=== PATIENT | female | born 1935 | race Caucasian/White ===

== ENCOUNTER → 2023-04-27 | Emergency (ER) | payer OTHER, BC ==
--- OUTSIDE RECORDS SUMMARY | 2023-04-27 17:27 | XMS REPORT | Continuity of Care Document ---
Author Name Unknown Address [address] [place] [address] thconnect Address [address] [facility] 1 495 [place] [address] Care Team Providers Care Projects Manager Name Role Phone PCP, PATIENT DOES NOT HAVE A Primary Care Physic jordan Unavailable KIM SULTANA Attending Clinician Unavailable MOSHE LEWIS Attending Clinician Unavailable EMBER ATKINSON Attending Clinician UnavailKIM Hardin Admitting Clinician Unavailable Payers Payer Name Policy Type Policy Number Effective Date Expirati on Date Source MEDICARE PART A \T\ B [id number] 2002 00:00:00 Dotted BlockGABRIELLE EDWARDS [id number] 2005 00:00:00 Problems Condition Name Condition Details Condition Category Status Onset Date Resolution Date Last Treatment Date Treating Clinician Comments Source Problem Condition [facility] Allergies, Adverse Reactions, Alerts Allergy Name Allergy Type Status Severity Reaction(s) Onset Date Inactive Date Treating Clinician Comments Source SULFA (SULFONA MIDE ANTIBIOT ICS) Drug Class Active Other-Cmnt 2018-03 00:00: 00 [facility] PENICILL IN DRUG INGREDI Active Anaphylaxis 2018-03 00:00: 00 [facility] Penicill in Allergy to substanc e Active Unknown 12-18 00:00: 00 [facility] Sulfonam hetal Allergy to substanc e Active Unknown 12-18 00:00: 00 [facility] Social History Social Habit Start Date Stop Date Quantity Comments Source Sex Ass[birth year] At 1935 00:00:00 1935 00:00:00 Female [facility] Smoking Status Start Date Stop Date Source Never smoked tobacco (finding) [facility] Medications Ordered Medication Name Filled Medication Name Start Date Stop Date Current Medication? Ordering Clinician Indication Dosage Frequency Signature (SIG) Comments Components Source Aspirin (Halfprin) 81 Mg TABEC No 81mg Daily [facility] Carvedilol (Coreg) 6.25 Mg TAB No 6.25mg Twic e A Day [facility] [place] Calcium1 Tab No 1 Twice A Day [facility] Lovastatin (Mevacor Immediate Release) 40 Mg TAB No 80mg Bedtime [facility] Multivitami ns/Minerals (Centrum Silver) 1 Tab TABLET No 1 Daily [facility] Solifenacin (Vesicare) 10 Mg TAB No 10mg Daily [facility] Tramadol Hcl (Ultram) 50 Mg TAB No 50mg Prn Pain [facility] Valsartan (Diovan) 160 Mg TAB No 160mg Bedtime [facility] Aspirin (Halfprin) 81 Mg TABEC No 81mg Daily [facility] Calcium/Vit negron D (Citracal + D) 1 Tab TAB No 1 Twice A Day [facility] Carvedilol (Coreg) 6.25 Mg TAB No 6.25mg Twic e A Day [facility] Lovastatin (Mevacor Immediate Release) 40 Mg TAB No 80mg Bedtime [facility] Multivitami ns/Minerals (Centrum Silver) 1 Tab TABLET No 1 Daily [facility] Solifenacin (Vesicare) 10 Mg TAB No 10mg Daily [facility] Tramadol Hcl (Ultram) 50 Mg TAB No 50mg Prn Pain [facility] Valsartan (Diovan) 160 Mg TAB No 160mg Bedtime [facility] Aspirin (Halfprin) 81 Mg TABEC No 81mg Daily [facility] Calcium/Vit negron D (Citracal + D) 1 Tab TAB No 1 Twice A Day [facility] Carvedilol (Coreg) 6.25 Mg TAB No 6.25mg Twic e A Day [facility] Lovastatin (Mevacor Immediate Release) 40 Mg TAB No 80mg Bedtime [facility] Multivitami ns/Minerals (Centrum Silver) 1 Tab TABLET No 1 Daily [facility] Solifenacin (Vesicare) 10 Mg TAB No 10mg Daily [facility] Tramadol Hcl (Ultram) 50 Mg TAB No 50mg Prn Pain [facility] Valsartan (Diovan) 160 Mg TAB No 160mg [facility] Start Date/Time End Date/Time Encounter Type Admission Type Attending Clinicians Care Facility Care Department Encounter ID Source 2020-08-08 12:25:00 2020-08-08 14:35:00 Emergency X KIM SULTANA RUST ERT [id number] [facility] 2019-07-30 00:00:00 2019-08-29 00:01:00 Outpatient MOSHE CHOPRA [id number] [facility] 2019-06-30 10:38:00 2019-06-30 10:38:00 Discharged Recurring MOSHE CHOPRA [id number] [facility] 2019-06-01 08:41:00 2019-06-01 08:41:00 Discharged Recurring MOSHE CHOPRA [id number] [facility] 2019-03-27 00:56:30 2019-03-27 02:41:00 Emergency X EMBER ATKINSON RUST ERT [id number] [facility] Results Test Description Test Time Test Comments Results Result Co mments Source [facility] 2022-04-06 1506 >100,000 CFU/ML [facility] 2022-04-06 1507 OXIDASE NEGATIVE GRAM NEGATIVE BACILLI ISOLATED PRELIMINARY REPORT [facility] 2022-04-06 1508 ID AND/OR SENSITIVITY TO FOLLOW PRELIMINARY REPORT MG Mammo Digital Screening [id number] 08:57:13Patient: QASIM HARDIN Date/Time05/18/2018 14:17 CSTReason for ExamMAMMO SCREENI NGReportCAD MAMMOGRAM: With tomocenthesisCOMPARISON: [facility] 2012CLINICAL INFORMATION: ScreeningRoutine mediolateral and craniocaudal films of the breasts are made. Fibronodular changes in both breast which are unchanged from the prior mammogram in 2012. No malignantappearing calcifications are seen. There is no evidence of skin thickening, nipple retraction or abnormal microcalcification.Both breasts show predominantly heterogeneously dense parenchymal pattern.IMPRESSION: Stable mammogram compared to 2012.BI-RADS: Category 2 - Benign - Routine mammography screening.Patient has been entered into an automated recall system regarding future mammogram followup. Final Dictated by: MD Anderson Craig ADictated DT/TM: 05/19/2018 8:56 amSigned by: MD Anderson Craig ASigned (Electronic Signature): 05/19/2018 8:57 amLEXISCAN KAYLEEN. REST/[id number] 14:31:[address] [address]ALTVEAOXEB IMAGING REPORTPatient Name: Agusto HARDIN of Service: [id number]: [id number] Sex: F Order #: [id number] Room: OPEDOB: 1935 X-Ray Number: [id number] Record Number: [id number] Hospital Number: [id number] Physician: MARIA TERESA CHICAS - Ordering Physician: MARIA TERESA CHICAS -NUCLEAR CARDIAC EVALUATION WITH REST AND STRESS:CLINICAL HISTORY: Chronic dyspnea, sleep apnea and hypertensionTECHNIQUE: This patientwas administered 10.2 millicuries of [id number] labeled Myoview intravenously for the resting portion of thisexamination. The stress portion of examination was monitored by . Stress was achieved utilizing intravenous Lexiscan. An mhjcvgaoei19.2 mCi of the tracer was injected intravenously for the stress portionof examination.FINDINGS: There is a normal distribution of tracer demonstrated on theresting sequence.The stress images are also normal with no evidence of a stress-induceddefect.Calculated left ventricular ejection fraction is 67%.Dynamic wall motion images are normal.Impre ssion: Normal examinationElectronically Signed By: Nelson Burgess M.D., 10/03/2016 2:29 PMLegalltherese authenticated by MARCELL Flower 2016-10-03 14:29:38
--- NOTE | 2023-04-27 18:21 | RAD REPORT ---
EXAM DESCRIPTION: RAD - Knee Left 3 View - 04/27/2023 6:15 pm CLINICAL HISTORY: fall COMPARISON: No comparisons FINDINGS/IMPRESSION: No acute fracture. No malalignment. No significant focal degenerative changes. Peripheral vascular calcifications.
--- NOTE | 2023-04-27 18:22 | RAD REPORT ---
EXAM DESCRIPTION: RAD - Hip Left 2 View - 04/27/2023 6:15 pm CLINICAL HISTORY: fall COMPARISON: No comparisons FINDINGS/IMPRESSION: No acute fracture. Intact left hip arthroplasty. No dislocation.
[2023-04-27 18:29] LABS: Absolute Lymphocytes (CBC) 1.1 K/uL (0.7-4.9); Hematocrit 39.7 % (36.0-45.0); Lymphocytes % 17.2 % (15.3-44.8); Platelets 147 thou/uL (152-406); RBC Red Blood Cell Count 4.22 M/uL (3.86-4.86)
[2023-04-27 18:48] LABS: Specific Gravity 1.007 (1.005-1.030); Urine Bacteria None Seen /HPF (<20); Urine Bilirubin NEGATIVE (Negative); Urine Blood Negative (Negative); Urine Clarity Clear (Clear); Urine Color Colorless (Yellow); Urine Glucose NEGATIVE (Negative); Urine Protein NEGATIVE (Negative); Urine RBC <5 /HPF (None Seen); Urine Urobilinogen Normal (Normal)
[2023-04-27 18:52] LABS: Albumin 3.2 g/dL (3.4-5.0); Bilirubin Direct 0.2 mg/dL (0-0.2); Bilirubin Indirect, Calculated 0.5 mg/dL (0.2-0.8); Bilirubin Total 0.7 mg/dL (0.2-1.0); Potassium 3.5 mEq/L (3.5-5.1); Protein, Total 6.9 g/dL (6.4-8.2); Troponin High Sensitivity 27.6 pg/mL (<58.9)
--- NOTE | 2023-04-27 19:11 | ER ---
Nurse's Notes [facility] Name: Nerissa Batista Age: 88 yrs Sex: Female : 1935 Arrival Date: 04/27/2023 Time: 17:25 Bed 5 Private MD: Diagnosis: Mechanical fall Presentation: 04/27 17:47 Chief complaint: EMS states: Pt from [facility], this morning she was attempting to ph get out of bed to silence her cell phone and slid out of bed onto the floor, was unable to get up, was not found until this afternoon. Pt was able to stand w/ assistance, mild pain to L knee, family reports that she has been non-compliant w/ daily medications and they are concerned about a possible UTI. Pt A\T\O, BGL WNL. Coronavirus screen: Vaccine status: Patient reports receiving the 2nd dose of the covid vaccine. Ebola Screen: No symptoms or risks identified at this time. Initial Sepsis Screen: Does the patient meet any 2 criteria? No. Patient's initial sepsis screen is negative. Does the patient have a suspected source of infection? No. Patient's initial sepsis screen is negative. Risk Assessment: Do you want to hurt yourself or someone else? Patient reports no desire to harm self or others. Onset of symptoms was April 27, 2023. 17:47 Method Of Arrival: EMS: [facility] ph 17:47 Acuity: LIN 2 ph Historical: - Allergies: 18:35 PENICILLINS; aa5 18:35 Sulfa (Sulfonamide Antibiotics); aa5 - Home Meds: 19:10 losartan 25 mg oral tablet 1 tab daily [Active]; levothyroxine 75 mcg tablet 1 tab ph daily [Active]; - PMHx: 18:49 Hypertensive disorder; Hypothyroidism; ph - Immunization history:: Adult Immunizations unknown. - Social history:: Smoking status: Patient denies any tobacco usage or history of. - Family history:: not pertinent. Screenin:[address] [facility] ED Fall Risk Assessment (Adult) History of falling in the last 3 months, ph including since admission Yes- single mechanical fall (1 pt) Confusion or Disorientation No (0 pts) Intoxicated or Sedated No (0 pts) Impaired Gait No (0 pts) Mobility Assist Device Used Yes (1 pt) Altered Elimination Yes (1 pt) Score/Fall Risk Level 3 or more points = High Risk Oriented to surroundings, Maintained a safe environment, Hourly rounding (assess needs \T\ fall precautionary measures) done, Used ambulatory aids as needed (educated on \T\ assisted with). Abuse screen: Denies threats or abuse. Denies injuries from another. Nutritional screening: No deficits noted. Tuberculosis screening: No symptoms or risk factors identified. Assessment: 18:45 General: Appears in no apparent distress. comfortable, slender, well groomed, Behavior ph is calm, cooperative, appropriate for age, Denies fever, feeling ill. Pain: Complains of pain in posterior aspect of left knee. Neuro: Level of Consciousness is awake, alert, obeys commands, Oriented to person, place, time, situation. Cardiovascular: Capillary refill < 3 seconds in bilateral fingers Patient's skin is warm and dry. Respiratory: Airway is patent Respiratory effort is even, unlabored. GI: No signs and/or symptoms were reported involving the gastrointestinal system. : No signs and/or symptoms were reported regarding the genitourinary system. Derm: Skin is pink, warm \T\ dry. Musculoskeletal: Circulation, motion, and sensation intact. Range of motion: intact in all extremities. 19:07 Reassessment: Patient appears in no apparent distress at this time. Patient and/or ph family updated on plan of care and expected duration. Pain level reassessed. Daughter went to [facility] and picked up home medication, Losartan 25 mg and Levothyroxine 0.075 mg, dose of losartan given. Vital Signs: 17:47 BP 170 / 118; Pulse 89; Resp 18; Temp 98; Pulse Ox 100% on R/A; Weight 61.23 kg; Height ph 5 ft. 3 in. ; 18:49 BP 194 / 88; Pulse 84; Resp 18; Pulse Ox 99% on R/A; ph 19:00 BP 190 / 91; Pulse 89; Resp 16; Pulse Ox 100% ; vc1 17:47 Body Mass Index 23.91 (61.23 kg, 160.02 cm) ED Course: 17:26 Patient arrived in ED. ph 17:27 Topher Rodriguez MD is Attending Physician. rt 17:46 Gladys Muhammad RN is Primary Nurse. ph 17:52 Triage completed. ph 17:53 Arm band placed on Patient placed in an exam room. ph 17:54 Patient has correct armband on for positive identification. Placed in gown. Bed in low ph position. Call light in reach. Side rails up X2. Client placed on continuous cardiac and pulse oximetry monitoring. NIBP monitoring applied. 18:17 Knee Left 3 View XRAY In Process Unspecified. EDMS 18:17 Hip Left 2 View XRAY In Process Unspecified. EDMS 18:18 Missed attempt(s): 22 gauge in right antecubital area. Bleeding controlled, band aid ds4 applied, catheter tip intact. 18:30 Urine collected: sent to lab. aa5 19:43 No provider procedures requiring assistance completed. Patient did not have IV access vc1 during this emergency room visit. Administered Medications: No medications were administered Medication: 17:54 VIS not applicable for this client. ph Outcome: 19:10 Discharge ordered by . rt 19:43 Discharged to home via wheelchair, with family, vc1 19:43 Condition: good 19:43 Discharge instructions given to patient, family, Instructed on discharge instructions, follow up and referral plans. Demonstrated understanding of instructions, follow-up care, 19:43 Patient left the ED. vc1 Signatures: Dispatcher [employer] EDMelody Wilson RN RN aa5 Ravi Chatterjee ds4 Gladys Muhammad, FINA RN ph Kellee Zaldivar RN RN vc1 Topher Rodriguez MD MD rt
--- NOTE | 2023-04-27 19:11 | EDPHYS ---
Physician Documentation [facility] Name: Nerissa Batista Age: 88 yrs Sex: Female : 1935 Arrival Date: 04/27/2023 Time: 17:25 Bed 5 Private MD: ED Physician Topher Rodriguez HPI: 04/27 18:24 This 88 yrs old Female presents to ER via EMS with complaints of fall. rt 18:24 Patient presents to the ED with mechanical fall. Patient slid out of bed, landing onto rt her left side. She states that she hit her left thigh, denies significant pain to that area. The patient adamantly denies hitting her head, denies any head, neck pain. Denies any pain to the right leg. Patient states that she was unable to get up following the fall and has been lying on the floor for many hours. Denies other acute complaints at this time, symptoms are moderate in severity, no other aggravating elevating factors.. Historical: - Allergies: 18:35 PENICILLINS; aa5 18:35 Sulfa (Sulfonamide Antibiotics); aa5 - Home Meds: 19:10 losartan 25 mg oral tablet 1 tab daily [Active]; levothyroxine 75 mcg tablet 1 tab ph daily [Active]; - PMHx: 18:49 Hypertensive disorder; Hypothyroidism; ph - Immunization history:: Adult Immunizations unknown. - Social history:: Smoking status: Patient denies any tobacco usage or history of. - Family history:: not pertinent. ROS: 18:24 Constitutional: Negative for fever, chills, and weight loss, Cardiovascular: Negative rt for chest pain, palpitations, and edema, Respiratory: Negative for shortness of breath, cough, wheezing, and pleuritic chest pain, Abdomen/GI: Negative for abdominal pain, nausea, vomiting, diarrhea, and constipation, Skin: Negative for injury, rash, and discoloration, Neuro: Negative for headache, weakness, numbness, tingling, and seizure, Psych: Negative for depression, anxiety, suicide ideation, homicidal ideation, and hallucinations, 18:24 MS/extremity: Positive for pain, Negative for deformity, Exam: 18:24 Constitutional: This is a well developed, well nourished patient who is awake, alert, rt and in no acute distress. Head/Face: Normocephalic, atraumatic. Neck: Trachea midline, no thyromegaly or masses palpated, and no cervical lymphadenopathy. Supple, full range of motion without nuchal rigidity, or vertebral point tenderness. No Meningismus. Chest/axilla: Normal chest wall appearance and motion. Nontender with no deformity. No lesions are appreciated. Cardiovascular: Regular rate and rhythm with a normal S1 and S2. No gallops, murmurs, or rubs. Normal PMI, no JVD. No pulse deficits. Respiratory: Lungs have equal breath sounds bilaterally, clear to auscultation and percussion. No rales, rhonchi or wheezes noted. No increased work of breathing, no retractions or nasal flaring. Abdomen/GI: Soft, non-tender, with normal bowel sounds. No distension or tympany. No guarding or rebound. No evidence of tenderness throughout. Back: No spinal tenderness. No costovertebral tenderness. Full range of motion. Skin: Warm, dry with normal turgor. Normal color with no rashes, no lesions, and no evidence of cellulitis. MS/ Extremity: Pulses equal, no cyanosis. Neurovascular intact. Full, normal range of motion. Neuro: Awake and alert, GCS 15, oriented to person, place, time, and situation. Cranial nerves II-XII grossly intact. Motor strength 5/5 in all extremities. Sensory grossly intact. Cerebellar exam normal. Normal gait. Psych: Awake, alert, with orientation to person, place and time. Behavior, mood, and affect are within normal limits. 19:03 ECG was reviewed by the Attending Physician. rt Vital Signs: 17:47 BP 170 / 118; Pulse 89; Resp 18; Temp 98; Pulse Ox 100% on R/A; Weight 61.23 kg; Height ph 5 ft. 3 in. ; 18:49 BP 194 / 88; Pulse 84; Resp 18; Pulse Ox 99% on R/A; ph 19:00 BP 190 / 91; Pulse 89; Resp 16; Pulse Ox 100% ; vc1 17:47 Body Mass Index 23.91 (61.23 kg, 160.02 cm) ph MDM: 17:27 Patient medically screened. rt 19:11 Differential Diagnosis Fall, fracture, electrolyte disturbance, rhabdomyolysis, UTI. rt Data reviewed: vital signs, nurses notes, lab test result(s), EKG, radiologic studies. Consideration of Admission/Observation Escalation of care including admission/observation considered. No syncopal event, labs benign, no benefit from admission at this time.. Independent interpretation of the following test(s) in the Emergency Department X-Ray: My interpretation is No fracture seen on interpretation of x-ray images. Test considered but Not performed: CT: Patient remembers the entire event, no loss of consciousness, adamantly denies head trauma, CT scan of the head not indicated. Care significantly affected by the following chronic conditions: Hypertension. Counseling: I had a detailed discussion with the patient and/or guardian regarding the historical points, exam findings, and any diagnostic results supporting the discharge/admit diagnosis, the presence of at least one elevated blood pressure reading (>120/80) during this emergency department visit, lab results, radiology results, the need for outpatient follow up, to return to the emergency department if symptoms worsen or persist or if there are any questions or concerns that arise at home. 04/27 17:28 Order name: Basic Metabolic Panel; Complete Time: 18:59 rt 04/27 17:28 Order name: CBC with Diff; Complete Time: 18:59 rt 04/27 17:28 Order name: LFT's; Complete Time: 18:59 rt 04/27 17:28 Order name: Magnesium; Complete Time: 18:59 rt 04/27 17:28 Order name: Troponin HS; Complete Time: 18:59 rt 04/27 17:28 Order name: CPK; Complete Time: 18:59 rt 04/27 17:52 Order name: UAM; Complete Time: 18:59 04/27 17:28 Order name: Knee Left 3 View XRAY; Complete Time: 18:23 rt 04/27 17:28 Order name: Hip Left 2 View XRAY; Complete Time: 18:23 rt 04/27 17:28 Order name: EKG; Complete Time: 17:28 rt 04/27 17:28 Order name: Cardiac monitoring; Complete Time: 18:13 04/27 17:28 Order name: EKG - Nurse/Tech; Complete Time: 18:13 04/27 17:28 Order name: IV Saline Lock; Complete Time: 18:13 04/27 17:28 Order name: Labs collected and sent; Complete Time: 18:13 04/27 17:28 Order name: O2 Per Protocol; Complete Time: 18:13 rt 04/27 17:28 Order name: O2 Sat Monitoring; Complete Time: 18:13 rt EC:03 Rate is 81 beats/min. Rhythm is regular, Normal Sinus Rhythm with No ectopy. QRS Maybell rt is Normal. MI interval is normal. QRS interval is normal. QT interval is normal. No Q waves. T waves are Normal. No ST changes noted. Interpreted by me. Administered Medications: No medications were administered Disposition Summary: 04/27/23 19:10 Discharge Ordered Notes: Location: Home rt Problem: new rt Symptoms: have improved rt Condition: Stable rt Diagnosis - Mechanical fall rt Followup: rt - With: Private Physician - When: 2 - 3 days - Reason: Discharge Instructions: - Discharge Summary Sheet rt - Fall Prevention in the Home, Adult rt Forms: - Medication Reconciliation Form rt - Thank You Letter rt - Antibiotic Education rt - Prescription Opioid Use rt - Patient Portal Instructions rt - Leadership Thank You Letter rt Signatures: Dispatcher [employer] Melody Sanabria RN RN aa5 Gladys Muhammad RN RN ph Michael, MD DINORAH Obando rt
[2023-04-27 21:46] VITALS: BP 190/91; TEMP 98; O2SAT 100
== END ==
LOC: ER 17:25
DX: M25.552 Pain in left hip (principal); M25.562 Pain in left knee; W06.XXXA Fall from bed, initial encounter; E03.9 Hypothyroidism, unspecified; I10 Essential (primary) hypertension; Z88.0 Allergy status to penicillin; Z88.2 Allergy status to sulfonamides
CPT/HCPCS: 36415; 80048; 80076; 81001; 82550; 83735; 84484; 85025; 93005

== ENCOUNTER → 2023-06-10 | Emergency (ER) | payer OTHER, BC ==
[~2023-06-10] MED LIST: HYDROCODONE/APAP 5/325 MG TAB ONE; ONDANSETRON 4 MG (ODT) TAB ONE
--- OUTSIDE RECORDS SUMMARY | 2023-06-10 19:54 | XMS REPORT | Continuity of Care Document ---
Author Name Unknown Address [address] [place] [address] [address] [place] [address] [facility] thconnect Address [address] [facility]. [address] [place] [address] Care Team Providers Care Slurry Worker Name Role Phone PCP, PATIENT DOES NOT HAVE A Primary Care Physic jordan Unavailable KIM SULTANA Attending Clinician Unavailable MOSHE LEWIS Attending Clinician Unavailable EMBER ATKINSON Attending Clinician UnavailKIM Hardin Admitting Clinician Unavailable Payers Payer Name Policy Type Policy Number Effective Date Expirati on Date Source MEDICARE PART A \T\ B [id number] 2002 00:00:00 KAYLIN EDWARDS [id number] 2005 00:00:00 Problems Condition Name Condition Details Condition Category Status Onset Date Resolution Date Last Treatment Date Treating Clinician Comments Source Problem Condition [facility] Allergies, Adverse Reactions, Alerts Allergy Name Allergy Type Status Severity Reaction(s) Onset Date Inactive Date Treating Clinician Comments Source SULFA (SULFONA MIDE ANTIBIOT ICS) Drug Class Active Other-Cmnt 2018-03 00:00: 00 [facility] acute hospital PENICILL IN DRUG INGREDI Active Anaphylaxis 2018-03 00:00: 00 General acute hospital Penicill in Allergy to substanc e Active Unknown 12-18 00:00: 00 [facility] Sulfonam hetal Allergy to substanc e Active Unknown 12-18 00:00: 00 [facility] Social History Social Habit Start Date Stop Date Quantity Comments Source Sex Assigned At 1935 00:00:00 1935 00:00:00 Female [facility] [employer] Smoking Status Start Date Stop Date Source Never smoked tobacco (finding) [facility] Medications Ordered Medication Name Filled Medication Name Start Date Stop Date Current Medication? Ordering Clinician Indication Dosage Frequency Signature (SIG) Comments Components Source Aspirin (Halfprin) 81 Mg TABEC No 81mg Daily [facility] Carvedilol (Coreg) 6.25 Mg TAB No 6.25mg Twic e A Day [facility] [place] Calcium1 Tab No 1 Twice A Day [facility] Lovastatin (Mevacor Immediate Release) 40 Mg TAB No 80mg Bedtime [facility] Multivitami ns/Minerals (Centrum Silver) 1 Tab TABLET No 1 Daily [facility] Solifenacin (Vesicare) 10 Mg TAB No 10mg Daily [facility] Tramadol Hcl (Ultram) 50 Mg TAB No 50mg Prn Pain [facility] Valsartan (Diovan) 160 Mg TAB No 160mg Bedtime C [facility] Aspirin (Halfprin) 81 Mg TABEC No 81mg Daily [facility] Calcium/Vit negron D (Citracal + D) 1 Tab TAB No 1 Twice A Day [facility] Carvedilol (Coreg) 6.25 Mg TAB No 6.25mg Twic e A Day [facility] Lovastatin (Mevacor Immediate Release) 40 Mg TAB No 80mg Bedtime [facility] Multivitami ns/Minerals (Centrum Silver) 1 Tab TABLET No 1 Daily [facility] Solifenacin (Vesicare) 10 Mg TAB No 10mg Daily [facility] Tramadol Hcl (Ultram) 50 Mg TAB No 50mg Prn Pain [facility] Valsartan (Diovan) 160 Mg TAB No 160mg Bedtime C [facility] Aspirin (Halfprin) 81 Mg TABEC No 81mg Daily [facility] Calcium/Vit negron D (Citracal + D) 1 Tab TAB No 1 Twice A Day [facility] Carvedilol (Coreg) 6.25 Mg TAB No 6.25mg Twic e A Day [facility] Lovastatin (Mevacor Immediate Release) 40 Mg TAB No 80mg Bedtime [facility] Multivitami ns/Minerals (Centrum Silver) 1 Tab TABLET No 1 Daily [facility] Solifenacin (Vesicare) 10 Mg TAB No 10mg Daily [facility] Tramadol Hcl (Ultram) 50 Mg TAB No 50mg Prn Pain [facility] Valsartan (Diovan) 160 Mg TAB No 160mg [facility] Start Date/Time End Date/Time Encounter Type Admission Type Attending [facility] Care Department Encounter ID Source 2020-08-08 12:25:00 2020-08-08 14:35:00 Emergency X SULTANAKIM DUBOSE [facility] ERT [id number] General acute hospital 2019-07-30 00:00:00 2019-08-29 00:01:00 Outpatient MOSHE CHOPRA [id number] [facility] 2019-06-30 10:38:00 2019-06-30 10:38:00 Discharged Recurring MOSHE CHOPRA [id number] [facility] 2019-06-01 08:41:00 2019-06-01 08:41:00 Discharged Recurring MOSHE CHOPRA [id number] [facility] 2019-03-27 00:56:30 2019-03-27 02:41:00 Emergency X EMBER ATKINSON [facility] ERT [id number] General acute hospital Results Test Description Test Time Test Comments Results Result Co mments Source [facility] 2022-04-06 1506 >100,000 CFU/ML [facility] 2022-04-06 1507 OXIDASE NEGATIVE GRAM NEGATIVE BACILLI ISOLATED PRELIMINARY REPORT [facility] 2022-04-06 1508 ID AND/OR SENSITIVITY TO FOLLOW PRELIMINARY REPORT MG Mammo Digital Screening [id number] 08:57:13Patient: QASIM HARDIN Date/Time05/18/2018 14:17 CSTReason for ExamMAMMO SCREEN INGReportCAD MAMMOGRAM: With tomocenthesisCOMPARISON: [facility] 2012CLINICAL INFORMATION: ScreeningRoutine mediolateral and craniocaudal films of the breasts are made. Fibronodular changes in both breast which are unchanged from the prior mammogram in 2012. No malignant appearing calcifications are seen. There is no evidence [...] ASigned (Electronic Signature): 05/19/2018 8:57 amLEXISCAN KAYLEEN. REST/[id number] 14:31:[address] [address]BLBFILUFWX IMAGING REPORTPatient Name: Agusto HARDIN of Service: [id number]: 81 Sex: F Order #: [id number] Room: OPEDOB: 1935 X-Ray Number: [id number] Record Number: [id number] Hospital Number: [id number] Physician: MARIA TERESA CHICAS - Ordering Physician: MARIA TERESA CHICAS -NUCLEAR CARDIAC EVALUATION WITH REST AND STRESS:CLINICAL HISTORY: Chronic dyspnea, sleep apnea and hypertensionTECHNIQUE: This patientwas administered 10.2 millicuries of oknhqsnopk81j labeled Myoview intravenously for the resting portion of thisexamination. The stress portion of examination was monitored by . Stress was achieved utilizing intravenous Lexiscan. An duczmdqeui65.2 mCi of the tracer was injected intravenously for the stress portionof examination.FINDINGS: There is a normal distribution of tracer demonstrated on theresting sequence.The stress images are also normal with no evidence of a stress-induceddefect.Calculated left ventricular ejection fraction is 67%.Dynamic wall motion images are normal.Impre ssion: Normal examinationElectronically Signed By: Neslon Burgess M.D., 10/03/2016 2:29 PMLegally authenticated by MARCELL Flower 2016-10-03 14:29:38
--- NOTE | 2023-06-10 21:05 | RAD REPORT ---
EXAM DESCRIPTION: CT - Chest Abd Pelvis Wo Con - 06/10/2023 8:51 pm CLINICAL HISTORY: Chest and abdomen pain. acute fall, spinal and flank pain COMPARISON: No comparisons TECHNIQUE: A limited noncontrast study was performed. All CT scans are performed using dose optimization technique as appropriate and may include automated exposure control or mA/KV adjustment according to patient size. FINDINGS: There is a mildly displaced fracture posterior left tenth and eleventh rib. Posterior nint h rib may also be fractured.The lungs are emphysematous.Small left pleural effusion.No intrathoracic adenopathy. The liver, spleen, pancreas, adrenal glands and kidneys are within normal limits. No bowel obstruction, free air, free fluid or abscess. No pathologic lymphadenopathy in the abdomen or pelvis. Moderate lumbar degenerative changes. IMPRESSION: Mildly displaced left posterior tenth and eleventh ribs with small left pleural effusion .
--- NOTE | 2023-06-10 21:44 | EDPHYS ---
Physician Documentation [facility] Name: Nerissa Batista Age: 88 yrs Sex: Female : 1935 Arrival Date: 06/10/2023 Time: 19:52 Bed DX3 Private MD: ED Physician Tima Tena HPI: 06/09 20:04 This 88 yrs old Female presents to ER via Unassigned with complaints of Fall sp4 Injury. Historical: - Allergies: 20:13 PENICILLINS; nj1 20:13 Sulfa (Sulfonamide Antibiotics); nj1 - PMHx: 20:13 Hypertensive disorder; Hypothyroidism; nj1 - Immunization history:: Client reports receiving the 2nd dose of the Covid vaccine, Adult Immunizations. - Social history:: Smoking status: Patient denies any tobacco usage or history of. Vital Signs: 20:01 BP 184 / 80; Pulse 86; Resp 18; Temp 98(O); Pulse Ox 99% on R/A; Weight 54.43 kg; nj1 Height 5 ft. 3 in. ; 21:59 BP 171 / 81; Pulse 84; Resp 17 S; Temp 97.6(TE); Pulse Ox 99% on R/A; lg3 20:01 Body Mass Index 21.26 (54.43 kg, 160.02 cm) nj1 MDM: 20:31 Patient medically screened. sp4 21:26 ED course: EXAM DESCRIPTION: CT - Chest Abd Pelvis Wo Con - 06/10/2023 8:51 pm CLINICAL sp4 HISTORY: Chest and abdomen pain. acute fall, spinal and flank pain COMPARISON: No comparisons TECHNIQUE: A limited noncontrast study was performed. All CT scans are performed using dose optimization technique as appropriate and may include automated exposure control or mA/KV adjustment according to patient size. FINDINGS: There is a mildly displaced fracture posterior left tenth and eleventh rib. Posterior ninth rib may also be fractured.The lungs are emphysematous.Small left pleural effusion.No intrathoracic adenopathy. The liver, spleen, pancreas, adrenal glands and kidneys are within normal limits. No bowel obstruction, free air, free fluid or abscess. No pathologic lymphadenopathy in the abdomen or pelvis. Moderate lumbar degenerative changes. IMPRESSION: Mildly displaced left posterior tenth and eleventh ribs with small left pleural effusion. Signed By: Pastor Humphries MD. 21:42 Differential diagnosis: closed head injury, contusion, fracture, laceration, multiple sp4 trauma, sprain, strain. Data reviewed: vital signs, nurses notes, radiologic studies, CT scan. ED course: CT has revealed left posterior 10th and 11th rib fracture with a small pleural effusion. No sign of hemothorax or pneumothorax. Patient is stable for discharge home at this time with p.o. as needed [place], p.o. as needed Robaxin and also advised to use incentive spirometer every 2 hours. . 06/09 20:14 Order name: CT Chest Abdomen Pelvis W/O Contrast sp4 Administered Medications: 20:19 Drug: HYDROcodone-acetaminophen PO 5 mg-325 mg 1 tabs PO once Route: PO; nj1 22:03 Follow up: Response: No adverse reaction lg3 20:19 Drug: Ondansetron PO 4 mg PO once Route: PO; nj1 22:03 Follow up: Response: No adverse reaction lg3 Disposition Summary: 06/10/23 21:44 Discharge Ordered Problem: new sp4 Symptoms: have improved sp4 Condition: Stable sp4 Diagnosis - Multiple fractures of ribs, right side sp4 - Acute fall at home, left 10th rib fracture, left posterior 11th rib fracture, left sp4 small pleural effusion Followup: sp4 - With: Private Physician - When: 10 - 14 days - Reason: Recheck today's complaints Discharge Instructions: - Discharge Summary Sheet sp4 - How to Use an Incentive Spirometer sp4 - Rib Fracture, [id number] sp4 Forms: - Patient Portal Instructions sp4 Prescriptions: - methocarbamol 750 mg Oral tablet - take 1 tablet ORAL route every 8 hours PRN muscle soreness; 30 tablet; Refills: sp4 0, Product Selection Permitted Signatures: Dispatcher [employer] Tima Hess MD MD sp4 Lee Ann Haynes RN RN nj1 Grace Mosley RN lg3
--- NOTE | 2023-06-10 21:44 | ER ---
Nurse's Notes [facility] Name: Nerissa Batista Age: 88 yrs Sex: Female : 1935 Arrival Date: 06/10/2023 Time: 19:52 Bed DX3 Private MD: Diagnosis: Multiple fractures of ribs, right side;Acute fall at home, left 10th rib fracture, left posterior 11th rib fracture, left small pleural effusion Presentation: 06/09 20:01 Chief complaint: Patient states: was attempting to get up the commode, lost her balance nj1 and fell hitting edge of shower rim. Patient's son or daughter states: Fell in the bathroom today. co left sided back/ribs pain since. Coronavirus screen: Vaccine status: Patient reports receiving the 2nd dose of the covid vaccine. Ebola Screen: Patient denies travel to an Ebola-affected area in the 21 days before illness onset. Initial Sepsis Screen: Does the patient meet any 2 criteria? No. Patient's initial sepsis screen is negative. Does the patient have a suspected source of infection? No. Patient's initial sepsis screen is negative. Risk Assessment: Do you want to hurt yourself or someone else? Patient reports no desire to harm self or others. Onset of symptoms was June 10, 2023. 20:01 Method Of Arrival: Wheelchair nj1 20:01 Acuity: LIN 3 nj1 Historical: - Allergies: 20:13 PENICILLINS; nj1 20:13 Sulfa (Sulfonamide Antibiotics); nj1 - PMHx: 20:13 Hypertensive disorder; Hypothyroidism; nj1 - Immunization history:: Client reports receiving the 2nd dose of the Covid vaccine, Adult Immunizations. - Social history:: Smoking status: Patient denies any tobacco usage or history of. Screenin:59 [facility] ED Fall Risk Assessment (Adult) History of falling in the last 3 months, lg3 including since admission Yes- single mechanical fall (1 pt) Confusion or Disorientation No (0 pts) Intoxicated or Sedated No (0 pts) Impaired Gait Yes (1 pt) Mobility Assist Device Used Yes (1 pt) Altered Elimination No (0 pt) Score/Fall Risk Level 3 or more points = High Risk Oriented to surroundings, Maintained a safe environment, Educated pt \T\ family on fall prevention, incl call for assistance when getting out of bed, Assessed \T\ reinforced patient's understanding of fall precautions, Provided non-skid footwear. Abuse screen: Denies threats or abuse. Denies injuries from another. Nutritional screening: No deficits noted. Tuberculosis screening: No symptoms or risk factors identified. Assessment: 21:59 General: Appears in no apparent distress. comfortable, Behavior is calm, cooperative, lg3 appropriate for age. Pain: Complains of pain in left rib, back Pain does not radiate. Pain currently is 6 out of 10 on a pain scale. Neuro: No deficits noted. Gunter Agitation-Sedation Scale (RASS): 0 - Alert and Calm Level of Consciousness is awake, alert, obeys commands, Oriented to person, place, time, situation, Appropriate for age. Cardiovascular: No deficits noted. Denies chest pain, shortness of breath, Capillary refill < 3 seconds Clubbing of nail beds is absent JVD is absent Patient's skin is warm and dry. Respiratory: No deficits noted. Airway is patent Respiratory effort is even, unlabored, Respiratory pattern is regular, symmetrical, Breath sounds are clear bilaterally. GI: No deficits noted. No signs and/or symptoms were reported involving the gastrointestinal system. Abdomen is flat, non-distended. : No deficits noted. No signs and/or symptoms were reported regarding the genitourinary system. EENT: No deficits noted. No signs and/or symptoms were reported regarding the EENT system. Derm: No deficits noted. No signs and/or symptoms reported regarding the dermatologic system. Skin is intact, is healthy with good turgor, Skin is dry, Skin is normal, Skin temperature is warm. Musculoskeletal: Circulation, motion, and sensation intact. Range of motion: intact in all extremities, Reports pain in left rib, back. Vital Signs: 20:01 BP 184 / 80; Pulse 86; Resp 18; Temp 98(O); Pulse Ox 99% on R/A; Weight 54.43 kg; nj1 Height 5 ft. 3 in. ; 21:59 BP 171 / 81; Pulse 84; Resp 17 S; Temp 97.6(TE); Pulse Ox 99% on R/A; lg3 20:01 Body Mass Index 21.26 (54.43 kg, 160.02 cm) ny1 ED Course: 19:53 Patient arrived in ED. mr 20:04 Tima Tena MD is Attending Physician. sp4 20:13 Triage completed. nj1 20:14 Arm band placed on left wrist. nj1 20:52 CT Chest Abdomen Pelvis W/O Contrast In Process Unspecified. EDMS 21:59 Patient has correct armband on for positive identification. lg3 21:59 No provider procedures requiring assistance completed. Patient did not have IV access lg3 during this emergency room visit. 22:02 Provided Education on: incentive spirometer. lg3 Administered Medications: 20:19 Drug: HYDROcodone-acetaminophen PO 5 mg-325 mg 1 tabs PO once Route: PO; nj1 22:03 Follow up: Response: No adverse reaction lg3 20:19 Drug: Ondansetron PO 4 mg PO once Route: PO; nj1 22:03 Follow up: Response: No adverse reaction lg3 Medication: 21:59 VIS not applicable for this client. lg3 Outcome: 21:44 Discharge ordered by MD. 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 medication usage, Demonstrated understanding of instructions, follow-up care, medications, Prescriptions given X 2, 22:02 Patient left the ED. lg3 Signatures: Dispatcher [employer] [facility] Maria Dolores Gaming, Tashi Reg Grace Barrett, RN RN lg3 Tima Tena MD MD sp4 Lee Ann Haynes RN RN nj1
[2023-06-10 22:52] VITALS: O2SAT 99
[2023-06-10 23:21] VITALS: BP 171/81; TEMP 97.6
== END ==
LOC: ER 19:52
DX: S22.42XA Multiple fractures of ribs, left side, initial encounter for closed fracture (principal); S22.41XA Multiple fractures of ribs, right side, initial encounter for closed fracture; J90 Pleural effusion, not elsewhere classified; W18.30XA Fall on same level, unspecified, initial encounter; Y92.002 Bathroom of unspecified non-institutional (private) residence as the place of occurrence of the external cause; I10 Essential (primary) hypertension; Z88.0 Allergy status to penicillin; Z88.2 Allergy status to sulfonamides
CPT/HCPCS: 71250; 74176; 99283; Q0162

== ENCOUNTER 2024-11-10 21:22 | Inpatient (IN) | payer OTHER ==
--- OUTSIDE RECORDS SUMMARY | 2024-11-10 21:27 | XMS REPORT | Continuity of Care Document ---
Author Name Unknown Address [address] [facility] [place] [address] [facility] Address [address] [facility] 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 Name Role Phone PCP, PATIENT DOES NOT HAVE A Primary Care Physic REBECA Landeros Attending Clinician Sandra Janie Mcpherson MA Attending Clinician Mariana Hassan MA Attending Clinician Evangelina Mary MD Attending Clinician [phone] EVANGELINA PATTERSON Attending Clinician Unavail able Doctor Unassigned, [place] Attending Clinician Destiney Wade MA Attending Clinician Randi Jarrett MD, Rebeca Dewitt Attending Clinician Roz HARDEN, Adri Mclean Attending Clinician Unavail ALEXYS Wynn Attending Clinician ALEXYS Griffith Attending Clinician Unavailab Jono COPELAND, Mustapha Attending Clinician [phone] Alexys Thapa MD Attending Clinician [phone] BLANCA NOLASCO Attending Clinician Randi Call RN, Keshia Attending Clinician Unavailabl e Pob, Ad[facility] Lab Main Attending Clinician Maria Teresa Ramirez MD Attending Clinician MARIA TERESA BHATIA Attending Clinician Randi leyva Doctor Unassigned, [place] Attending Clinician U tiable KIM SULTANA Attending Clinician Unavailable MOSHE LEWIS Attending Clinician Unavailable EMBER ATKINSON Attending Clinician UnavailALEXYS Astudillo Admitting Clinician UnavailAlexys Astudillo MD Admitting Clinician KIM SULTANA Admitting Clinician Unavailable Payers Payer Name Policy Type Policy Number Effective Date Expirati on Date Source [facility] MEDICARE ADVANTAGE Medicare [id number] 2023 00:00:00 Problems Condition Name Condition Details Condition Category Status Onset Date Resolution Date Last Treatment Date Treating Clinician Comments Source Chronic constipati on Chronic constipati on Disease Active 05-04 00:00: 00 Nancioria vinay Smith Epic Dementia in other diseases classified elsewhere, unspecifie d severity, without behavioral disturbanc e, psychotic disturbanc e, mood disturbanc e, and anxiety Dementia in other diseases classified elsewhere, unspecifie d severity, without behavioral disturbanc e, psychotic disturbanc e, mood disturbanc e, and anxiety Disease Active 2- 00:00: 00 Memmaría Jones Seasonal allergies Seasonal allergies Disease Active 05-04 00:00: 00 Sherie Jones Status post fall Status post fall Disease Active 2- 00:00: 00 Sherie Jones Urge urinary incontinen ce Urge urinary incontinen ce Disease Active 2- 00:00: 00 Sherie Jones Walker as ambulation aid Walker as ambulation aid Disease Active 2- 00:00: 00 Sherie Jones Chronic pain of both knees Chronic pain of both knees Disease Active 2- 00:00: 00 Sherie Jones Chest pain Chest pain Disease Active 8-06 00:00: 00 Sherie Jones Acid reflux Acid reflux Disease Active - 00:00: 00 Memmaría Jones Alzheimer' s disease, unspecifie d Alzheimer' s disease, unspecifie d Disease Active 20208-08 00:00: 00 Sherie Jones Essential (primary) hypertensi on Essential (primary) hypertensi on Disease Active 08-08 00:00: 00 Sherie Jones Acquired hypothyroi dism Acquired hypothyroi dism Disease Active 08-08 00:00: 00 Sherie Jones CVA (cerebrova scular accident) CVA (cerebrova scular accident) Disease Active 08-08 00:00: 00 Sherie Jones Dementia Dementia Disease Active 08-08 00:00: 00 Sherie Jones Dysarthria Dysarthria Disease Active 08-08 00:00: 00 Sherie Jones Hypertensi on Hypertensi on Disease Active 08-08 00:00: 00 Sherie Jones Hypothyroi d Hypothyroi d Disease Active 08-08 00:00: 00 Sherie Jones Memory loss Memory loss Disease Active 08-08 00:00: 00 Sherie Jones Falls frequently Falls frequently Disease Active 08-08 00:00: 00 Sherie Jones Problem Condition [facility] Rib fractures Rib fractures Disease Resolve d 08-08 00:00: 00 2024-01-08 00:00:00 2024-01-08 11:33:49 Sherie Jones Allergies, Adverse Reactions, Alerts Allergy Name Allergy Type Status Severity Reaction(s) Onset Date Inactive Date Treating Clinician Comments Source PENICILL IN G DRUG INGREDI Active 08-08 00:00: 00 MHEOUT SULFA ANTIBIOT ICS Drug Class Active 08-08 00:00: 00 MHEOUT Penicill in G Propensi ty to adverse reaction s Active 08-08 00:00: 00 Sherie Jones Sulfa Antibiot ics Propensi ty to adverse reaction s Active 08-08 00:00: 00 Sherie Jones PENICILL IN G DRUG INGREDI Active High Anaphylaxis 2018-03 00:00: 00 MHEOUT Penicill in G Allergy to substanc e Active Anaphylaxis, Unknown 2018-03 00:00: 00 Sherie Jones Sulfa Antibiot ics Drug Intolera nce Active Other, Unknown 2018-03 00:00: 00 "turns my skin purple" Sherie Smith Epic SULFA ANTIBIOT ICS Drug Class Active Other 2018-03 00:00: 00 MHEOUT SULFA (SULFONA MIDE ANTIBIOT ICS) Drug Class Active Other-Cmnt 2018-03 00:00: 00 [facility] Penicill in Propensi ty to adverse reaction s Active Anaphylaxis 2018-03 00:00: 00 [facility] Sulfa (Sulfona mide Antibiot ics) Propensi ty to adverse reaction s Active Other - See comments 2018-03 00:00: 00 "turns my skin purple" [facility] PENICILL IN DRUG INGREDI Active Anaphylaxis 2018-03 00:00: 00 [facility] Penicill in Allergy to substanc e Active Unknown 12-18 00:00: [address] [facility] Sulfonam hetal Allergy to substanc e Active Unknown 12-18 00:00: 00 [facility] Social History Social Habit Start Date Stop Date Quantity Comments Source Gender identity 2023-06-22 08:33:40 Identifies as female gender (finding) Olga Jones ASSERTION Possible Olga Jones Sexual [facility] Alcoholic beverage intake 2024-06-17 00:00:00 2024-06-17 00:00:00 Lifetime non-drinker (finding) Olga Jones History of Social function 2023-11-04 00:00:00 2023-11-04 00:00:00 [facility] Tobacco use and exposure 2023-08-09 00:00:00 2023-08-09 00:00:00 Smokeless tobacco non-user Olga Jones Sex 2023-06-22 08:33:40 2023-06-22 08:33:40 Female (finding) Olga Jones Sex assigned at 1935 00:00:00 1935 00:00:00 [facility] Smoking Status Start Date Stop Date Source Tobacco smoking consumption unknown [facility] Never smoked tobacco Sherie Jones Medications Ordered Medication Name Filled Medication Name Start Date Stop Date Current Medication? Ordering Clinician Indication Dosage Frequency Signature (SIG) Comments Components Source memantine (Namenda) 5 MG tablet memantine (Namenda) 5 MG tablet -15 00:00: 00 Yes TAKE 1 TABLET BY MOUTH IN THE MORNING * TAKE 1 TABLET IN THE EVENING. Sherie Jones memantine (Namenda) 5 MG tablet memantine (Namenda) 5 MG tablet 2-04 00:00: 00 07-13 00:00 :00 No 5mg Q.5D Take 1 tablet by mouth in the morning and 1 tablet in the evening. Sehrie Jones clopidogrel (Plavix) 75 MG tablet clopidogrel (Plavix) 75 MG tablet 2023-03 00:00: 00 Yes 75mg QD TAKE 1 TABLET BY MOUTH 1 TIME EACH DAY. Sherie Jones losartan (Cozaar) 50 MG tablet losartan (Cozaar) 50 MG tablet 12-16 00:00: 00 12-16 23:59 :00 No 50mg QD Take 1 tablet by mouth 1 time each day. Sherie Smith [facility] clopidogrel (Plavix) 75 MG tablet clopidogrel (Plavix) 75 MG tablet -16 00:00: 00 02-08 00:00 :00 No 75mg QD Take 1 tablet by mouth 1 time each day. Sherie Jones loratadine 10 mg tablet 9-13 00:00: 00 Yes 10mg Take 1 tablet by mouth in the morning. [facility] acetaminoph en (acetaminop hen extra srength) 500 MG tablet acetaminoph en (acetaminop hen extra srength) 500 MG tablet 9-03 00:00: 00 Yes TAKE 1 TABLET BY MOUTH DAILY NEEDED FOR MILD PAIN (1-3). Sherie Jones donepezil (Aricept) 10 MG tablet donepezil (Aricept) 10 MG tablet 8- 00:00: 00 11-26 23:59 :00 No 10mg Take 1 tablet by mouth at bedtime. Sherie Smith [facility] acetaminoph en (Tylenol Extra Strength) 500 MG tablet acetaminoph en (Tylenol Extra Strength) 500 MG tablet 11-26 00:00: 00 12-01 00:00 :00 No 500mg Q24H Take 1 tablet by mouth daily as needed for mild pain (1-3). hSerie Jones gabapentin (Neurontin) 100 MG capsule gabapentin (Neurontin) 100 MG capsule 11-23 00:00: 00 11-26 00:00 :00 No 100mg Take 1 capsule by mouth at bedtime. Sherie Jones pneumoc 20-taiwo conj-dip cr(PF) (PREVNAR 20 (PF)) injection 0.5 mL 11-04 15:44: 10 Yes .5mL 0.5 mL, Intramuscu lar, ONCE-PRIOR TO DISCHARGE, 1 dose, Starting on Fri11/05/23 at 1044, Until Discontinu ed, Routine, Give vaccine prior to discharge [facility] aspirin chewable tablet 81 mg 11-04 14:00: 00 Yes 81mg 81 mg, Oral, DAILY, First dose on Fri11/05/23 at 0900, Until Discontinu ed, Routine [facility] enoxaparin (LOVENOX) injection 40 mg 11-04 14:00: 00 Yes 40mg 40 mg, Subcutaneo us, DAILY, First dose on Fri11/05/23 at 0900, Until Discontinu ed, Routine [facility] acetaminoph en (TYLENOL) tablet 650 mg 11-03 22:34: 24 Yes 650mg 650 mg, Oral, Q6HPRN, Starting on Fri11/04/23 at 1734, Until Discontinu ed, Routine, Pain (scale 1-3) [facility] losartan (Cozaar) 50 MG tablet losartan (Cozaar) 50 MG tablet 10-14 00:00: 00 12-15 00:00 :00 No 50mg QD Take 1 tablet by mouth 1 time each day. Sherie Jones triamcinolo ne acetonide 0.1 % cream 10-13 00:00: 00 Yes [facility] donepezil (Aricept) 5 MG tablet donepezil (Aricept) 5 MG tablet 09-23 00:00: 00 11-26 00:00 :00 No 5mg Take 1 tablet by mouth at bedtime. Sherie Jones gabapentin 100 mg capsule 09-18 00:00: 00 03-18 05:59 :00 No 100mg Take 1 capsule by mouth at bedtime. [facility] PLAVIX 75 mg tablet 09-07 00:00: 00 Yes 1 tablet Orally Once a day [facility] clopidogrel (Plavix) 75 MG tablet clopidogrel (Plavix) 75 MG tablet 09-07 00:00: 00 12-14 00:00 :00 No 75mg QD TAKE 1 TABLET BY MOUTH DAILY Sherie Jnoes losartan (Cozaar) 50 MG tablet losartan (Cozaar) 50 MG tablet 07-08 00:00: 00 10-14 00:00 :00 No 50mg QD Take 50 mg by mouth 1 time each day. Sherie Jones donepezil (Aricept) 5 MG tablet donepezil (Aricept) 5 MG tablet 06-18 00:00: 00 09-23 00:00 :00 No 5mg Take 5 mg by mouth at bedtime. Sherie Jones gabapentin (Neurontin) 100 MG capsule gabapentin (Neurontin) 100 MG capsule 06-18 00:00: 00 09-18 00:00 :00 No 100mg Q.5D Take 100 mg by mouth in the morning and 100 mg in the evening. Sherie Jones levothyroxi ne (Synthroid, Levoxyl) 75 MCG tablet levothyroxi ne (Synthroid, Levoxyl) 75 MCG tablet 00:00: 00 Yes 75ug Take 75 mcg by mouth in the morning. Take before meals. Sherie Jones Aspirin (Halfprin) 81 Mg TABEC No 81mg Daily [facility] Carvedilol (Coreg) 6.25 Mg TAB No 6.25mg Twic e A Day [facility] [place] Calcium1 Tab No [address] [facility] Lovastatin (Mevacor Immediate Release) 40 Mg TAB No 80mg Bedtime [facility] Multivitami ns/Minerals (Centrum Silver) 1 Tab TABLET No 1 [facility] Solifenacin (Vesicare) 10 Mg TAB No 10mg Daily [facility] Tramadol Hcl (Ultram) 50 Mg TAB No 50mg Prn Pain [facility] Valsartan (Diovan) 160 Mg TAB No 160mg [facility] Calcium/Vit negron D (Citracal + D) 1 Tab TAB No [address] [facility] Vital Signs Vital Name Observation Time Observation Value Comments S juanita Systolic blood pressure 2024-06-17 13:26:00 170 mm[Hg] [facility] Diastolic blood pressure 2024-06-17 13:26:00 81 mm[Hg] [facility] Heart rate 2024-06-17 13:26:00 74 /min [facility] Body temperature 2024-06-17 13:26:[address] [facility] Respiratory rate 2024-06-17 13:26:00 16 /min [facility] Body height 2024-06-17 13:26:00 153.7 cm [facility] Body weight 2024-06-17 13:26:00 70.308 kg [facility] BMI 2024-06-17 13:26:00 29.77 kg/m2 [facility] Oxygen saturation in Arterial blood by Pulse oximetry 2024-06-17 13:26:00 99 /min [facility] Systolic blood pressure 2024-06-17 13:26:00 170 mm[Hg] [facility] Diastolic blood pressure 2024-06-17 13:26:00 81 mm[Hg] [facility] Heart rate 2024-06-17 13:26:00 74 /min [facility] Body temperature 2024-06-17 13:26:[address] [facility] Respiratory rate 2024-06-17 13:26:00 16 /min [facility] Body height 2024-06-17 13:26:00 153.7 cm Anuel [facility] Luis [facility] Body weight 2024-06-17 13:26:00 70.308 kg Anuel rial [facility] BMI 2024-06-17 13:26:00 29.77 kg/m2 Anuel rial [facility] Oxygen saturation in Arterial blood by Pulse oximetry 2024-06-17 13:26:00 99 /min [facility] Systolic blood pressure 2024-05-04 11:33:00 155 mm[Hg] [facility] Diastolic blood pressure 2024-05-04 11:33:00 78 mm[Hg] [facility] Heart rate 2024-05-04 11:33:00 75 /min [facility] Body temperature 2024-05-04 11:33:00 36.5 [facility] Respiratory rate 2024-05-04 11:33:00 16 /min [facility] Body height 2024-05-04 11:33:00 152.4 cm Anuel rial [facility] Body weight 2024-05-04 11:33:00 67.586 [facility] 2024-05-04 11:33:00 29.10 kg/m2 Anuel rial [facility] Oxygen saturation in Arterial blood by Pulse oximetry 2024-05-04 11:33:00 98 /min [facility] Systolic blood pressure 2024-05-04 11:33:00 155 mm[Hg] [facility] Diastolic blood pressure 2024-05-04 11:33:00 78 mm[Hg] [facility] Heart rate 2024-05-04 11:33:00 75 /min Memor ial Johnston [facility] Body temperature 2024-05-04 11:33:00 36.5 [facility] Epic Respiratory rate 2024-05-04 11:33:00 16 /min [facility] Body height 2024-05-04 11:33:00 152.4 cm Anuel rial [facility] Body weight 2024-05-04 11:33:00 67.586 kg Anuel rial [facility] BMI 2024-05-04 11:33:00 29.10 kg/m2 Anuel rial [facility] Oxygen saturation in Arterial blood by Pulse oximetry 2024-05-04 11:33:00 98 /min [facility] Systolic blood pressure 2024-01-08 11:34:00 142 mm[Hg] [facility] Epic Diastolic blood pressure 2024-01-08 11:34:00 76 mm[Hg] [facility] Epic Heart rate 2024-01-08 11:34:00 78 /min [facility] Body temperature 2024-01-08 11:34:00 36 Jennifer [facility] Respiratory rate 2024-01-08 11:34:00 16 /min [facility] Epic Systolic blood pressure 2024-01-08 11:34:00 142 mm[Hg] [facility] Her sifuentes Epic Diastolic blood pressure 2024-01-08 11:34:00 76 mm[Hg] [facility] Epic Heart rate 2024-01-08 11:34:00 78 /min Memor ial Luis Epic Body temperature 2024-01-08 11:34:00 36 [facility] Epic Respiratory rate 2024-01-08 11:34:00 16 /min [facility] Systolic blood pressure 2023-12-15 19:23:00 184 mm[Hg] [facility] Diastolic blood pressure 2023-12-15 19:23:00 88 mm[Hg] [facility] Heart rate 2023-12-15 19:21:00 78 /min [facility] Body temperature 2023-12-15 19:21:00 37.22 [facility] Body height 2023-12-15 19:21:00 162.6 cm stated [facility] Body weight 2023-12-15 19:21:00 64.592 kg [facility] BMI 2023-12-15 19:21:00 24.44 kg/m2 [facility] Oxygen saturation in Arterial blood by Pulse oximetry 2023-12-15 19:21:00 99 /min [facility] Systolic blood pressure 2023-11-27 10:15:00 166 mm[Hg] [facility] Epic Diastolic blood pressure 2023-11-27 10:15:00 67 mm[Hg] [facility] Epic Heart rate 2023-11-27 10:15:00 81 /min Memor ial [facility] Epic Body temperature 2023-11-27 10:15:00 34 Jennifer [facility] Respiratory rate 2023-11-27 10:15:00 16 /min Olga Smith Epic Oxygen saturation in Arterial blood by Pulse oximetry 2023-11-27 10:15:00 99 /min Olga sifuentes Epic Systolic blood pressure 2023-11-27 10:15:00 166 mm[Hg] Olga sifuentes Epic Diastolic blood pressure 2023-11-27 10:15:00 67 mm[Hg] Olga sifuentes Epic Heart rate 2023-11-27 10:15:00 81 /min Memor iavinay Smith Epic Body temperature 2023-11-27 10:15:00 34 Jennifer [facility] Luis Epic Respiratory rate 2023-11-27 10:15:00 16 /min Olga Smith Epic Oxygen saturation in Arterial blood by Pulse oximetry 2023-11-27 10:15:00 99 /min [facility] Her sifuentes Epic Systolic blood pressure 2023-11-13 16:04:00 158 mm[Hg] [facility] Diastolic blood pressure 2023-11-13 16:04:00 72 mm[Hg] [facility] Heart rate 2023-11-13 16:00:00 74 /min [facility] Body weight 2023-11-13 16:00:00 62.596 kg [facility] BMI 2023-11-13 16:00:00 24.45 kg/m2 [facility] Oxygen saturation in Arterial blood by Pulse oximetry 2023-11-13 16:00:00 99 /min [facility] Systolic blood pressure 2023-11-05 18:45:00 140 mm[Hg] [facility] Diastolic blood pressure 2023-11-05 18:45:00 70 mm[Hg] [facility] Heart rate 2023-11-05 18:45:00 80 /min [facility] Body temperature 2023-11-05 18:45:00 36.83 Jennifer [facility] Respiratory rate 2023-11-05 18:45:00 17 /min [facility] Oxygen saturation in Arterial blood by Pulse oximetry 2023-11-05 18:45:00 100 /min [facility] Body height 2023-11-04 17:07:00 160 cm [facility] Body weight 2023-11-04 17:07:00 58.968 kg [facility] BMI 2023-11-04 17:07:00 23.03 kg/m2 [facility] Systolic blood pressure 2023-12-15 19:23:00 184 mm[Hg] [facility] Diastolic blood pressure 2023-12-15 19:23:00 88 mm[Hg] [facility] Heart rate 2023-12-15 19:21:00 78 /min [facility] Body temperature 2023-12-15 19:21:00 37.22 Jennifer [facility] Body height 2023-12-15 19:21:00 162.6 cm stated [facility] Body weight 2023-12-15 19:21:00 64.592 kg [facility] BMI 2023-12-15 19:21:00 24.44 kg/m2 [facility] Oxygen saturation in Arterial blood by Pulse oximetry 2023-12-15 19:21:00 99 /min [facility] Respiratory rate 2023-11-05 18:45:00 17 /min [facility] Procedures Procedure Date / Time Performed Performing Clinician Source XR knee 3 views bilateral 2024-05-04 00:00:00 [facility] VENOUS REFLUX DUPLEX BILATERAL - BY VASCULAR LAB 2023-11-20 16:56:15 Rebeca Jarrett [facility] CAROTID DUPLEX BILATERAL - BY VASCULAR LAB 2023-11-20 16:46:14 Rebeca Jarrett [facility] SHUBHAM MULTI LEVEL - BY VASCULAR LAB 2023-11-20 16:39:55 Rebeca Jarrett [facility] COMP. METABOLIC PANEL ([id number]) 2023-11-05 14:06:00 Alexi Owens [facility] CBC WITH DIFF 2023-11-05 14:06:00 Alexi Owens [facility] TROPONIN I 2023-11-05 02:07:00 Emi Cleaning [facility] THYROID STIMULATING HORMONE 2023-11-05 02:07:00 Bairon Martinez [facility] LIPID PANEL ([id number])(TOTAL CHOLESTEROL, TRIGLYCERIDES, HDL) 2023-11-05 02:07:00 Bairon Martinez [facility] MRI brain wo IV contrast 2023-11-05 00:00:00 [facility] Epi c TROPONIN I 2023-11-04 23:58:00 [facility] 2023-11-04 20:13:00 Cristopher [facility] INFLUENZA A/B RSV COVID NAAT 2023-11-04 20:13:00 Cristopher [facility] CT HEAD WO CONTRAST 2023-11-04 18:28:32 Robetr Nicholas [facility] TROPONIN I 2023-11-04 18:11:[address] [facility] COMP. METABOLIC PANEL ([id number]) 2023-11-04 18:11:00 Cristopher [facility] CBC WITH DIFF 2023-11-04 18:11:00 Cristopher [facility] GLYCOSYLATED HEMOGLOBIN (A1C) 2023-11-04 18:11:00 Bairon Martinez [facility] XR CHEST 1 VW 2023-11-04 [facility]:28[facility] RHYTHM STRIP 2023-11-04 17:03:55 Cristopher [facility] PHYSICIAN ORDERS 2023-07-15 18:58:32 Doctor Unas signed, [place] [facility] COMP. METABOLIC PANEL ([id number]) 2023-06-18 14:13:00 Evangelina Patterson [facility] LIPID PANEL ([id number])(TOTAL CHOLESTEROL, TRIGLYCERIDES, HDL) 2023-06-18 14:13:00 Evangelina Patterson [facility] CBC WITH DIFF 2023-06-18 14:13:00 Evangelina Patterson [facility] CONSENT/REFUSAL FOR DIAGNOSIS AND TREATMENT 2023-06-18 13:49:18 Doctor Unassigned, [place] [facility] ASSIGNMENT OF BENEFITS 2023-06-18 13:49:01 Docto r Unassigned, [place] [facility] Plan of Care Planned Activity Planned Date Details Comments Source Encounters Start Date/Time End Date/Time Encounter Type Admission Type Attending Clinicians Care Facility Care Department Encounter ID Source 2024-10-07 00:00:00 2024-10-07 14:46:47 Telephone Janie Stanley Kasandra Alyse [id number] Sherie mclean [facility] 2024-07-15 00:00:00 2024-08-09 15:22:58 Telephone Mariana Lee Arianna Alyse [id number] Sherie mclean [facility] 2024-07-13 00:00:00 2024-07-13 10:00:31 Refill Evangelina Patterson [id number] Sherie mclean [facility] 2024-06-17 13:15:00 2024-06-17 13:52:59 Office Visit Evangelina Patterson [id number] Sherie mclean [facility] 2024-06-17 13:01:50 2024-06-17 13:52:59 Outpatient Elective EVANGELINA PATTERSON M[facility]OUT MHEOUT [id number] MHEOUT 2023-07-15 00:00:00 2024-05-15 02:19:31 Orders Only Doctor Unassigned, [place] Doctor Unassigned, [place] [facility] [id number] [facility] 2024-05-04 11:30:00 2024-05-04 12:03:44 Office Visit Evangelina Patterson [id number] Sherie mclean [facility] 2024-05-04 11:20:30 2024-05-04 12:03:44 Outpatient EVANGELINA PATTERSON MHEOUT MHEOUT [id number] EOUT 2024-02-09 00:00:00 2024-02-09 14:44:30 Refill Evangelina Patterson [id number] [id number] Sherie mclean [facility] 2024-01-08 11:30:00 2024-01-08 12:04:42 Office Visit Evangelina Patterson [id number] [id number] Sherie mclean [facility] 2024-01-08 11:16:48 2024-01-08 12:04:42 Outpatient EVANGELINA PATTERSON EOUT MHEOUT [id number] [facility] 2023-12-16 00:00:00 2023-12-17 14:12:09 Refill Destiney Chery Destiney Alyse [id number] [id number] Sherie [facility] 2023-12-15 14:00:00 2023-12-15 14:52:49 Outpatient R REBECA JARRETT [facility] [id number] [facility] 2023-12-15 14:00:00 2023-12-15 14:52:49 Office Visit Rebeca Jarrett [facility] [id number] [id number] [facility] [facility] 00:00:00 2023-12-15 13:42:21 Telephone Janie Stanley Kasandra [place] 1.2.840.114 350.1.13.70 8.2.7.2.686 [id number] Sherie mclean [facility] 2023-12-08 00:00:00 2023-12-09 11:38:26 Telephone Janie Stanley Kasandra [place] 1.2.840.114 350.1.13.70 8.2.7.2.686 [id number] Sherie mclean [facility] 2023-12-02 00:00:00 2023-12-02 11:56:50 RefEvangelina Waite 1.2.840.114 350.1.13.70 8.2.7.2.686 [id number] Sherie mclean [facility] 2023-11-27 10:15:00 2023-11-27 10:59:16 Office Visit Evangelina Patterson 1.2.840.114 350.1.13.70 8.2.7.2.686 [id number] Sherie mclean [facility] 2023-11-27 10:04:27 2023-11-27 10:59:16 Outpatient EVANGELINA PATTERSON [facility] [id number] [facility]OUT 2023-11-24 00:00:00 2023-11-24 17:21:12 Destiney Varela Jessica [place] 1.2.840.114 350.1.13.70 8.2.7.2.686 [id number] Sherie mclean [facility] 2023-11-20 09:50:13 2023-11-20 23:59:00 [facility] Rebeca Jarrett [facility] 1.2.840.114 350.1.13.10 4.2.7.2.686 [id number] [facility] 2023-11-20 09:48:37 2023-11-20 09:49:00 Hospital Encounter Rebeca Jarrett [facility] 1.2.840.114 350.1.13.10 4.2.7.2.686 [id number] [facility] 2023-11-20 09:45:37 2023-11-20 09:47:00 Outpatient R SAURABH REBECA [facility] [id number] [facility] 2023-11-20 09:45:37 2023-11-20 09:47:00 Hospital Encounter Rebeca Jarrett Renate [facility] 1.2840.114 350.1.13.10 4.2.7.2.686 [id number] [facility] 2023-11-06 00:00:00 2023-11-17 09:30:42 Transition of Care Adri Courtney Kristi L SHEARN [facility]IA [facility] 1.2840.114 350.1.13.10 4.2.7.2.686 [id number] [facility] 2023-11-13 10:45:00 2023-11-13 11:47:40 Outpatient R REBECA JARRETT [facility] [id number] [facility] 2023-11-13 10:45:00 2023-11-13 11:47:40 Office Visit Rebeca Jarrett [facility] [place] 1.2840.114 350.1.13.10 4.2.7.2.686 [id number] [facility] 2023-11-05 00:00:00 2023-11-05 18:07:44 Janie Melendrez Kas[place] 1.2.840.114 350.1.13.70 8.2.7.2.686 [id number] [facility] 2023-11-04 12:08:00 2023-11-05 13:47:00 Outpatient X ALEXYS THAPA STEVEN [facility] [id number] [facility] 2023-11-04 12:08:00 2023-11-05 13:47:00 Emergency Cristopher Mustapha Thapa Alexys [facility] 1.2.840.114 350.1.13.10 4.2.7.2.686 [id number] [facility] 2023-11-04 11:30:00 2023-11-04 11:30:00 Outpatient BLANCA SANCHEZ [facility] [id number] [facility] 2023-10-15 00:00:00 2023-10-15 11:26:50 Destiney Varela Jessica [place] 1.2.840.114 350.1.13.70 8.2.7.2.686 [id number] [facility] 2023-09-24 00:00:00 2023-09-24 17:35:34 Keshia Ferrara Sabrina [place] 1.2.840.114 350.1.13.70 8.2.7.2.686 [id number] [facility] 2023-09-16 00:00:00 2023-09-19 13:32:32 Telephone Janie Stanley Kasandra [place] 1.2.840.114 350.1.13.70 8.2.7.2.686 [id number] [facility] 2023-09-11 00:00:00 2023-09-11 18:14:07 Treatment Evangelina Patterson 1.2.840.114 350.1.13.70 8.2.7.2.686 [id number] Sherie Smith [facility] 2023-08-21 13:26:29 2023-08-21 14:14:00 Outpatient TAMEKAEVANGELINA PADRON IEEPLUIS [facility] [id number] Sherie Smith [facility] 2023-06-18 09:00:00 2023-06-18 09:15:00 Dye House Helper Visit Pob, Adc Lab Main Maria Teresa Bhatia [facility] 1.2.840.114 350.1.13.10 4.2.7.2.686 [id number] [facility] 2023-06-18 09:00:00 2023-06-18 09:00:00 Outpatient Teagan MARIA TERESA BHATIA [facility] [id number] [facility] 2023-06-18 00:00:00 2023-06-18 00:00:00 Orders Only Doctor Unassigned, [place] [facility] 1.2.840.114 350.1.13.10 4.2.7.2.686 [id number] [facility] 2020-08-08 12:25:00 2020-08-08 14:35:00 Emergency X KIM SULTANA [facility] ERT [id number] [facility] 2019-07-30 00:00:00 2019-08-29 00:01:00 Outpatient DAKOTA STEPHENSPonce MOSHE CARRILLO [id number] [facility] 2019-06-30 10:38:00 2019-06-30 10:38:00 Discharged Recurring DAKOTA STEPHENSMOSHE Serra [id number] [facility] 2019-06-01 08:41:00 2019-06-01 08:41:00 Discharged Recurring DAKOTA LEWIS MOSHE CARRILLO [id number] [facility] 2019-03-27 00:56:30 2019-03-27 02:41:00 Emergency X EMBER ATKINSON [facility] ERT [id number] [facility] Results Test Description Test Time Test Comments Results Result Co mments Source [facility] with [id number] 14:19:17* Test Item Value Reference Range Interpretation Comme nts WBC (test code = 6690-2) 7.73 4.30-11.10 RBC (test code = 789-8) 3.91 3.93-5.25 L HGB (test code = 718-7) 12.2 g/dL 11.6-15.0 HCT (test code = 4544-3) 37.1 % 35.7-45.2 MCV (test code = 787-2) 94.9 fL 80.6-95.5 MCH (test code = 785-6) 31.2 pg 25.9-32.8 MCHC (test code = 786-4) 32.9 g/dL 31.6-35.1 RDW-SD (test code = 21247-4) 43.8 fL 39.0-49.9 RDW-CV (test code = 788-0) 12.6 % 12.0-15.5 PLT (test code = 777-3) 139 166-358 L MPV (test code = 56237-6) 9.0 fL 9.5-12.9 L IPF % (test code = 9377283324) 1.0 % 1.3-7.7 L Platelet count measured by fluorescence method. NRBC/100 WBC (test code = 1028690245) 0.0 0.0-10.0 NRBC x10^3 (test code = 1263254574) See_Comment [Automated Jobyala ge] The system which generated this result transmitted reference range: 10*3/?L. The reference range was not used to interpret this result as normal/abnormal. GRAN MAT (NEUT) % (test code = 770-8) 71.5 % IMM GRAN % (test code = 5926330016) 0.40 % LYMPH % (test code = 736-9) 16.3 % MONO % (test code = 5905-5) 9.6 % EOS % (test code = 713-8) 1.8 % BASO % (test code = 706-2) 0.4 % GRAN MAT x10^3(ANC) (test code = 5589269366) 5.53 10*3/uL 1.88-7.09 IMM GRAN x10^3 (test code = 4936627405) 0.03 10*3/uL 0.00-0.06 LYMPH x10^3 (test code = 731-0) 1.26 10*3/uL 1.32-3.29 L MONO x10^3 (test code = 742-7) 0.74 10*3/uL 0.33-0.92 EOS x10^3 (test code = 711-2) 0.14 10*3/uL 0.03-0.39 BASO x10^3 (test code = 704-7) 0.03 10*3/uL 0.01-0.07 Lab Interpretation (test code = 75176-9) [facility] [id number] 18:31:27CT HEAD WO CONTRAST HISTORY: Female 88 years Neuro deficit, acute, stroke suspected COMPARISON: None TECHNIQUE: Routine CT head without contrast FINDINGS: The ventricles and cerebral sulci are prominent commensurate with mildglobal volume loss. The lateral and third ventricles are dilated slightlyout of proportion to the degree of sulcal prominence. No midline shift orpathological extra-axial fluid collection is present. The basal cisternsare unremarkable. No acute intracranial hemorrhage or mass effect is present. The storm-whitematter differentiation is preserved. A remote lacunar infarct isnoted inthe right caudate head extending into the putamen. No additionalsignificant parenchymal attenuation abnormality is present. The calvarium and skull base are unremarkable. The mastoid air cells andvisualized paranasal air sinuses are clear.[facility] 1 [id number] 17:38:53 PROCEDURE: XR CHEST 1 11/04/2023 12:19 PM CLINICAL INDICATION: chest pain COMPARISON: None FINDINGS: The lungs are mildly hypoventilated. Right apical streaky opacities arenoted with elevation of the right hilum and right-sided deviation oftrachea suggestive of fibrotic bands. A small patchy left basilar linearopacity could represent atelectasis. A right-sided retrocardiac opacity,could represent, consolidation or pleural plaque. There is no pleuraleffusion. ?No pneumothorax. The cardiac size is normal. No aggressive osseous lesion.[facility] [id number] 18:58:32Ordered by an unspecified provider.[facility] Lipid Panel (50980)(Total Cholesterol, Triglycerides, HDL)2023-06-18 15:28:43* Test Item Value Reference Range Interpretation Comme nts CHOL (test code = 3725579287) 197 mg/dL 120-200 HDL (test code = 4489205824) 57 mg/dL >=50 HDLC RATIO (test code = 8240797135) 3.5 <=4.5 TRIG (test code = 2092846172) 48 mg/dL 30-170 LDL CHOL (test code = 15638-6) 130 mg/dL <=160 VLDL (test code = 5421858652) 10 mg/dL 5-60 Lab Interpretation (test cod e = 76955-1) Normal [facility] (53415)2023-06-18 15:28:28* Test Item Value Reference Range Interpretation Comme nts NA (test code = 6993300442) 138 mmol/L 135-145 K (test code = 2268918541) 4.4 mmol/L 3.5-5.0 CL (test code = 6872672901) 101 mmol/L 98-108 CO2 TOTAL (test code = 5746236116) 33 mmol/L 23-31 H AGAP (test code = 8797258397) 4 2-16 BUN (test code = 7958878045) 22 mg/dL 7-23 GLUCOSE (test code = 2428585897) 94 mg/dL 70-110 CREATININE (test code = 2160-0) 0.76 mg/dL 0.50-1.04 TOTAL BILI (test code = 8904090292) 0.5 mg/dL 0.1-1.1 CALCIUM (test code = 8168236082) 9.4 mg/dL 8.6-10.6 T PROTEIN (test code = 8846626176) 6.2 g/dL 6.3-8.2 L ALBUMIN (test code = 8030620034) 3.0 g/dL 3.5-5.0 L ALK PHOS (test code = 5458881762) 100 U/L 34-122 ALTv (test code = 1742-6) 15 U/L 5-35 AST(SGOT) (test code = 8449028722) 31 U/L 13-40 eGFR (test code = 04637-5) 76.4 mL/min/1.73m2 CKD-EPI eGFR (2020). Assuming creatinine has been stable day-to-day for at least three months, the eGFR indicates Category G2 (60 - 89 mL/min/1.73 m2) Lab Interpretation (test code = 80776-9) Abnormal [facility] with Gqgn6693-00-81 14:47:22* Test Item Value Reference Range Interpretation Comme nts WBC (test code = 6690-2) 5.06 4.30-11.10 RBC (test code = 789-8) 3.73 3.93-5.25 L HGB (test code = 718-7) 11.8 g/dL 11.6-15.0 HCT (test code = 4544-3) 36.6 % 35.7-45.2 MCV (test code = 787-2) 98.1 fL 80.6-95.5 H MCH (test code = 785-6) 31.6 pg 25.9-32.8 MCHC (test code = 786-4) 32.2 g/dL 31.6-35.1 RDW-SD (test code = 79088-1) 43.2 fL 39.0-49.9 RDW-CV (test code = 788-0) 12.1 % 12.0-15.5 PLT (test code = 777-3) 161 166-358 L MPV (test code = 60066-4) 8.8 fL 9.5-12.9 L NRBC/100 WBC (test code = 0237600741) 0.0 0.0-10.0 NRBC x10^3 (test code = 8493375749) See_Comment [Automated messa ge] The system which generated this result transmitted reference range: 10*3/?L. The reference range was not used to interpret this result as normal/abnormal. GRAN MAT (NEUT) % (test code = 770-8) 60.4 % IMM GRAN % (test code = 1614671672) 0.80 % LYMPH % (test code = 736-9) 20.4 % MONO % (test code = 5905-5) 10.1 % EOS % (test code = 713-8) 7.7 % BASO % (test code = 706-2) 0.6 % GRAN MAT x10^3(ANC) (test code = 8745165860) 3.06 10*3/uL 1.88-7.09 IMM GRAN x10^3 (test code = 2765120342) 0.04 10*3/uL 0.00-0.06 LYMPH x10^3 (test code = 731-0) 1.03 10*3/uL 1.32-3.29 L MONO x10^3 (test code = 742-7) 0.51 10*3/uL 0.33-0.92 EOS x10^3 (test code = 711-2) 0.39 10*3/uL 0.03-0.39 BASO x10^3 (test code = 704-7) 0.03 10*3/uL 0.01-0.07 Lab Interpretation (test code = 65771-4) Abnormal [facility] [id number] 09:43:00* Test Item Value Reference Range Interpretation Comme nts CULTURIN (test code = CULTURIN) CULTURIN (test code = PORHFQXG1799) PDG 2022-04-06 1506 >100,000 CFU/ML PDG 2022-04-06 1507 OXIDASE NEGATIVE GRAM NEGATIVE BACILLI ISOLATED PRELIMINARY REPORT PDG 2022-04-06 1508 ID AND/OR SENSITIVITY TO FOLLOW PRELIMINARY REPORT MG Mammo Digital Screening Wznhujffc2049-91-23 08:57:13Patient: QASIM BATISTA Date/Time05/18/2018 14:17 CSTReason for ExamMAMMO SCREENI NGReportCAD MAMMOGRAM: With tomocenthesisCOMPARISON: Outside films [facility] 2011CLINICAL INFORMATION: ScreeningRoutine mediolateral and craniocaudal films of [...] ASigned (Electronic Signature): 05/19/2018 8:57 amLEXISCAN KAYLEEN. REST/[id number] 14:31:[address] [address]LWSHLLYHOP IMAGING REPORTPatient Name: QASIM BATISTADate of Service: [id number]: 81 Sex: F Order #: [id number] Room: OPEDOB: 1935 X-Ray Number: [id number] Record Number: [id number] Hospital Number: [id number] Physician: MARIA TERESA CHICAS - Ordering Physician: MARIA TERESA CHICAS -NUCLEAR CARDIAC EVALUATION WITH REST AND STRESS:CLINICAL HISTORY: Chronic dyspnea, sleep apnea and hypertensionTECHNIQUE: This patientwas administered 10.2 millicuries of kehjvqpeai30p labeled Myoview intravenously for the resting portion of thisexamination. The stress portion of examination was monitored by . Stress was achieved utilizing intravenous Lexiscan. An aoikdapvvd14.2 mCi of the tracer was injected intravenously for the stress portionof examination.FINDINGS: There is a normal distribution of tracer demonstrated on theresting sequence.The stress images are also normal with no evidence of a stress-induceddefect.Calculated left ventricular ejection fraction is 67%.Dynamic wall motion images are normal.Impre ssion: Normal examinationElectronically Signed By: Nelson Burgess M.D., 10/03/2016 2:29 PMLegally authenticated by MARCELL Flower 2016-10-03 14:29:38 Consult Notes Date/Time Note Provider Source 2023-11-05 11:08:44 Associated Order(s): CONSULT ADULT PHYSICAL THERAPY Patient agreeable to working with physical therapy. Patient met sitting at edge of bed with OT . Daughter present in room Recommend nursing staff utilize rolling walker with contact guarding to safely assist patient with mobility out of the bed or chair. PHYSICAL THERAPY EVALUATION Consult received, chart reviewed and evaluation complete this date. Patient is referred to PT for evaluation and treatment. Patient is a 88 year old female who presents to hospital for Chest pain, unspecified type [R07.9] . Patient with PMH of CVA with left sided deficits. Presents to [facility] with chest pain during vascular surgery appointment. Discharge Recommendations: Therapy Needs and Potential: Patient would benefit from continued physical therapy services to address: decline in bed mobility decline in transfers decline in gait and/or balance decreased strength decreased endurance Patient demonstrates good potential to improve and meet therapy goals with further physical therapy services. Patient appears motivated to improve their functional mobility and return to their previous level of function. Patient demonstrates ability to tolerate atleast 30-60 minutes of physical therapy with active participation. Challenges to Home Transition: increased risk of falls Requires supervision and assistance with functional mobility. Equipment recommendations: Patient has or access to necessary equipment Will benefit form continued skilled PT services In home health or outpatient setting to improve with functional mobility. Current Functional Status and/or Treatment: AM-PAC 6 Clicks (Raw Score 0=Dependent, 24=Independent; Low function Raw Score 0= Dependent, 32=Independent): Raw Score - Basic Mobility : 22 T-Scale Score - Basic Mobility : 47.4 Bed Mobility: Sit to supine: Supervision Supine to sit: Supervision Close contact guarding during supine to sit Dizziness Yes Transfers: Sit to stand: Supervision using rolling Walker. Stand to sit: Supervision using rolling Walker. Static/dynamic standing balance: Fair Verbal cueing provided for correct hand placement and correct use of AD Minimal verbal cues for safety and for close guarding. After several mins in standing improves with posture Dizziness No Ambulation: Assisted patient with ambulation as follows: 40 feet using rolling Walker. and Minimal Assistance. Patient presenting with Step-through gait pattern. Minimal manual assistance as contact guarding initially Improves with independence after several feet. Upon ambulation patient's transportation for imaging arrived. Dizziness No Therapeutic exercise: patient educated in Adaptive equipment , Fall prevention, General strengthening, and Scar management. and patient/caregiver verbalizes understanding of instructions. Functional Outcome Measures: (Values within the past 12 hours) Tinetti Gait Score- # / 12 Initiation of gait: No hesitancy Step length: On both sides, swing foot passes stance foot Foot clearance: Both feet completely clear floor Step Symmetry: Step lengths equal Step continuity: Steps appear continuous Path: Mild/moderate deviation or uses AD Trunk: Marked sway or uses AD Walking: Heels apart Tinetti Gait Score: 8 Tinetti Gait Score Interpretation: >= 7 - Low risk for falls TINETTI BALANCE SCORE- # / 16 Sitting balance: Steady, safe Arises: Able, uses arms to help Attempts to Rise: Able to rise, 1 attempt Immediate standing balance (first 5 sec): Steady but uses walker or other support Standing Balance: Steady but MATIAS > 4 inches or uses AD/other support Nudged 3 times *: Staggers, grabs, catches self Eyes closed*: Unsteady Turning 360 degrees: Either discontinuous or unsteady Sitting down: Uses arms or motion not smooth Tinetti Balance Score: 9 Tinetti Balance Interpretation: >= 9 - Low risk for falls After session, patient up in chair. Call button provided. PLAN OF CARE: While in the hospital, PT will follow patient at least 1 times per week,once or twice a day, per patient's tolerance and needs. See below for complete details. Admit Date: 11/04/2023 Hospital Diagnosis:Chest pain, unspecified type [R07.9] PT Diagnosis: Difficulty walking, Weakness, and Abnormality of gait and balance Weight Bearing Precaution: NA General Precautions: PPE used:Gloves, General, Fall, Bracing/Cast present or required:N/A PMH: History reviewed. No pertinent past medical history. PSH: History reviewed. No pertinent surgical history. Prior Living Situation: lives at the [facility] DME: shower chair, rollator Prior level of Mobility: house hold ambulation with rollator, daughter provides transportation Suspected ischemic or hemorraghic stroke:No Subjective: daughter states patient ambulates independently, requires assistance with transpiration, lately requires more assistance to ambulate longer distances. Patient/Family Goals: to demonstrate ability to perform bed mobility, transfers and gain independently. Patient/Family verbalizes understanding of condition: yes PAIN: denies pain before and after session COMMUNICATION Primary Language: Kazakh Able to Verbalize needs: Yes Vision:good; no issues reported Hearing:good; no issues reported ORIENTATION/COGNITION: Oriented to: person, place, date/time, and situation Awake: Yes Alert: Yes Dizzy: No Follows Commands: Yes 1-Step Yes Multi-Step Yes Inconsistent: No NEUROLOGICAL Light Touch: within functional limits bilateral LE, Heel to parks: no evident deficit. Tone: no evident deficit. BALANCE: Sitting: Static: Fair Dynamic: Fair Standing: Static: Fair Dynamic: Fair RANGE OF MOTION: within functional limits bilateral LE, STRENGTH: 4/5 (Good), bilateral LE ENDURANCE: Fair, Room air SKIN INTEGRITY: intact, PROBLEM LIST: Decline in bed mobility, Decline in gait, Decline in transfers, Decreased strength, Decreased endurance, and Decreased balance ASSESSMENT: Patient is a 88 year old female seen secondary to the above listed diagnosis. Patient would benefit from continued PT to address the above listed deficits to maximize independence and safety with functional mobility. Rehabilitation Potential: fair Goals: The following goals are to maximize independence and safety with functional mobility to eventually return to prior living situation and prior functional status. Upon discharge, patient and/or family will demonstrate the followin. Sit to supine: Independent Supine to sit: Independent 2. Sit to stand: Independent using rolling Walker. Stand to sit: Independent using rolling Walker. 3. Independent with ambulation, Feet: 150 using least assistive device. Treatment Plan: Gait training, Therapeutic exercise, Transfer training, Balance training, Bed mobility training, Neuromuscular Re-Education, and Functional Motor Training PATIENT EDUCATION: Patient provided with preferred teaching of verbal information on role of PT, plan of care, safety with mobiltiy. Shows readiness to learn. Verbal instruction teaching provided. Individual is able to read and verbalizes understanding of teaching provided. Total Time Tx Codes in Minutes: 10 min Total Treatment Time in Minutes: 15 min Walter Green PT License #: [id number] A physical therapy evaluation of moderate complexity was completed based on meeting the criteria below: A history of present problem with at least 1-2 personal factors (includes environmental factors) and/or comorbidities that impact the plan of care An examination of body systems using standardized tests and measures in addressing at least 3 or more elements from any of the following: body structures and functions, activity limitations and/or participation restrictions An evolving clinical presentation with changing characteristics Walter Green PT [facility] Health Notes Date/Time Note Provider Source Referral ID Status Reason Start Date Expiration Date Visits Requested Visits Authorized [id number] Pending Review Consult and Treat 10/07/2024 10/02/2025 [facility] 14:46[facility]54 [facility]gd[facility]ha3923-06-56 14:46:54Upcoming Encounters Scheduled Referrals Name Type Priority Associated Diagnoses Order Schedule Ambulatory referral to Orthopaedic Surgery Outpatient Referral Routine Chronic pain of both knees Expected: 10/07/2024 (Approximate), Expires: 10/07/2025 Health Maintenance Due Date Last Done Comments Bone Density Scan 1935 Medicare Annual Wellness (AWV) 1935 DTaP/Tdap/Td Vaccines (1 - Tdap) 1956 Pneumococcal Vaccine: 50+ Years (1 of 1 - PCV) 1987 Zoster Vaccines (1 of 2) 1987 Respiratory Syncytial Virus (RSV) Adult Series (1 - 1-dose 75+ series) 2012 Influenza Vaccine (#1) 2024 Lipid Panel 11/03/2028 11/04/2023, 06/18/2023 HIB Vaccines Aged Out No longer eligi ble based on patient's age to complete this topic HPV Vaccines Aged Out No longer eligi ble based on patient's age to complete this topic Hepatitis A Vaccines Aged Out No long er eligible based on patient's age to complete this topic Hepatitis B Vaccines Aged Out No long er eligible based on patient's age to complete this topic IPV Vaccines Aged Out No longer eligi ble based on patient's age to complete this topic Meningococcal Vaccine Aged Out No honey micheal eligible based on patient's age to complete this topic Rotavirus Vaccines Aged Out No longer eligible based on patient's age to complete this topic [facility] StationIusdjel9936-04-31 14:46:54 Diagnosis Chronic pain of both knees - [facility] StationDcuuykd1407-53-39 14:46:54 [facility] StationDzwmtey8740-67-83 14:17:49 Patients daughter called and stated that she had spoken to you before about cortisol shots for patients knee pain. Daughter stated that they believe that is the next step they would like to proceed with. They would like to know what has to be done to start the process. [facility] StationVwdtmht7959-58-99 15:23:08 [facility] StationWhelakv8802-53-36 15:23:08Upcoming Encounters Health Maintenance Due Date Last Done Comments Bone Density Scan 1935 Medicare Annual Wellness (AWV) 1935 DTaP/Tdap/Td Vaccines (1 - Tdap) 1956 Pneumococcal Vaccine: 50+ Years (1 of 1 - PCV) 1987 Zoster Vaccines (1 of 2) 1987 Respiratory Syncytial Virus (RSV) Adult Series (1 - 1-dose 75+ series) 2012 Influenza Vaccine (Season Ended) 2024 Lipid Panel 11/03/2028 11/04/2023, 06/18/2023 HIB Vaccines Aged Out No longer eligi ble based on patient's age to complete this topic HPV Vaccines Aged Out No longer eligi ble based on patient's age to complete this topic Hepatitis A Vaccines Aged Out No long er eligible based on patient's age to complete this topic Hepatitis B Vaccines Aged Out No long er eligible based on patient's age to complete this topic IPV Vaccines Aged Out No longer eligi ble based on patient's age to complete this topic Meningococcal Vaccine Aged Out No honey micheal eligible based on patient's age to complete this topic Rotavirus Vaccines Aged Out No longer eligible based on patient's age to complete this topic [facility] StationEnmojnm9632-89-86 15:23:08 [facility] StationWxeecth5924-40-76 11:18:22 came into the office and picked the letter up. Mariana Lee [facility]2025-04-24 14:15:43 Patients daughter called in again requesting the handicap placards. T [facility] StationDzfzlai2934-74-76 11:27:32 Patients daughter called in and requested a letter for a handicap placard for both herself (Gabriel) and her sister (Melissa). She also would like to know if the duration could be extended to longer than 6 months. [facility]2025-04-15 10:00:42* [facility] StationQtdbvcc3309-08-11 10:00:42 [place] [id number] 10:00:42Upcoming Encounters Health Maintenance Due Date Last Done Comments Bone Density Scan 1937 Medicare Annual Wellness (AWV) 1937 DTaP/Tdap/Td Vaccines (1 - Tdap) 1956 Pneumococcal Vaccine: 50+ Years (1 of 1 - PCV) 1987 Zoster Vaccines (1 of 2) 1987 Respiratory Syncytial Virus (RSV) Adult Series (1 - 1-dose 75+ series) 2012 Influenza Vaccine (Season Ended) 2024 Lipid Panel 11/03/2028 11/04/2023, 06/18/2023 HIB Vaccines Aged Out No longer eligi ble based on patient's age to complete this topic HPV Vaccines Aged Out No longer eligi ble based on patient's age to complete this topic Hepatitis A Vaccines Aged Out No long er eligible based on patient's age to complete this topic Hepatitis B Vaccines Aged Out No long er eligible based on patient's age to complete this topic IPV Vaccines Aged Out No longer eligi ble based on patient's age to complete this topic Meningococcal Vaccine Aged Out No honey micheal eligible based on patient's age to complete this topic Rotavirus Vaccines Aged Out No longer eligible based on patient's age to complete this topic [facility] StationEjzvmpa1586-65-23 10:00:42 [facility] StationTamfcqx1760-72-93 17:24:33* [facility] StationLwirhwz8376-80-23 17:24:33 [facility] StationKojrdzk7581-74-80 17:24:33* Evangelina Patterson MD - 06/17/2024 1:15 PM CDT History of Present Illness Cerebrovascular Accident Memory Loss Plain films mild knee arthritis. Tolerates the Namenda and Aricept well. Has gained some weight. If knee pain worsens can refer to orthopedics, offered her a referral but she declined. Allergies as of 06/17/2024 - Reviewed 06/17/2024 Allergen Reaction Noted Penicillin g Anaphylaxis and Unknown 03/26/2019 Sulfa antibiotics Other and Unknown 03/26/2019 has a current medication list which includes the following prescription(s): acetaminophen extra srength, clopidogrel, donepezil, levothyroxine, losartan, and memantine. Vitals:06/17/24 1326 BP: (!) 170/81 Pulse: 74 Resp: 16 Temp: 36.3 ?C (97.4 ?F) SpO2: 99% Neurological Exam Mental Status Awake and alert. Speech is normal. 5/6 pictures. Cranial NervesCN II: Visual acuity is normal. CN III, IV, : Extraocular movements intact bilaterally. Pupils equal round and reactive to light bilaterally. CN VII: Full and symmetric facial movement. CN XII: Tongue midline without atrophy or fasciculations. MotorStrength is 5/5 throughout all four extremities. SensoryLight touch is normal in upper and lower extremities. Temperature is normal in upper and lower extremities. Vibration is normal in upper and lower extremities. ReflexesDeep tendon reflexes: Symmetric. Gait Ambulates with a rolling walker. No results found for this or any previous visit. No MRI head results found for the past 12 months Assessment & PlanDiagnoses and all orders for this visit: Cerebrovascular accident (CVA) due to thrombosis of middle cerebral artery, unspecified blood vessel laterality (HCC) Alzheimer's disease, unspecified (HCC) Stable, continue present medications. [facility]Cvyxfoa2221-69-44 17:24:33Upcoming Encounters Health Maintenance Due Date Last Done Comments Bone Density Scan 1935 Medicare Annual Wellness (AWV) 1937 DTaP/Tdap/Td Vaccines (1 - Tdap) 1956 Pneumococcal Vaccine: 50+ Years (1 of 1 - PCV) 1987 Zoster Vaccines (1 of 2) 1987 Respiratory Syncytial Virus (RSV) or >=60 (1 - 1-dose 75+ series) 2012 Influenza Vaccine (#1) 2023 Lipid Panel 11/03/2028 11/04/2023, 06/18/2023 HIB Vaccines Aged Out No longer eligi ble based on patient's age to complete this topic HPV Vaccines Aged Out No longer eligi ble based on patient's age to complete this topic Hepatitis A Vaccines Aged Out No long er eligible based on patient's age to complete this topic Hepatitis B Vaccines Aged Out No long er eligible based on patient's age to complete this topic IPV Vaccines Aged Out No longer eligi ble based on patient's age to complete this topic Meningococcal Vaccine Aged Out No honey micheal eligible based on patient's age to complete this topic Rotavirus Vaccines Aged Out No longer eligible based on patient's age to complete this topic [facility] StationUxozegz7714-70-37 17:24:33 Diagnosis Cerebrovascular accident (CV A) due to thrombosis of middle cerebral artery, unspecified blood vessel laterality (HCC) - Primary Alzheimer's disease, unspeci fied (HCC) [facility] StationTbgnsmy6745-41-08 17:24:33 [facility] StationVtlxgkb2043-86-93 17:24:33* [facility] StationBkhmyqj5683-13-01 17:24:33 [facility] StationKudfxma4608-10-24 17:24:33* Evangelina Patterson MD - 06/17/2024 1:15 PM CDT History of Present Illness Cerebrovascular Accident Memory Loss Plain films mild knee arthritis. Tolerates the Namenda and Aricept well. Has gained some weight. If knee pain worsens can refer to orthopedics, offered her a referral but she declined. Allergies as of 06/17/2024 - Reviewed 06/17/2024 Allergen Reaction Noted Penicillin g Anaphylaxis and Unknown 03/26/2019 Sulfa antibiotics Other and Unknown 03/26/2019 has a current medication list which includes the following prescription(s): acetaminophen extra srength, clopidogrel, donepezil, levothyroxine, losartan, and memantine. Vitals:06/17/24 1326 BP: (!) 170/81 Pulse: 74 Resp: 16 Temp: 36.3 ?C (97.4 ?F) SpO2: 99% Neurological Exam Mental Status Awake and alert. Speech is normal. 5/6 pictures. Cranial NervesCN II: Visual acuity is normal. CN III, IV, : Extraocular movements intact bilaterally. Pupils equal round and reactive to light bilaterally. CN VII: Full and symmetric facial movement. CN XII: Tongue midline without atrophy or fasciculations. MotorStrength is 5/5 throughout all four extremities. SensoryLight touch is normal in upper and lower extremities. Temperature is normal in upper and lower extremities. Vibration is normal in upper and lower extremities. ReflexesDeep tendon reflexes: Symmetric. Gait Ambulates with a rolling walker. No results found for this or any previous visit. No MRI head results found for the past 12 months Assessment & PlanDiagnoses and all orders for this visit: Cerebrovascular accident (CVA) due to thrombosis of middle cerebral artery, unspecified blood vessel laterality (HCC) Alzheimer's disease, unspecified (HCC) Stable, continue present medications. [facility]2025-03-20 17:24:33Upcoming Encounters Health Maintenance Due Date Last Done Comments Bone Density Scan 1937 Medicare Annual Wellness (AWV) 1937 DTaP/Tdap/Td Vaccines (1 - Tdap) 1956 Pneumococcal Vaccine: 50+ Years (1 of 1 - PCV) 1987 Zoster Vaccines (1 of 2) 1987 Respiratory Syncytial Virus (RSV) or >=60 (1 - 1-dose 75+ series) 2012 Influenza Vaccine (#1) 2023 Lipid Panel 11/03/2028 11/04/2023, 06/18/2023 HIB Vaccines Aged Out No longer eligi ble based on patient's age to complete this topic HPV Vaccines Aged Out No longer eligi ble based on patient's age to complete this topic Hepatitis A Vaccines Aged Out No long er eligible based on patient's age to complete this topic Hepatitis B Vaccines Aged Out No long er eligible based on patient's age to complete this topic IPV Vaccines Aged Out No longer eligi ble based on patient's age to complete this topic Meningococcal Vaccine Aged Out No honey micheal eligible based on patient's age to complete this topic Rotavirus Vaccines Aged Out No longer eligible based on patient's age to complete this topic [facility] StationZywrvng2887-47-83 17:24:33 Diagnosis Cerebrovascular accident (CV A) due to thrombosis of middle cerebral artery, unspecified blood vessel laterality (HCC) - Primary Alzheimer's disease, unspeci fied (HCC) [facility] StationDbaprfc0395-35-53 17:24:33 [facility] StationSldcefh6626-55-32 13:08:59* [facility] StationZzccanj1470-51-84 13:08:59 [facility] StationJqjojrt0473-82-23 13:08:59* Evangelina Patterson MD - 05/04/2024 11:30 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 More short term memory loss, forgets names. On Aricept 10 mg, thinks prior nausea with Namenda although that would be an unusual side effect of the Namenda, will rechallenge, check plain film of the knees, consider referral to orthopedics for the knee pain depending on the x-ray results Allergies as of 05/04/2024 - Reviewed 05/04/2024 Allergen Reaction Noted Penicillin g Anaphylaxis and Unknown 03/26/2019 Sulfa antibiotics Other and Unknown 03/26/2019 has a current medication list which includes the following prescription(s): acetaminophen extra srength, clopidogrel, donepezil, levothyroxine, losartan, and memantine. Answers submitted by the patient for this visit: Review of Systems (Submitted on 05/04/2024) Environmental allergies: Yes Vitals:05/04/24 1133 BP: 155/78 Pulse: 75 Resp: 16 Temp: 36.5 ?C (97.7 ?F) SpO2: 98% Neurological Exam Mental Status Awake and alert. Speech is normal. Not year Knows month with assist.. Cranial NervesCN II: Visual acuity is normal. CN III, IV, : Extraocular movements intact bilaterally. Pupils equal round and reactive to light bilaterally. CN VII: Full and symmetric facial movement. CN XII: Tongue midline without atrophy or fasciculations. MotorStrength is 5/5 throughout all four extremities. SensoryLight touch is normal in upper and lower extremities. Temperature is normal in upper and lower extremities. Vibration is normal in upper and lower extremities. ReflexesDeep tendon reflexes: Symmetric. Gait Ambulates with a rolling walker. No results found for this or any previous visit. No MRI head results found for the past 12 months Assessment & PlanDiagnoses and all orders for this visit: Cerebrovascular accident (CVA) due to thrombosis of middle cerebral artery, unspecified blood vessel laterality (HCC) - XR knee 3 views bilateral; Future Dementia in other diseases classified elsewhere, unspecified severity, without behavioral disturbance, psychotic disturbance, mood disturbance, and anxiety (HCC) - XR knee 3 views bilateral; Future Chronic pain of both knees - XR knee 3 views bilateral; Future Other orders - memantine (Namenda) 5 MG tablet; Take 1 tablet by mouth in the morning and 1 tablet in the evening. Plain film of the knees, continue Aricept, add Namenda 5 mg twice daily. Risks, benefits, side effects reviewed with patient. Time: 35 minutes I am the continuing focal point for needed health care services and medicalcare services that are part of ongoing care related to this patient's single, serious condition or complex condition. [facility]2025-02-04 13:08:59Upcoming Encounters Scheduled Orders Name Type Priority Associated Diagnoses Orde r Schedule XR knee 3 views bilateral Imaging Routine Cerebrovascular accident (CVA) due to thrombosis of middle cerebral artery, unspecified blood vessel laterality (HCC) Dementia in other diseases classified elsewhere, unspecified severity, without behavioral disturbance, psychotic disturbance, mood disturbance, and anxiety (HCC) Chronic pain of both knees Expected: 05/04/2024, Expires: 05/04/2025 Health Maintenance Due Date Last Done Comments Bone Density Scan 1935 Medicare Annual Wellness (AWV) 1935 Annual Physical 1940 DTaP/Tdap/Td Vaccines (1 - Tdap) 1956 Zoster Vaccines (1 of 2) 1987 Pneumococcal Vaccine: 65+ Years (1 of 1 - PCV) 2002 Respiratory Syncytial Virus (RSV) or >=60 (1 - 1-dose 75+ series) 2012 Influenza Vaccine (#1) 2023 Lipid Panel 11/03/2028 11/04/2023, 06/18/2023 HIB Vaccines Aged Out No longer eligi ble based on patient's age to complete this topic HPV Vaccines Aged Out No longer eligi ble based on patient's age to complete this topic Hepatitis A Vaccines Aged Out No long er eligible based on patient's age to complete this topic Hepatitis B Vaccines Aged Out No long er eligible based on patient's age to complete this topic IPV Vaccines Aged Out No longer eligi ble based on patient's age to complete this topic Meningococcal Vaccine Aged Out No honey micheal eligible based on patient's age to complete this topic Rotavirus Vaccines Aged Out No longer eligible based on patient's age to complete this topic [facility] StationDhcqcke1574-10-58 13:08:59 Diagnosis Cerebrovascular accident (CV A) due to thrombosis of middle cerebral artery, unspecified blood vessel laterality (HCC) - Primary Dementia in other diseases c lassified elsewhere, unspecified severity, without behavioral disturbance, psychotic disturbance, mood disturbance, and anxiety (HCC) Chronic pain of both knees [facility] StationCbzwjsi2967-26-52 13:08:59 [place] [address]-02-04 13:08:59* [facility] StationAzghpsc9101-11-77 13:08:59 [place] [address]-02-04 13:08:59* Evangelina Patterson MD - 05/04/2024 11:30 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 More short term memory loss, forgets names. On Aricept 10 mg, thinks prior nausea with Namenda although that would be an unusual side effect of the Namenda, will rechallenge, check plain film of the knees, consider referral to orthopedics for the knee pain depending on the x-ray results Allergies as of 05/04/2024 - Reviewed 05/04/2024 Allergen Reaction Noted Penicillin g Anaphylaxis and Unknown 03/26/2019 Sulfa antibiotics Other and Unknown 03/26/2019 has a current medication list which includes the following prescription(s): acetaminophen extra srength, clopidogrel, donepezil, levothyroxine, losartan, and memantine. Answers submitted by the patient for this visit: Review of Systems (Submitted on 05/04/2024) Environmental allergies: Yes Vitals:05/04/24 1133 BP: 155/78 Pulse: 75 Resp: 16 Temp: 36.5 ?C (97.7 ?F) SpO2: 98% Neurological Exam Mental Status Awake and alert. Speech is normal. Not year Knows month with assist.. Cranial NervesCN II: Visual acuity is normal. CN III, IV, : Extraocular movements intact bilaterally. Pupils equal round and reactive to light bilaterally. CN VII: Full and symmetric facial movement. CN XII: Tongue midline without atrophy or fasciculations. MotorStrength is 5/5 throughout all four extremities. SensoryLight touch is normal in upper and lower extremities. Temperature is normal in upper and lower extremities. Vibration is normal in upper and lower extremities. ReflexesDeep tendon reflexes: Symmetric. Gait Ambulates with a rolling walker. No results found for this or any previous visit. No MRI head results found for the past 12 months Assessment & PlanDiagnoses and all orders for this visit: Cerebrovascular accident (CVA) due to thrombosis of middle cerebral artery, unspecified blood vessel laterality (HCC) - XR knee 3 views bilateral; Future Dementia in other diseases classified elsewhere, unspecified severity, without behavioral disturbance, psychotic disturbance, mood disturbance, and anxiety (HCC) - XR knee 3 views bilateral; Future Chronic pain of both knees - XR knee 3 views bilateral; Future Other orders - memantine (Namenda) 5 MG tablet; Take 1 tablet by mouth in the morning and 1 tablet in the evening. Plain film of the knees, continue Aricept, add Namenda 5 mg twice daily. Risks, benefits, side effects reviewed with patient. Time: 35 minutes I am the continuing focal point for needed health care services and medicalcare services that are part of ongoing care related to this patient's single, serious condition or complex condition. [facility]2025-02-04 13:08:59Upcoming Encounters Scheduled Orders Name Type Priority Associated Diagnoses Orde r Schedule XR knee 3 views bilateral Imaging Routine Cerebrovascular accident (CVA) due to thrombosis of middle cerebral artery, unspecified blood vessel laterality (HCC) Dementia in other diseases classified elsewhere, unspecified severity, without behavioral disturbance, psychotic disturbance, mood disturbance, and anxiety (HCC) Chronic pain of both knees Expected: 05/04/2024, Expires: 05/04/2025 Health Maintenance Due Date Last Done Comments Bone Density Scan 1935 Medicare Annual Wellness (AWV) 1935 Annual Physical 1940 DTaP/Tdap/Td Vaccines (1 - Tdap) 1956 Zoster Vaccines (1 of 2) 1987 Pneumococcal Vaccine: 65+ Years (1 of 1 - PCV) 2002 Respiratory Syncytial Virus (RSV) or >=60 (1 - 1-dose 75+ series) 2012 Influenza Vaccine (#1) 2023 Lipid Panel 11/03/2028 11/04/2023, 06/18/2023 HIB Vaccines Aged Out No longer eligi ble based on patient's age to complete this topic HPV Vaccines Aged Out No longer eligi ble based on patient's age to complete this topic Hepatitis A Vaccines Aged Out No long er eligible based on patient's age to complete this topic Hepatitis B Vaccines Aged Out No long er eligible based on patient's age to complete this topic IPV Vaccines Aged Out No longer eligi ble based on patient's age to complete this topic Meningococcal Vaccine Aged Out No honey micheal eligible based on patient's age to complete this topic Rotavirus Vaccines Aged Out No longer eligible based on patient's age to complete this topic [facility] StationRwzwdkf3303-57-61 13:08:59 Diagnosis Cerebrovascular accident (CV A) due to thrombosis of middle cerebral artery, unspecified blood vessel laterality (HCC) - Primary Dementia in other diseases c lassified elsewhere, unspecified severity, without behavioral disturbance, psychotic disturbance, mood disturbance, and anxiety (HCC) Chronic pain of both knees [facility] StationGgyyxav3114-77-31 13:08:59 [facility]anoNfmbylq4518-41-15 14:44:40* [facility]anoMuvwiwk5829-20-41 14:44:40 [facility] StationDzjfwjj0767-33-03 14:44:40Upcoming Encounters Health Maintenance Due Date Last Done Comments Bone Density Scan 1935 Medicare Annual Wellness (AWV) 1935 Annual Physical 1940 DTaP/Tdap/Td Vaccines (1 - Tdap) 1956 Zoster Vaccines (1 of 2) 1987 Respiratory Syncytial Virus (RSV) or >=60 (1 - 1-dose 60+ series) 1997 Pneumococcal Vaccine: 65+ Years (1 of 1 - PCV) 2002 Influenza Vaccine (#1) 2023 Lipid Panel 11/03/2028 11/04/2023, 06/18/2023 HIB Vaccines Aged Out No longer eligi ble based on patient's age to complete this topic HPV Vaccines Aged Out No longer eligi ble based on patient's age to complete this topic Hepatitis A Vaccines Aged Out No long er eligible based on patient's age to complete this topic Hepatitis B Vaccines Aged Out No long er eligible based on patient's age to complete this topic IPV Vaccines Aged Out No longer eligi ble based on patient's age to complete this topic Meningococcal Vaccine Aged Out No honey micheal eligible based on patient's age to complete this topic Rotavirus Vaccines Aged Out No longer eligible based on patient's age to complete this topic [facility] StationGtnfprw8480-09-50 14:44:40 [facility] StationTuotfsr7443-81-45 12:10:45* [facility] StationDgwuzkm0964-50-95 12:10:45 [facility] StationMttjwkz5761-04-78 12:10:45* Evangelina Patterson MD - 01/08/2024 11:30 AM CDT History of Present Illness HPI Stable, normally uses a walker. No recurrent strokelike symptoms. Memory problematic on Aricept, not worse, no behavioral outburst. On Plavix for secondary stroke prevention. No new problems otherwise. Allergies as of 01/08/2024 - Reviewed 01/08/2024 Allergen Reaction Noted Penicillin g Anaphylaxis and Unknown 03/26/2019 Sulfa antibiotics Other and Unknown 03/26/2019 has a current medication list which includes the following prescription(s): acetaminophen extra srength, clopidogrel, donepezil, levothyroxine, and losartan. Answers submitted by the patient for this visit: Review of Systems (Submitted on 01/08/2024) Trouble walking : Yes Joint pain: Yes Vitals:01/08/24 1134 BP: 142/76 Pulse: 78 Resp: 16 Temp: 36 ?C (96.8 ?F) Neurological Exam She is awake, alert, pleasant. Strength 4+. Reflexes symmetric. In a wheelchair primarily for convenience. No results found for this or any previous visit. 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 [facility] StationZgnfaus9405-68-61 12:10:45Upcoming Encounters Health Maintenance Due Date Last Done Comments Bone Density Scan 1935 Medicare Annual Wellness (AWV) 1937 DTaP/Tdap/Td Vaccines (1 - Tdap) 1956 Zoster Vaccines (1 of 2) 1987 Respiratory Syncytial Virus (RSV) or >=60 (1 - 1-dose 60+ series) 1997 Pneumococcal Vaccine: 65+ Years (1 of 1 - PCV) 2002 Influenza Vaccine (#1) 2023 Lipid Panel 11/03/2028 11/04/2023, 06/18/2023 HIB Vaccines Aged Out No longer eligi ble based on patient's age to complete this topic HPV Vaccines Aged Out No longer eligi ble based on patient's age to complete this topic Hepatitis A Vaccines Aged Out No long er eligible based on patient's age to complete this topic Hepatitis B Vaccines Aged Out No long er eligible based on patient's age to complete this topic IPV Vaccines Aged Out No longer eligi ble based on patient's age to complete this topic Meningococcal Vaccine Aged Out No honey micheal eligible based on patient's age to complete this topic Rotavirus Vaccines Aged Out No longer eligible based on patient's age to complete this topic [facility] StationHdcbuin4435-22-18 12:10:45 Diagnosis 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, without behavioral disturbance, psychotic disturbance, mood disturbance, or anxiety (HCC) - Primary Cerebrovascular accident (CV A) due to thrombosis of middle cerebral artery, unspecified blood vessel laterality (HCC) [facility] StationNmgvvqb8535-72-43 12:10:45 [facility] StationEvclety1013-56-65 14:12:17* [facility] StationSxysoxw5926-50-48 14:12:17Upcoming Encounters Health Maintenance Due Date Last Done Comments Medicare Annual Wellness (AWV) 1935 DTaP/Tdap/Td Vaccines (1 - Tdap) 1956 Zoster Vaccines (1 of 2) 1987 Respiratory Syncytial Virus (RSV) or >=60 (1 - 1-dose 60+ series) 1997 Pneumococcal Vaccine: 65+ Years (1 of 1 - PCV) 2002 Influenza Vaccine (#1) 2023 Lipid Panel 11/03/2028 11/04/2023, 06/18/2023 HIB Vaccines Aged Out No longer eligi ble based on patient's age to complete this topic HPV Vaccines Aged Out No longer eligi ble based on patient's age to complete this topic Hepatitis A Vaccines Aged Out No long er eligible based on patient's age to complete this topic Hepatitis B Vaccines Aged Out No long er eligible based on patient's age to complete this topic IPV Vaccines Aged Out No longer eligi ble based on patient's age to complete this topic Meningococcal Vaccine Aged Out No honey micheal eligible based on patient's age to complete this topic Rotavirus Vaccines Aged Out No longer eligible based on patient's age to complete this topic [facility] StationNktclkp2366-63-85 14:12:17 [facility] StationFrfuykz9526-40-77 17:38:57 Done [facility] StationMscmkql3350-19-20 15:27:41 Jacqui Billy faxed Losartan 50mg tab refill request. [facility] StationGlbvhpz4577-28-97 13:42:27Upcoming Encounters Health Maintenance Due Date Last Done Comments Medicare Annual Wellness (AWV) 1935 DTaP/Tdap/Td Vaccines (1 - Tdap) 1956 Zoster Vaccines (1 of 2) 1987 Respiratory Syncytial Virus (RSV) or >=60 (1 - 1-dose 60+ series) 1997 Pneumococcal Vaccine: 65+ Years (1 of 1 - PCV) 2002 Influenza Vaccine (#1) 2023 Lipid Panel 11/03/2028 11/04/2023, 06/18/2023 HIB Vaccines Aged Out No longer eligi ble based on patient's age to complete this topic HPV Vaccines Aged Out No longer eligi ble based on patient's age to complete this topic Hepatitis A Vaccines Aged Out No long er eligible based on patient's age to complete this topic Hepatitis B Vaccines Aged Out No long er eligible based on patient's age to complete this topic IPV Vaccines Aged Out No longer eligi ble based on patient's age to complete this topic Meningococcal Vaccine Aged Out No honey micheal eligible based on patient's age to complete this topic Rotavirus Vaccines Aged Out No longer eligible based on patient's age to complete this topic [facility] StationApghtln0744-99-55 13:42:27 [facility] StationTquonxr4870-31-15 13:33:38 Patients daughter called requesting a refill on the Clopidogrel. [facility] StationHhfdjve8543-39-69 11:38:34Upcoming Encounters Health Maintenance Due Date Last Done Comments Medicare Annual Wellness (AWV) 1935 DTaP/Tdap/Td Vaccines (1 - Tdap) 1956 Zoster Vaccines (1 of 2) 1987 Respiratory Syncytial Virus (RSV) or >=60 (1 - 1-dose 60+ series) 1997 Pneumococcal Vaccine: 65+ Years (1 of 1 - PCV) 2002 Influenza Vaccine (#1) 2023 Lipid Panel 11/03/2028 11/04/2023, 06/18/2023 HIB Vaccines Aged Out No longer eligi ble based on patient's age to complete this topic HPV Vaccines Aged Out No longer eligi ble based on patient's age to complete this topic Hepatitis A Vaccines Aged Out No long er eligible based on patient's age to complete this topic Hepatitis B Vaccines Aged Out No long er eligible based on patient's age to complete this topic IPV Vaccines Aged Out No longer eligi ble based on patient's age to complete this topic Meningococcal Vaccine Aged Out No honey micheal eligible based on patient's age to complete this topic Rotavirus Vaccines Aged Out No longer eligible based on patient's age to complete this topic [facility] StationZddpeck7483-71-47 11:38:34 [place] [id number] 16:40:31 Patients daughter has been notified. [facility] StationVirmhma0633-17-71 15:10:10 Patients daughter called and stated that the patients handicap placard expires this month and they would like to know if they can get a prescription for a new one. Patients last appointment was 11/26. [facility] StationMchwnhz2978-97-89 11:57:01* [facility] StationPhqbgeg5097-83-87 11:57:01Upcoming Encounters Health Maintenance Due Date Last Done Comments Medicare Annual Wellness (AWV) 1935 DTaP/Tdap/Td Vaccines (1 - Tdap) 1956 Zoster Vaccines (1 of 2) 1987 Respiratory Syncytial Virus (RSV) or >=60 (1 - 1-dose 60+ series) 1997 Pneumococcal Vaccine: 65+ Years (1 of 1 - PCV) 2002 Influenza Vaccine (#1) 2023 Lipid Panel 11/03/2028 11/04/2023, 06/18/2023 HIB Vaccines Aged Out No longer eligi ble based on patient's age to complete this topic HPV Vaccines Aged Out No longer eligi ble based on patient's age to complete this topic Hepatitis A Vaccines Aged Out No long er eligible based on patient's age to complete this topic Hepatitis B Vaccines Aged Out No long er eligible based on patient's age to complete this topic IPV Vaccines Aged Out No longer eligi ble based on patient's age to complete this topic Meningococcal Vaccine Aged Out No honey micheal eligible based on patient's age to complete this topic Rotavirus Vaccines Aged Out No longer eligible based on patient's age to complete this topic [facility] StationDcwtwmj4728-24-91 11:57:01 [facility] StationKtftzyj4280-07-10 11:28:39* [facility] StationTokspkg0582-63-02 11:28:39* Evangelina Patterson MD - 11/27/2023 10:15 AM CDT History of Present Illness HPI A lot of fatigue, at [place]. Had a hospital stay with chest pain but no [place]. ? Worsening L sided weakness but repeat MRI no new CVA. Memory still problematic Allergies as of 11/27/2023 - Reviewed 11/27/2023 Allergen Reaction Noted Penicillin g Anaphylaxis and Unknown 03/26/2019 Sulfa antibiotics Other and Unknown 03/26/2019 has a current medication list which includes the following prescription(s): clopidogrel, levothyroxine, losartan, and donepezil. Answers submitted by the patient for this visit: Review of Systems (Submitted on 11/26/2023) Weakness: Yes Vitals:11/27/23 1015 BP: 166/67 Pulse: 81 Resp: 16 Temp: 34 ?C (93.2 ?F) SpO2: 99% Neurological Exam Mental Status Awake and alert. Mild dysarthria present. Forgetful. Cranial NervesCN II: Visual acuity is normal. CN III, IV, : Extraocular movements intact bilaterally. Pupils equal round and reactive to light bilaterally. CN VII: Full and symmetric facial movement. CN XII: Tongue midline without atrophy or fasciculations. MotorStrength is 5/5 throughout all four extremities. Drift on the left. SensoryLight touch is normal in upper and lower extremities. Temperature is normal in upper and lower extremities. Vibration is normal in upper and lower extremities. ReflexesDeep tendon reflexes: Symmetric. Gait In a wheelchair today. No results found for this or any previous visit. 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 Increase Aricept to 10 mg, stop gabapentin Time: 35 minutes [facility] StationXzuwmqc6751-70-10 11:28:39Upcoming Encounters Health Maintenance Due Date Last Done Comments Medicare Annual Wellness (AWV) 1935 DTaP/Tdap/Td Vaccines (1 - Tdap) 1956 Zoster Vaccines (1 of 2) 1987 Respiratory Syncytial Virus (RSV) or >=60 (1 - 1-dose 60+ series) 1997 Pneumococcal Vaccine: 65+ Years (1 of 1 - PCV) 2002 Influenza Vaccine (#1) 2023 Lipid Panel 11/03/2028 11/04/2023, 06/18/2023 HIB Vaccines Aged Out No longer eligi ble based on patient's age to complete this topic HPV Vaccines Aged Out No longer eligi ble based on patient's age to complete this topic Hepatitis A Vaccines Aged Out No long er eligible based on patient's age to complete this topic Hepatitis B Vaccines Aged Out No long er eligible based on patient's age to complete this topic IPV Vaccines Aged Out No longer eligi ble based on patient's age to complete this topic Meningococcal Vaccine Aged Out No honey micheal eligible based on patient's age to complete this topic Rotavirus Vaccines Aged Out No longer eligible based on patient's age to complete this topic [facility] StationJykwkke0284-25-88 11:28:39 Diagnosis Cerebrovascular accident (CV A) due to thrombosis of middle cerebral artery, unspecified blood vessel laterality (HCC) - Primary 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, without behavioral disturbance, psychotic disturbance, mood disturbance, or anxiety (HCC) [facility] StationOzdkxzm6091-65-32 11:28:39 [facility] StationMkvmodn1966-57-91 17:21:23* [facility] StationJknxwyc7673-43-27 17:21:23Upcoming Encounters Health Maintenance Due Date Last Done Comments Lipid Panel 1935 Medicare Annual Wellness (AWV) 1937 DTaP/Tdap/Td Vaccines (1 - Tdap) 1956 Zoster Vaccines (1 of 2) 1987 Respiratory Syncytial Virus (RSV) or >=60 (1 - 1-dose 60+ series) 1997 Pneumococcal Vaccine: 65+ Ye ars (1 of 1 - PCV) 2002 Influenza Vaccine (#1) 2023 HIB Vaccines Aged Out No longer eligi ble based on patient's age to complete this topic HPV Vaccines Aged Out No longer eligi ble based on patient's age to complete this topic Hepatitis A Vaccines Aged Out No long er eligible based on patient's age to complete this topic Hepatitis B Vaccines Aged Out No long er eligible based on patient's age to complete this topic IPV Vaccines Aged Out No longer eligi ble based on patient's age to complete this topic Meningococcal Vaccine Aged Out No honey micheal eligible based on patient's age to complete this topic Rotavirus Vaccines Aged Out No longer eligible based on patient's age to complete this topic [place] [id number] 17:21:23 [place] [id number] 17:20:54 Done [facility] StationMuuxaid4466-12-30 16:39:48 Jacqui Billy faxed refill request [facility] StationKgmcuih5949-93-79 11:23:51 TRANSITIONAL CARE MANAGEMENT ASSESSMENT 11/06/2023 Qasim Batista [id number] Qasim Batista is a 88 year old /White female was admitted on 11/04/23 to [facility] EMERGENCY DEPT. She was discharged on 11/05/23 with discharge disposition of HR- Routine Discharge. Admitting Physician: Alexys Thapa Discharge Diagnosis: Chest pain with ACS ruled ou No linked episodes TCM Wue-chzu-wx-face outreach documentation: Discharge Assessment Chart Assessed: 11/06/23 TCM Outreach Completed: 11/06/23 Do you have a few minutes to speak with me about how you are doing at home?: Yes (pt daughter reports pt is doing well) Discharge Instructions Do you understand your at-home instructions?: Yes Medications Have you filled your prescriptions and do you have them in your home? : N/A Do you know how to take your medications?: Yes Supplies Did you receive applicable home medical supplies/equipment?: N/A Follow Up Appointment Has a follow up appointment been scheduled?: No May I assist with scheduling this appointment?: Patient has outside PCP Do you have any questions about your follow up appointments?: No Pt needs to reschedule previous appt with Vascular, as pt was in the waiting room "when her heart started hurting". Will send message to clinic to assist with scheduling. Home Health Assistance Has the home health nurse contacted you since you've been home?: N/A Survey - Recognition Is there anything you would like to share about your recent hospitalization, or anyone you would like to recognize?: No Do you have any suggestions for improvement?: No Do you have any other questions or concerns at this time?: No [facility]Bxahit1907-[facility] 18:07:45Upcoming Encounters Scheduled Orders Name Type Priority Associated Diagnoses Orde r Schedule MRI brain wo IV contrast Imaging Routine Cerebrovascular acci dent (CVA) due to thrombosis of middle cerebral artery, unspecified blood vessel laterality (HCC) Expected: 11/05/2023, Expires: 11/04/2024 Health Maintenance Due Date Last Done Comments Lipid Panel 1935 Medicare Annual Wellness (AWV) 1935 DTaP/Tdap/Td Vaccines (1 - Tdap) 1956 Zoster Vaccines (1 of 2) 1987 Respiratory Syncytial Virus (RSV) or >=60 (1 - 1-dose 60+ series) 1997 Pneumococcal Vaccine: 65+ Ye ars (1 of 1 - PCV) 2002 Influenza Vaccine (#1) 2023 HIB Vaccines Aged Out No longer eligi ble based on patient's age to complete this topic HPV Vaccines Aged Out No longer eligi ble based on patient's age to complete this topic Hepatitis A Vaccines Aged Out No long er eligible based on patient's age to complete this topic Hepatitis B Vaccines Aged Out No long er eligible based on patient's age to complete this topic IPV Vaccines Aged Out No longer eligi ble based on patient's age to complete this topic Meningococcal Vaccine Aged Out No honey micheal eligible based on patient's age to complete this topic Rotavirus Vaccines Aged Out No longer eligible based on patient's age to complete this topic [place] [address]-08-07 18:07:45 Diagnosis Cerebrovascular accident (CV A) due to thrombosis of middle cerebral artery, unspecified blood vessel laterality (HCC) - Primary [facility] StationYrrirov9673-81-70 18:07:45 [place] [address]-08-07 14:35:40 Patients daughter called and stated that the patient went to the ER on 11/04 due to symptoms she was experiencing of weakness in her left leg and being unable to move. You did recommend they visit the ER due to patient having a stroke previously. [facility] was going to order the patient to have an MRI done however the patients daughter would like for you to order the MRI. They would like the order sent to [facility]. [facility] StationSjytwhu8653-18-12 13:46:37 Per CYNDEE Middleton, patient good to d/c from the ED. Pt discharged to home, pt given printed and verbal discharge instructions. Patient verbalized understanding and able to teach back discharge instructions Pt awake alert oriented x 4, resp reg unlabored, skin w/d, color appropriate for race, moves all ext well. Daughter verbalizes understanding of plan of care. States she will follow up with patient's neurologist and will follow up with PCP. Advised to seek medical attention for new/prolonged/worsening of symptoms, pt ambulated from unit with steady gait, in no apparent distress. [facility] CenterVhmuyu7997-19-16 12:57:40 Neurology at bedside speaking with patient and daughter. [place] [address]-08-07 12:20:03 Neurology called to speak with patient prior to discharge. [place] [address]-08-07 12:17:42 Patient returns to the ED treatment room. [place] 767[address]-08-07 11:45:00 Per cardiology, patient OK to discharge. [place] [address]67[address]-08-07 11:30:00 Cardiology at bedside speaking with patient. [place] [address]-08-07 11:06:30 Patient at ultrasound. [place] [address]67[address]-08-07 10:46:39 Patient pending discharge for clearance from cardiology and neurology. [place] [address]-08-07 10:02:09 Patient finished eating. Daughter at bedside speaking with patient and grandson on telephone. [place] [address]-08-07 09:10:54 Patient sitting upright eating breakfast. AOX4, NAD, VSS [place] [address]-08-07 09:05:47 KOBI Owens at bedside. [place] 76799-08-07 08:54:30 MD Juan at bedside. [place] [address]99-08-07 07:11:11 Report received from FINA Jansen. [place] [address]-08-06 12:06:03 Qasim Batista is a 88 year old female presenting to the ED with c/o chest pain while waiting in the vascular waiting room this morning. Was going to vascular appointment due to decreased blood flow to the left leg. Began having vomiting and chest pain in lobby of office, referred to the ED. Patient reports she began feeling bad last night. Daughter reports patient had stroke in May 2023. Has residual deficits to the left side, per daughter. Daughter reports she noticed patient has had difficulty with word finding today. States she is unsure of patient last known well. States she saw her on Friday and patient appeared tired. EKG in triage. Patient actively vomiting in triage process. AOX4, appears uncomfortable, VSS T Magdalena Pablo [place] [address]-08-06 11:58:00 Associated Order(s): EKG-12 Lead ROUTINE ONCE Pre-Procedure Diagnose(s): Chest pain, unspecified type Post-Procedure Diagnose(s): Chest pain, unspecified type [facility] Emergency Department Note Patient Name: Qasim Batista Date of : 1935 88 year old female Treatment Room: [facility] Primary Care Physician: PATIENT DOES NOT HAVE A PCP Patient Escorted by: Family [5] Mode of Arrival: Personal means [1] EMS Treatment Prior to ED Arrival: DIAGNOSTIC ASSISTANT treatment: None Travel and Exposure Screening: Symptoms Does patient have any of these symptoms?: (not recorded) Exposure Screening Has patient had contact with someone with a communicable disease in the last month?: (not recorded) Diseases exposed to:: (not recorded) Is Patient ?: (not recorded) Exposure Date: (not recorded) Chief Complaint: Chief Complaint Patient presents with Chest Pain Vomiting History of Present Illness: 88-year-old female presents from vascular surgery clinic for episode of chest pain. She describes the chest pain as pressure-like, substernal, lasting about 30 minutes to an hour and then relieved spontaneously. She denies any associated symptoms such as shortness of breath, diaphoresis, nausea. She denies any history of same. She was being evaluated for arterial occlusive disease of the left lower extremity. She denies any leg pain at this time. She also reports generalized weakness that started last night where she has difficulty walking. 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 She denies any new weakness, numbness. History provided by: Patient Past Medical History/Immunizations: History reviewed. No pertinent past medical history. Tetanus received in last 5 years: Unknown Allergies: Allergies Allergen Reactions Penicillin Anaphylaxis Sulfa (Sulfonamide Antibiotics) Other - See comments "turns my skin purple" Past Social History: Substance & Sexual Activity No substance use or sexual activity history on file. Past Surgical History: History reviewed. No pertinent surgical history. Review of Systems: Review of Systems All other systems reviewed and are negative. Physical Exam: ED Triage Vitals [11/04/23 1207] Weight 59 kg (130 lb) Actual or estimated Height 1.6 m (5' 3") BP 139/78 Pulse 100 Resp 17 Temp 37 ?C (98.6 ?F) Temp src SpO2 98 % Measured on Physical Exam Vitals and nursing note reviewed. Constitutional: General: She is not in acute distress. Appearance: Normal appearance. She is well-developed. She is not ill-appearing, toxic-appearing or diaphoretic. HENT: Head: Normocephalic and atraumatic. No right periorbital erythema or left periorbital erythema. Mouth/Throat: Pharynx: Uvula midline. Eyes: General: Lids are normal. Vision grossly intact. No scleral icterus. Conjunctiva/sclera: Conjunctivae normal. Pupils: Pupils are equal, round, and reactive to light. Neck: Thyroid: No thyromegaly. Trachea: Trachea normal. No tracheal deviation. Meningeal: Brudzinski's sign and Kernig's sign absent. Cardiovascular: Rate and Rhythm: Normal rate and regular rhythm. Pulses: Dorsalis pedis pulses are 1+ on the right side and 1+ on the left side. Heart sounds: Normal heart sounds. No murmur heard. No friction rub. No gallop. Pulmonary: Effort: Pulmonary effort is normal. No respiratory distress. Breath sounds: Normal breath sounds. No stridor. No wheezing, rhonchi or rales. Chest: Chest wall: No tenderness. Abdominal: General: Bowel sounds are normal. There is no distension or abdominal bruit. Palpations: Abdomen is soft. There is no mass or pulsatile mass. Tenderness: There is no abdominal tenderness. There is no right CVA tenderness, left CVA tenderness, guarding or rebound. Hernia: No hernia is present. Musculoskeletal: General: Normal range of motion. Cervical back: Full passive range of motion without pain, normal range of motion and neck supple. Right lower leg: No edema. Left lower leg: No edema. Lymphadenopathy: Cervical: No cervical adenopathy. Skin: General: Skin is warm and dry. Coloration: Skin is not pale. Findings: No bruising, ecchymosis, erythema, petechiae or rash. Neurological: Mental Status: She is alert and oriented to person, place, and time. Cranial Nerves: Cranial nerves 2-12 are intact. No cranial nerve deficit. Sensory: No sensory deficit. Motor: Motor function is intact. No abnormal muscle tone. Coordination: Coordination is intact. Coordination normal. Gait: Gait is intact. Deep Tendon Reflexes: Reflexes are normal and symmetric. Psychiatric: Attention and Perception: Attention normal. Speech: Speech normal. Behavior: Behavior normal. Behavior is cooperative. Thought Content: Thought content normal. Cognition and Memory: Cognition normal. Radiology: CT HEAD WO CONTRAST Final Result CT HEAD WO CONTRAST HISTORY: Female 88 years Neuro deficit, acute, stroke suspected COMPARISON: None TECHNIQUE: Routine CT head without contrast FINDINGS: The ventricles and cerebral sulci are prominent commensurate with mild global volume loss. The lateral and third ventricles are dilated slightly out of proportion to the degree of sulcal prominence. No midline shift or pathological extra-axial fluid collection is present. The basal cisterns are unremarkable. No acute intracranial hemorrhage or mass effect is present. The storm-white matter differentiation is preserved. A remote lacunar infarct is noted in the right caudate head extending into the putamen. No additional significant parenchymal attenuation abnormality is present. The calvarium and skull base are unremarkable. The mastoid air cells and visualized paranasal air sinuses are clear. IMPRESSION No acute intracranial abnormality Remote lacunar infarct in the right dorsal striatum. Mild lateral and third ventriculomegaly out of proportion to the degree of sulcal prominence. This is nonspecific and may reflect cerebral volume loss but can also be seen in normal pressure hydrocephalus in the correct clinical setting XR CHEST 1 VW Final Result PROCEDURE: XR CHEST 1 VW 11/04/2023 12:19 PM CLINICAL INDICATION: chest pain COMPARISON: None FINDINGS: The lungs are mildly hypoventilated. Right apical streaky opacities are noted with elevation of the right hilum and right-sided deviation of trachea suggestive of fibrotic bands. A small patchy left basilar linear opacity could represent atelectasis. A right-sided retrocardiac opacity, could represent, consolidation or pleural plaque. There is no pleural effusion. No pneumothorax. The cardiac size is normal. No aggressive osseous lesion. IMPRESSION Basilar lung findings are none specific, could be sequela of aspiration in the right retrocardiac and left lung base. Evidence of right apical fibrosis. Lab Results: Lab Results COMP. METABOLIC PANEL (12762) - Abnormal Result Value Ref Range NA 137 135 - 145 mmol/L K 3.8 3.5 - 5.0 mmol/L CL 101 98 - 108 mmol/L CO2 TOTAL 32 (*) 23 - 31 mmol/L AGAP 4 2 - 16 BUN 29 (*) 7 - 23 mg/dL GLUCOSE 94 70 - 110 mg/dL CREATININE 0.90 0.50 - 1.04 mg/dL TOTAL BILI 0.9 0.1 - 1.1 mg/dL CALCIUM 9.4 8.6 - 10.6 mg/dL T PROTEIN 7.2 6.3 - 8.2 g/dL ALBUMIN 3.8 3.5 - 5.0 g/dL ALK PHOS 73 34 - 122 U/L ALTv 20 5 - 35 U/L AST(SGOT) 40 13 - 40 U/L eGFR 62.4 mL/min/1.73m2 URINALYSIS - Abnormal APPEARANCE Hazy (*) Clear COLOR Yellow Yellow PH 8.0 4.8 - 8.0 SP GRAVITY 1.004 1.003 - 1.030 GLU U QUAL Normal Normal BLOOD 1+ (*) Negative KETONES Negative Negative PROTEIN Negative Negative UROBILIN Normal Normal BILIRUBIN Negative Negative NITRITE Negative Negative LEUK DIONISIO 250/uL (*) Negative RBC/HPF 13 (*) 0 - 3 HPF WBC/HPF 4 0 - 5 HPF BACTERIA Few (*) Negative SQ EPITH 1 <=2 HPF CBC WITH DIFF - Abnormal WBC 14.25 (*) 4.30 - 11.10 10*3/?L RBC 4.03 3.93 - 5.25 10*6/?L HGB 12.6 11.6 - 15.0 g/dL HCT 37.5 35.7 - 45.2 % MCV 93.1 80.6 - 95.5 fL MCH 31.3 25.9 - 32.8 pg MCHC 33.6 31.6 - 35.1 g/dL RDW-SD 42.9 39.0 - 49.9 fL RDW-CV 12.5 12.0 - 15.5 % PLT 125 (*) 166 - 358 10*3/?L MPV 9.1 (*) 9.5 - 12.9 fL NRBC/100 WBC 0.0 0.0 - 10.0 /100 WBCs NRBC x103<0.01 10*3/?L GRAN MAT (NEUT) % 82.1 % IMM GRAN % 0.50 % LYMPH % 8.6 % MONO % 8.6 % EOS % 0.1 % BASO % 0.1 % GRAN MAT x103(ANC) 11.71 (*) 1.88 - 7.09 10*3/uL IMM GRAN x1030.07 (*) 0.00 - 0.06 10*3/uL LYMPH x1031.22 (*) 1.32 - 3.29 10*3/uL MONO x1031.22 (*) 0.33 - 0.92 10*3/uL EOS x103<0.03 (*) 0.03 - 0.39 10*3/uL BASO x103<0.03 0.01 - 0.07 10*3/uL TROPONIN I - Normal TROPONIN I 0.027 <=0.034 ng/mL INFLUENZA A/B RSV COVID NAAT - Normal Influenza A NAAT Negative Negative Influenza B NAAT Negative Negative RSV by PCR Negative Negative SARS-CoV-2 NAAT Negative Negative EKG: If EKG completed, see Procedure Note. Orders and Treatments: Orders Placed This Encounter Procedures XR CHEST [address] HEAD WO CONTRAST TROPONIN I COMP. METABOLIC PANEL (78362) URINALYSIS CBC WITH DIFF Influenza A B RSV COVID NAAT Lab Only COVID Interpretation No orders of the defined types were placed in this encounter. First Provider Eval: ED Events Date/Time Event User Comments 11/04/23 1213 Medical Screening Begins MUSTAPHA NICHOLAS MD -- 11/04/23 1213 First Provider Evaluation MUSTAPHA NICHOLAS MD -- AdmissionCare Guideline: Chest Pain - OBS, Observation Based on the indications selected for the patient, the bed status of Observation was determined to be MET The following indications were selected as present at the time of evaluation of the patient: - Observation Care Admission Criteria - Observation care is indicated for 1 or more of the following: - Patient classified as intermediate risk or high risk for acute coronary syndrome (eg, via use of a clinical decision tool or risk calculator (eg, HEART score greater than 3)) AdmissionCare documentation entered by: Mustapha Nicholas [facility], 28 edition, Copyright ? 2023 [employer] All Rights Reserved. [id number]:42:22-05:00 ED COURSE Diagnosis/Impression as of 11/04/23 1654 Chest pain, unspecified type Generalized weakness Procedures: EKG-12 Lead ROUTINE ONCE Date/Time: 11/04/2023 4:50 PM Performed by: Mustapha Nicholas MD Authorized by: Mustapha Nicholas MD ECG interpreted by ED Physician in the absence of a licensed clinical psychologist: yes Interpretation: Interpretation: normal Rate: ECG rate assessment: normal Rhythm: Rhythm: sinus rhythm Ectopy: Ectopy: none QRS: QRS axis: Normal QRS intervals: Normal QRS conduction: normal ST segments: ST segments: Normal T waves: T waves: normal Q waves: Abnormal Q-waves: not present MDM: Medical Decision Making Problems Addressed: Chest pain, unspecified type: acute illness or injury that poses a threat to life or bodily functions Generalized weakness: acute illness or injury Amount and/or Complexity of Data Reviewed Independent Historian: caregiver Labs: ordered. Decision-making details documented in ED Course. Radiology: ordered. Decision-making details documented in ED Course. ECG/medicine tests: ordered and independent interpretation performed. Decision-making details documented in ED Course. Discussion of management or test interpretation with external provider(s): Discussed case with Dr. Thapa, hospitalist, including history, physical, diagnostics, agrees to admit Risk Decision regarding hospitalization. Flowsheet Documentation: Scoring Tools: No data recorded HEART Score: 4 Disposition/Condition: ED Disposition ED Disposition Admit - Observation Condition Stable Comment Treatment Team: [facility] [[id number]] Discharge Medications: Patient's Medications No medications on file Follow-up: Electronically signed by: Mustapha Nicholas MD [facility]231653 [facility] 11:58:00 AdmissionCare Guideline: Chest Pain - OBS, Observation Based on the indications selected for the patient, the bed status of Observation was determined to be MET The following indications were selected as present at the time of evaluation of the patient: - Observation Care Admission Criteria - Observation care is indicated for 1 or more of the following: - Patient classified as intermediate risk or high risk for acute coronary syndrome (eg, via use of a clinical decision tool or risk calculator (eg, HEART score greater than 3)) AdmissionCare documentation entered by: Mustapha Nicholas [facility], 28th edition, Copyright ? 2023 [facility] All Rights Reserved. [id number]:42:22-05:00 [facility] CenterRtomgg3694-75-25 11:26:59* [facility] StationKweyauu3065-26-95 11:26:59Upcoming Encounters Health Maintenance Due Date Last Done Comments Lipid Panel 1935 Medicare Annual Wellness (AWV) 1935 DTaP/Tdap/Td Vaccines (1 - Tdap) 1956 Zoster Vaccines (1 of 2) 1987 Respiratory Syncytial Virus (RSV) or >=60 (1 - 1-dose 60+ series) 1997 Pneumococcal Vaccine: 65+ Ye ars (1 of 1 - PCV) 2002 Influenza Vaccine (#1) 2023 HIB Vaccines Aged Out No longer eligi ble based on patient's age to complete this topic HPV Vaccines Aged Out No longer eligi ble based on patient's age to complete this topic Hepatitis A Vaccines Aged Out No long er eligible based on patient's age to complete this topic Hepatitis B Vaccines Aged Out No long er eligible based on patient's age to complete this topic IPV Vaccines Aged Out No longer eligi ble based on patient's age to complete this topic Meningococcal Vaccine Aged Out No honey micheal eligible based on patient's age to complete this topic Rotavirus Vaccines Aged Out No longer eligible based on patient's age to complete this topic [facility] [id number] 11:26:59 [place] [id number] 11:24:04 Done [facility] StationYbpjsnh7688-53-55 10:40:45 Ela faxed prescription request. [facility] StationFxbpvey7328-09-59 17:35:44Upcoming Encounters Health Maintenance Due Date Last Done Comments Lipid Panel 1935 Medicare Annual Wellness (AWV) 1935 DTaP/Tdap/Td Vaccines (1 - Tdap) 1956 Zoster Vaccines (1 of 2) 1987 Respiratory Syncytial Virus (RSV) or >=60 (1 - 1-dose 60+ series) 1997 Pneumococcal Vaccine: 65+ Ye ars (1 of 1 - PCV) 2002 Influenza Vaccine (Season Ended) 2023 HIB Vaccines Aged Out No longer eligi ble based on patient's age to complete this topic HPV Vaccines Aged Out No longer eligi ble based on patient's age to complete this topic Hepatitis A Vaccines Aged Out No long er eligible based on patient's age to complete this topic Hepatitis B Vaccines Aged Out No long er eligible based on patient's age to complete this topic IPV Vaccines Aged Out No longer eligi ble based on patient's age to complete this topic Meningococcal Vaccine Aged Out No honey micheal eligible based on patient's age to complete this topic Rotavirus Vaccines Aged Out No longer eligible based on patient's age to complete this topic [facility] StationNywoqwp0347-04-26 17:35:44 [facility] StationQfdxtqp1675-30-18 15:07:43 [facility] called stating that the Patient is needing a refill on Done[facility]il 5[facility] StationEpwqawg6779-06-78 13:32:42* [facility] StationOspoont8664-33-54 13:32:42 Upcoming Encounters Health Maintenance Due Date Last Done Comments Lipid Panel 1935 Medicare Annual Wellness (AWV) 1937 DTaP/Tdap/Td Vaccines (1 - Tdap) 1956 Zoster Vaccines (1 of 2) 1987 Respiratory Syncytial Virus (RSV) or >=60 (1 - 1-dose 60+ series) 1997 Pneumococcal Vaccine: 65+ Ye ars (1 of 1 - PCV) 2002 Influenza Vaccine (Season Ended) 2023 HIB Vaccines Aged Out No longer eligi ble based on patient's age to complete this topic HPV Vaccines Aged Out No longer eligi ble based on patient's age to complete this topic Hepatitis A Vaccines Aged Out No long er eligible based on patient's age to complete this topic Hepatitis B Vaccines Aged Out No long er eligible based on patient's age to complete this topic IPV Vaccines Aged Out No longer eligi ble based on patient's age to complete this topic Meningococcal Vaccine Aged Out No honey micheal eligible based on patient's age to complete this topic Rotavirus Vaccines Aged Out No longer eligible based on patient's age to complete this topic [facility] StationPrntcsz4068-39-35 13:32:42 [facility] StationKoueftk8025-06-58 16:28:32 Notified patients daughter Gabriel. She would like a new order sent out. [facility] StationJzplmur0194-34-55 15:17:56 Daughter called and stated that this past weekend the patient showed signs of depression. Daughter would like to know if either Losartan or Gabapentin could be causing this. [facility] StationHonzdwd1227-89-59 18:14:18* Evangelina Patterson MD - 09/11/2023 6:11 PM CDT [facility] health orders [facility] StationKpovpmb6529-93-69 18:14:18Upcoming Encounters Health Maintenance Due Date Last Done Comments Lipid Panel 1935 Medicare Annual Wellness (AWV) 1937 DTaP/Tdap/Td Vaccines (1 - Tdap) 1956 Zoster Vaccines (1 of 2) 1987 Respiratory Syncytial Virus (RSV) or >=60 (1 - 1-dose 60+ series) 1997 Pneumococcal Vaccine: 65+ Ye ars (1 of 1 - PCV) 2002 Influenza Vaccine (Season Ended) 2023 HIB Vaccines Aged Out No longer eligi ble based on patient's age to complete this topic HPV Vaccines Aged Out No longer eligi ble based on patient's age to complete this topic Hepatitis A Vaccines Aged Out No long er eligible based on patient's age to complete this topic Hepatitis B Vaccines Aged Out No long er eligible based on patient's age to complete this topic IPV Vaccines Aged Out No longer eligi ble based on patient's age to complete this topic Meningococcal Vaccine Aged Out No honey micheal eligible based on patient's age to complete this topic Rotavirus Vaccines Aged Out No longer eligible based on patient's age to complete this topic [facility] StationYumdlca2916-07-38 18:14:18 Diagnosis Cerebrovascular accident (CV A) due to thrombosis of middle cerebral artery, unspecified blood vessel laterality (HCC) - Primary Falls frequently Personal history of fall Memory loss [facility] StationFhglymi1339-62-61 18:14:18 [facility] StationNofupjg5417-80-20 09:00:00 Images from the original note were not included. Venipuncture collection performed by clean technique on the left anticubitus. Total of 1 attempts were made. Slight pressure and a bandage/dressing were applied to the site(s). The patient experienced no complications. The following specimens were processed according to instructions and sent to [facility] laboratories per lab order on 06/18/2023 : LT BLUE SST 1 RED LAV 1 PPT DK GREEN (LiHep) DK GREEN (SodH) STORM DK BLUE (K2) DK BLUE (S) ACD Blood Culture NIPT/NTD [facility] [employer] [facility]
[2024-11-10] MEDS ORDERED: NA CHLORIDE 0.9% 500 ML ONE (22:07)
[2024-11-10 22:19] LABS: Absolute Lymphocytes (CBC) 1.1 K/uL (0.7-4.9); Hematocrit 35.7 % (36.0-45.0); Hemoglobin 12.1 g/dL (12.0-15.0); MCH 31.2 pg (27.0-35.0); MCHC 33.8 g/dL (32.0-36.0); MCV 92.2 fL (80-100); MPV 7.1 fL (7.6-11.3); Nucleated RBC Absolute Count 0.0 (0-0); Nucleated Red Blood Cells % 0.0 % (0-0); RBC Red Blood Cell Count 3.87 M/uL (3.86-4.86); White Blood Count 7.70 thou/uL (4.3-10.9)
[2024-11-10 22:36] LABS: ALT/SGPT 17.0 U/L (13-56); AST/SGOT 16.0 U/L (15-37); Albumin 2.9 g/dL (3.4-5.0); Albumin/Globulin Ratio 0.8 (1.1-1.8); Alkaline Phosphatase 58.0 U/L (45-117); Anion Gap 9.4 mEq/L (5.0-15.0); BUN Blood Urea Nitrogen 27.0 mg/dL (7-18); Globulin 3.5 g/dL (2.3-3.5); Glucose Level 106.0 mg/dL (74-106); Lipase 78.0 U/L (13-75); Potassium 4.4 mEq/L (3.5-5.1)
[2024-11-10 23:12] LABS: Urine Microscopic Reflex YN NO UMIC
--- NOTE | 2024-11-11 01:10 | RAD REPORT ---
EXAM DESCRIPTION: Abdomen Pelvis W Contrast CLINICAL HISTORY: 89 years Female, abd bloating TECHNIQUE: Helical CT axial images are obtained from the lung bases to the pubic symphysis with IV co ntrast. No oral contrast was administered. Multiplanar reconstruction. This exam was performed according to our departmental dose-optimization program, which includes automated exposure control, a djustment of the mA and/or kV according to patient size and/or use of iterative reconstruction technique. COMPARISON: None. FINDINGS: LUNG BASES: No basilar consolidation or effusions. LIVER: Normal in size. Normal attenuation. A 5 mm cyst within the posterior right hepatic lobe. No suspicious hepatic lesions. HEPATOBILIARY: Normal-appearing gallbladder. No intra- or extrahepatic ductal dilatation. SPLEEN: Normal size. PANCREAS: Normal size and contour. No focal mass. ADRENAL GLANDS: Normal size. No adrenal masses. KIDNEYS: No obstructing calculi or hydronephrosis bilaterally. No nephrolithiasis. Small bilateral Bosniak class I and II cysts, no further workup is warranted. No focal solid mass. BOWEL AND MESENTERY: Small hiatal hernia. No small or large bowel dilatation. Descending and sigmoid colon diverticulosis. Normal appendix. No abnormal mesenteric lymphadenopathy. No free fluid or pneumoperitoneum. RETROPERITONEUM: Normal caliber abdominal aorta without aneurysm. Moderate ASVD. No abnormal retrop eritoneal lymphadenopathy. PELVIS: Urinary bladder is unremarkable. Status post hysterectomy. ABDOMINAL WALL: The abdominal wall is intact. BONES: Moderate levoscoliosis thoracolumbar junction. Intact appearing left hip arthroplasty. Statu s post right hip pinning. No suspicious osseous lytic or blastic lesions seen. IMPRESSION: 1. No acute intra-abdominal or pelvic disease. 2. Descending and sigmoid colon diverticulosis without diverticulitis. 3. Small hiatal hernia. 4. Status post hysterectomy. Electronically signed by: Franicsco Teran MD 11/11/2024 01:05 AM CDT 1P Due to temporary technical issues with the PACS/PLAYD8 reporting system, reports are being mike d by the in-house radiologist without review as a courtesy to ensure prompt reporting the interpreting radiologist is fully responsible for the content of the report. Transcribed Date/Time: 11/11/2024 1:09 AM
--- NOTE | 2024-11-11 01:11 | RAD REPORT ---
ADDENDUM #1 These findings were communicated to Dr Dodson on 11/11/2024 12:34 AM ([facility]). Electronically signed by: Francisco Teran MD 11/11/2024 01:08 AM T 1P End of Addendum EXAM DESCRIPTION: Head Brain Wo Cont CLINICAL HISTORY: 89 years Female, CONFUSED TECHNIQUE: Helical CT axial images are obtained from the base of skull through the vertex without IV contrast. Multiplanar reconstruction. This exam was performed according to our departmental dose-optimization program, which includes automated exposure control, adjustment of the mA and/or kV according to patient size and/or use of iterative reconstruction technique. COMPARISON: None. FINDINGS: BRAIN: Moderate size area of decreased attenuation which is suspicious for acute/subacute infarct inv olving the mid and posterior right temporal lobe. Moderate size old infarct posterior right temporal lobe and right occipital lobe. Old infarct right basal ganglia with mild volume loss. No par enchymal hemorrhage, intra-axial mass, mass effect, or midline shift. No abnormal extra-axial fluid collections. VENTRICLES: Mild diffuse parenchymal atrophy with compensatory increase size of the CSF spaces. No hy drocephalus. CALVARIUM: Bone windows show no skull fracture or calvarial lesions. PARANASAL SINUSES AND MASTOIDS: Clear paranasal sinuses. Severe left mastoiditis. Right mastoid air cells are clear. IMPRESSION: 1. Moderate size acute/subacute infarct involving the mid and posterior right temporal lobe. Follow -up MRI brain is recommended. 2. Moderate size old infarct posterior right temporal lobe and right occipital lobe. Old infarct ri ght basal ganglia with mild volume loss. 3. No parenchymal hemorrhage. 4. Mild atrophy. 5. Severe left mastoiditis. Electronically signed by: Francisco Teran MD 11/11/2024 12:26 AM CDT 1P Due to temporary technical issues with the PACS/GigOwl reporting system, reports are being mike d by the in-house radiologist without review as a courtesy to ensure prompt reporting the interpreting radiologist is fully responsible for the content of the report. Transcribed Date/Time: 11/11/2024 1:11 AM
--- NOTE | 2024-11-11 01:28 | EDPHYS ---
Physician Documentation [facility] Name: Nerissa Batista Age: 89 yrs Sex: Female : 1935 Arrival Date: 11/10/2024 Time: 21:22 Bed 24 Private MD: ED Physician Atif Dodson HPI: 11/10 21:48 This 89 yrs old Female presents to ER via Unassigned with complaints of Urinary rn Problem, Altered Mental Status. 21:48 Family member reports altered mental status and confusion that waxes and wanes for the rn last few days. Noticed it on Friday. Went to urgent care and was told was dehydrated but they could not obtain a urine sample to test for UTI. Urinalysis sent at skilled nursing but results still not back and patient is still confused so daughter brought her in for evaluation. Patient denies focal pain. No focal neurological deficit. No vision changes or speech changes or focal weakness. group home staff reported abdomen looked more bloated than normal. Patient denies abdominal pain or vomiting or diarrhea.. Historical: - Allergies: 21:50 PENICILLINS; lg3 21:50 Sulfa (Sulfonamide Antibiotics); lg3 - PMHx: 21:50 Hypertensive disorder; Hypothyroidism; TIA (Hypothyroidism); Dementia; lg3 - PSHx: 21:50 Unable to Obtain; lg3 - Immunization history:: Adult Immunizations up to date. - Infectious Disease History:: Denies. - Family history:: not pertinent. - Social history:: Smoking status: Patient denies any tobacco usage or history of. Patient/guardian denies using alcohol, street drugs. - Hospitalizations: : No recent hospitalization is reported. ROS: 21:48 Constitutional: Negative for fever, chills, and weight loss, Cardiovascular: Negative rn for chest pain, palpitations, and edema, Respiratory: Negative for shortness of breath, cough, wheezing, and pleuritic chest pain, Abdomen/GI: Negative for abdominal pain, nausea, vomiting, diarrhea, and constipation, : Negative for injury, bleeding, discharge, and swelling, MS/Extremity: Negative for injury and deformity, Neuro: Negative for headache, weakness, numbness, tingling, and seizure, Exam: 21:48 Constitutional: This is a well developed, well nourished patient who is awake, alert, rn and in no acute distress. Head/Face: Normocephalic, atraumatic. ENT: Dry mucous membranes Cardiovascular: Regular rate and rhythm. No pulse deficits. Respiratory: No increased work of breathing, no retractions or nasal flaring. Abdomen/GI: Soft, non-tender, tympanitic Neuro: Awake and alert, GCS 15, 5 out of 5 strength throughout and sensation intact. Normal speech. Oriented to person but not time or place 11/11 04:18 ECG was reviewed by the Attending Physician. rn Vital Signs: 11/10 21:48 BP 192 / 94; Pulse 81; Resp 17 S; Temp 98.3(O); Pulse Ox 96% on R/A; Weight 68.04 kg lg3 (R); Height 5 ft. 3 in. (R); Pain 0/10; 21:49 BP 174 / 95; Pulse 87; Resp 17; Pulse Ox 96% ; jj7 22:00 BP 175 / 83; Pulse 74; Resp 17; Pulse Ox 99% on R/A; al5 21:48 Body Mass Index 26.57 (68.04 kg, 160.02 cm) lg3 21:48 Pain Scale: Adult lg3 NIH Stroke Scale Scores: 21:50 NIHSS Score: 2 lg3 21:51 NIHSS Score: 2 rn MDM: 21:34 Medical Screening Exam initiated rn 11/11 01:24 Differential Diagnosis: CVA, electrolyte abnormality, hypoglycemia, intracranial bleed, rn volume depletion. Data reviewed: vital signs, nurses notes, lab test result(s), EKG, radiologic studies, CT scan, and as a result, I will admit patient. Consideration of Admission/Observation Patient was admitted/placed on observation. Escalation of care including admission/observation considered. Independent interpretation of the following test(s) in the Emergency Department CT Scan: My interpretation is CT head images negative for acute hemorrhage per my interpretation. Test considered but Not performed: MRI: MRI not available overnight. Care significantly affected by the following chronic conditions: Hypertension, Previous CVA. Counseling: I had a detailed discussion with the patient and/or guardian regarding the historical points, exam findings, and any diagnostic results supporting the discharge/admit diagnosis, lab results, radiology results, the need for further work-up and treatment in the hospital. Response to treatment: the patient's symptoms have mildly improved after treatment, and as a result, I will admit patient. ED course: CT shows possible subacute infarct. Patient is NIH 2 but only because of orientation. Daughter describes symptoms of neglect but I am not seeing any here. Symptoms are at least 3 days old, will admit here for further care and evaluation.. 11/10 21:36 Order name: UA Rfx Familia Cult if indicated; Complete Time: 23:29 rn 11/10 21:46 Order name: CBC with Diff; Complete Time: 23:29 rn 11/10 21:46 Order name: CMP; Complete Time: 23:29 rn 11/10 21:46 Order name: Lipase; Complete Time: 23:29 rn 11/11 02:06 Order name: CBC with Automated Diff EDNM 11/11 02:06 Order name: CBC with Automated Diff EDNM 11/11 02:06 Order name: Comprehensive Metabolic Panel EDNM 11/11 02:06 Order name: Comprehensive Metabolic Panel [facility] 11/10 21:46 Order name: CT Head Brain wo Cont rn 11/10 21:48 Order name: CT Abd/Pelvis - IV Contrast Only rn 11/11 09:39 Order name: US EDNM 11/10 21:46 Order name: IV Saline Lock; Complete Time: 22:18 rn 11/10 21:46 Order name: Labs collected and sent; Complete Time: 22:18 rn 11/10 21:46 Order name: EKG - Nurse/Tech; Complete Time: 22:18 11/10 21:46 Order name: Cardiac monitoring; Complete Time: 22:18 rn 11/10 21:46 Order name: O2 Sat Monitoring; Complete Time: 22:19 rn EC:18 Rate is 75 beats/min. Rhythm is regular. QRS [place] is Normal. AL interval is normal. QRS rn interval is normal. QT interval is normal. No Q waves. T waves are Normal. No ST changes noted. Clinical impression: Normal ECG. Interpreted by me. Reviewed by me. Administered Medications: 11/10 22:18 Drug: NS 0.9% IV 500 ml 500 ml IV at 1 bolus once; to be given as a bolus over 30 jj7 minutes Volume: 500 ml; Route: IV; Rate: 1 bolus; Site: left antecubital; Disposition Summary: 11/11/24 01:27 Hospitalization Ordered Notes: Hospitalization Status: Inpatient Admission rn Provider: Vinny Ulloa rn Condition: Stable rn Problem: new rn Symptoms: have improved rn Bed/Room Type: Standard rn Location: Telemetry/MedSurg (Inpatient)(11/11/24 10:32) 6 Room Assignment: [facility](11/11/24 10:32) 6 Diagnosis - Cerebral infarction, unspecified rn Forms: - Medication Reconciliation Form rn - SBAR form rn - Leadership Thank You Letter rn NIH Stroke Scale - NIH Stroke Score Date: 11/10/2024 Time: 21:50 Total Score = 2 10. Dysarthria (speech clarity - read or repeat words) - 0(Normal) 11. Extinction and Inattention (visual/tactile/auditory/spatial/personal) - 0(No abnormality) 1a. Level of Consciousness (LOC) - 0(Alert) 1b. Level of Consciousness (LOC) (Month \T\ Age) - 2(Neither) 1c. LOC Commands (Open \T\ Closes Eyes/Application Administrator) - 0(Both) 2. Best Gaze (Lateral Gaze Paresis) - 0(Normal) 3. Visual Field Loss - 0(No visual loss) 4. Facial Palsy - 0(Normal) 5a. Left Arm: Motor (10-second hold) - 0(No drift) 5b. Right Arm: Motor (10-second hold) - 0(No drift) 6a. Left Leg: Motor (5-second hold - always test supine) - 0(No drift) 6b. Right Leg: Motor (5-second hold - always test supine) - 0(No drift) 7. Limb Ataxia (finger/nose \T\ heel/parks - test with eyes open) - 0(Absent) 8. Sensory Loss (pinprick arms/legs/face) - 0(Normal) 9. Best Language: Aphasia (description/naming/reading) - 0(No aphasia) Initials: lg3 NIH Stroke Scale - NIH Stroke Score Date: 11/10/2024 Time: 21:51 Total Score = 2 10. Dysarthria (speech clarity - read or repeat words) - 0(Normal) 11. Extinction and Inattention (visual/tactile/auditory/spatial/personal) - 0(No abnormality) 1a. Level of Consciousness (LOC) - 0(Alert) 1b. Level of Consciousness (LOC) (Month \T\ Age) - 2(Neither) 1c. LOC Commands (Open \T\ Closes Eyes/Application Administrator) - 0(Both) 2. Best Gaze (Lateral Gaze Paresis) - 0(Normal) 3. Visual Field Loss - 0(No visual loss) 4. Facial Palsy - 0(Normal) 5a. Left Arm: Motor (10-second hold) - 0(No drift) 5b. Right Arm: Motor (10-second hold) - 0(No drift) 6a. Left Leg: Motor (5-second hold - always test supine) - 0(No drift) 6b. Right Leg: Motor (5-second hold - always test supine) - 0(No drift) 7. Limb Ataxia (finger/nose \T\ heel/parks - test with eyes open) - 0(Absent) 8. Sensory Loss (pinprick arms/legs/face) - 0(Normal) 9. Best Language: Aphasia (description/naming/reading) - 0(No aphasia) Initials: rn Signatures: Dispatcher [employer] EDMS Atif Dodson MD MD rn Blanchard, Shelby, RN RN ss Grace Mosley RN RN lg3 Marianna Nails RN RN jj7 Shahana Estevez6 Ginger Ma Corrections: (The following items were deleted from the chart) 21:47 21:46 Head Brain Wo Cont+CT.RAD.BRZ ordered. EDNM EDNM 11/11 01:32 01:27 Telemetry/MedSurg (Inpatient) rn vk 01:32 01:27 daysi kyle 09:58 01:32 [facility] ER HOLD vk bc6 09:58 01:32 ERHOLD- vk bc6 10:00 09:58 Telemetry/MedSurg (Inpatient) bc6 bc6 10:00 09:58 212 bc6 bc6 10:21 10:00 bc6 ss 10:32 10:00 [facility] ER HOLD bc6 bc6 10:32 10:21 ERHOLD- ss bc6
--- NOTE | 2024-11-11 01:28 | ER ---
Nurse's Notes [facility] Name: Nerissa Batista Age: 89 yrs Sex: Female : 1935 Arrival Date: 11/10/2024 Time: 21:22 Bed 24 Private MD: Diagnosis: Cerebral infarction, unspecified Presentation: 11/10 21:48 Chief complaint: Patient's son or daughter states: increased confusion and weakness X3 lg3 days. Coronavirus screen: Client denies travel out of the [place] in the last 14 days. At this time, the client does not indicate any symptoms associated with coronavirus-19. Ebola Screen: No symptoms or risks identified at this time. Initial Sepsis Screen: Does the patient meet any 2 criteria? No. Patient's initial sepsis screen is negative. Does the patient have a suspected source of infection? No. Patient's initial sepsis screen is negative. Risk Assessment: Do you want to hurt yourself or someone else? Patient reports no desire to harm self or others. Onset of symptoms was November 07, 2024. 21:48 Method Of Arrival: Wheelchair lg3 21:48 Acuity: LIN 3 lg3 Triage Assessment: 21:50 General: Appears in no apparent distress. comfortable, Behavior is calm, cooperative. lg3 Pain: Denies pain. EENT: No deficits noted. No signs and/or symptoms were reported regarding the EENT system. Neuro: Gunter Agitation-Sedation Scale (RASS): 0 - Alert and Calm Level of Consciousness is awake, obeys commands, confused, Oriented to person, Jukebox Checker are equal bilaterally Weakness Speech is normal, Facial symmetry appears normal, Pupils are PERRLA, Intact. Cardiovascular: No deficits noted. Denies chest pain, shortness of breath, Capillary refill is > 3 seconds Clubbing of nail beds is absent JVD is absent Patient's skin is warm and dry. Respiratory: No deficits noted. Airway is patent Respiratory effort is even, unlabored, Respiratory pattern is regular, symmetrical. GI: No deficits noted. No signs and/or symptoms were reported involving the gastrointestinal system. : No signs and/or symptoms were reported regarding the genitourinary system. Derm: No deficits noted. No signs and/or symptoms reported regarding the dermatologic system. Skin is intact, is healthy with good turgor, Skin is dry, Skin is normal, Skin temperature is warm. Musculoskeletal: Circulation, motion, and sensation intact. Range of motion: intact in all extremities, Parent/caregiver report the patient having generalized weakness. Historical: - Allergies: 21:50 PENICILLINS; lg3 21:50 Sulfa (Sulfonamide Antibiotics); lg3 - PMHx: 21:50 Hypertensive disorder; Hypothyroidism; TIA (Hypothyroidism); Dementia; lg3 - PSHx: 21:50 Unable to Obtain; lg3 - Immunization history:: Adult Immunizations up to date. - Infectious Disease History:: Denies. - Family history:: not pertinent. - Social history:: Smoking status: Patient denies any tobacco usage or history of. Patient/guardian denies using alcohol, street drugs. - Hospitalizations: : No recent hospitalization is reported. Screenin:19 Abuse screen: Denies threats or abuse. Nutritional screening: No deficits noted. jj7 Tuberculosis screening: No symptoms or risk factors identified. 11/11 07:30 [facility] ED Fall Risk Assessment (Adult) History of falling in the last 3 months, db including since admission No falls in past 3 months (0 pts) Confusion or Disorientation Yes (5 pts) Intoxicated or Sedated No (0 pts) Impaired Gait Yes (1 pt) Mobility Assist Device Used Yes (1 pt) Altered Elimination No (0 pt) Score/Fall Risk Level 3 or more points = High Risk Oriented to surroundings, Maintained a safe environment, Hourly rounding (assess needs \T\ fall precautionary measures) done, Utilized family, sitter, or virtual boiler tester as indicated. Assessment: 11/10 21:45 General: Appears in no apparent distress. comfortable, Behavior is calm, cooperative. jj7 Neuro: Level of Consciousness is awake, alert, confused, Oriented to person, Speech is normal. Cardiovascular: No deficits noted. Respiratory: No deficits noted. GI: No deficits noted. : Parent/caregiver report the patient having WENT TO URGENT CARE TODAY AND GAVE URINE SAMPLE. STATES THEY HAVEN'T GOTTEN RESULTS. 11/11 07:30 Reassessment: SEE [facility] FOR CONTINUED DOCUMENTATION. db Vital Signs: 11/10 21:48 BP 192 / 94; Pulse 81; Resp 17 S; Temp 98.3(O); Pulse Ox 96% on R/A; Weight 68.04 kg lg3 (R); Height 5 ft. 3 in. (R); Pain 0/10; 21:49 BP 174 / 95; Pulse 87; Resp 17; Pulse Ox 96% ; jj7 22:00 BP 175 / 83; Pulse 74; Resp 17; Pulse Ox 99% on R/A; al5 21:48 Body Mass Index 26.57 (68.04 kg, 160.02 cm) lg3 21:48 Pain Scale: Adult lg3 NIH Stroke Scale Scores: 21:50 NIHSS Score: 2 lg3 21:51 NIHSS Score: 2 hospitality internship Course: 21:24 Patient arrived in ED. im 21:34 Atif Dodson MD is Attending Physician. rn 21:45 Patient has correct armband on for positive identification. Bed in low position. Call jj7 light in reach. Side rails up X2. Provided Education on: USE OF CALL PEPPER. Warm blanket given. 21:45 Inserted saline lock: 20 gauge in left antecubital area, using aseptic technique. Blood jj7 collected. Flushed with 10 mL NS. 21:50 Triage completed. lg3 21:50 Arm band placed on right wrist. lg3 22:10 Marianna Nails, [employer] is Primary Nurse. jj7 22:18 CBC with Diff Sent. jj7 22:18 CMP Sent. jj7 22:18 Lipase Sent. jj7 23:00 CT Head Brain wo Cont In Process Unspecified. EDMS 23:04 CT Abd/Pelvis - IV Contrast Only In Process Unspecified. EDMS 11/11 01:26 Vinny Ulloa MD is Hospitalizing Provider. rn 07:30 No provider procedures requiring assistance completed. Patient admitted, IV remains in db place. Administered Medications: 11/10 22:18 Drug: NS 0.9% IV 500 ml 500 ml IV at 1 bolus once; to be given as a bolus over 30 jj7 minutes Volume: 500 ml; Route: IV; Rate: 1 bolus; Site: left antecubital; Medication: 21:45 VIS not applicable for this client. jj7 Outcome: 11/11 01:27 Decision to Hospitalize by Provider. rn 07:30 Admitted to ER Hold. Please see [facility] for further documentation. db 07:30 Condition: stable 07:30 Instructed on the need for admit, 11:08 Patient left the ED. bc6 NIH Stroke Scale - NIH Stroke Score Date: 11/10/2024 Time: 21:50 Total Score = 2 10. Dysarthria (speech clarity - read or repeat words) - 0(Normal) 11. Extinction and Inattention (visual/tactile/auditory/spatial/personal) - 0(No abnormality) 1a. Level of Consciousness (LOC) - 0(Alert) 1b. Level of Consciousness (LOC) (Month \T\ Age) - 2(Neither) 1c. LOC Commands (Open \T\ Closes Eyes/Meat Smoker) - 0(Both) 2. Best Gaze (Lateral Gaze Paresis) - 0(Normal) 3. Visual Field Loss - 0(No visual loss) 4. Facial Palsy - 0(Normal) 5a. Left Arm: Motor (10-second hold) - 0(No drift) 5b. Right Arm: Motor (10-second hold) - 0(No drift) 6a. Left Leg: Motor (5-second hold - always test supine) - 0(No drift) 6b. Right Leg: Motor (5-second hold - always test supine) - 0(No drift) 7. Limb Ataxia (finger/nose \T\ heel/parks - test with eyes open) - 0(Absent) 8. Sensory Loss (pinprick arms/legs/face) - 0(Normal) 9. Best Language: Aphasia (description/naming/reading) - 0(No aphasia) Initials: lg3 NIH Stroke Scale - NIH Stroke Score Date: 11/10/2024 Time: 21:51 Total Score = 2 10. Dysarthria (speech clarity - read or repeat words) - 0(Normal) 11. Extinction and Inattention (visual/tactile/auditory/spatial/personal) - 0(No abnormality) 1a. Level of Consciousness (LOC) - 0(Alert) 1b. Level of Consciousness (LOC) (Month \T\ Age) - 2(Neither) 1c. LOC Commands (Open \T\ Closes Eyes/Meat Smoker) - 0(Both) 2. Best Gaze (Lateral Gaze Paresis) - 0(Normal) 3. Visual Field Loss - 0(No visual loss) 4. Facial Palsy - 0(Normal) 5a. Left Arm: Motor (10-second hold) - 0(No drift) 5b. Right Arm: Motor (10-second hold) - 0(No drift) 6a. Left Leg: Motor (5-second hold - always test supine) - 0(No drift) 6b. Right Leg: Motor (5-second hold - always test supine) - 0(No drift) 7. Limb Ataxia (finger/nose \T\ heel/parks - test with eyes open) - 0(Absent) 8. Sensory Loss (pinprick arms/legs/face) - 0(Normal) 9. Best Language: Aphasia (description/naming/reading) - 0(No aphasia) Initials: rn Signatures: Dispatcher [employer] EDMS Atif Dodson MD MD rn Able, Grace RN RN lg3 Marianna Nails RN RN jj7 Matilda Poole, RN RN db Shahana Estevez6 Margarita Contreras Amanda, RN RN al5
--- NOTE | 2024-11-11 02:01 | P.HP ---
Certification for Inpatient Patient admitted to: Inpatient With expected LOS: >2 Midnights Practitioner: I am a practitioner with admitting privileges, knowledge of patient current condition, hospital course, and medical plan of care. Services: Services provided to patient in accordance with Admission requirements found in Title 42 Section 412.3 of the Code of Federal Regulations Patient History Date of Service: 11/11/24 Reason for admission: AMS History of Present Illness: 89 yrs old Female with past medical history of hypertension, hypothyroidism, history of CVA, TIA, dementia was brought to ER with altered mental status. Patient is a poor historian hence most of the history is obtained from the family as well as talking to the ER doctor. Family member reports altered mental status and confusion that waxes and wanes for the last few days. Noticed it on Friday. Went to urgent care and was told was dehydrated but they could not obtain a urine sample to test for UTI. [facility]inalysis sent at [facility] but results still not back and patient is still confused so daughter brought her in for evaluation. Patient denies focal pain. No focal neurological deficit. No vision changes or speech changes or focal weakness. Patient denies abdominal pain or vomiting or diarrhea.. Patient was assessed in the ER and is admitted for further management of acute encephalopathy - Past Medical/Surgical History Past Medical History: Reviewed- Non-Contributory -: Hypertension, hyperlipidemia, dementia Past Surgical History: Reviewed- Non-Contributory -: No significant past surgical history - Family History Family History: Reviewed- Non-Contributory - Social History Smoking Status: Never smoker Review of Systems 10-point ROS is otherwise unremarkable Physical Examination - Vital Signs Temperature: 97.8 F Blood Pressure: 136/70 Pulse: 78 Respirations: 18 Pulse Ox (%): 94 - Physical Exam General: Alert, In no apparent distress, Confused HEENT: Atraumatic, Normocephalic Neck: Supple Respiratory: Clear to auscultation bilaterally, Normal air movement Cardiovascular: Regular rate/rhythm, Normal S1 S2 Capillary refill: <2 Seconds Gastrointestinal: Soft and benign, W/out hepatosplenomegaly Musculoskeletal: No clubbing, No swelling Integumentary: No rashes Neurological: Other (Alert awake nonfocal, confused) Lymphatics: No axilla or inguinal lymphadenopathy - Studies Laboratory Data (last 24 hrs) 11/10/24 11/10/24 22:02 22:02 WBC 7.70 Hgb 12.1 Hct 35.7 L Plt Count 167 Sodium 131 L Potassium 4.4 BUN 27 H Creatinine 1.09 H Glucose 106 Total Bilirubin 0.5 AST 16 ALT 17 Alkaline Phosphatase 58 Lipase 78 H Assessment and Plan - Plan Acute encephalopathy ischemic Monitor neuro Vital signs Neurology evaluation CVA/TIA No focal weakness Started on aspirin and statin, Plavix CT CTA findings noted CT showing moderate size acute/subacute infarct in mid/posterior right temporal lobe MRI brain ordered Monitor neuro vital signs Monitor under telemetry Will get an echocardiogram Severe left mastoiditis Started on IV antibiotic Monitor closely Hyponatremia Electrolytes monitor and replace accordingly Hypertension Antihypertensives titrated Continue home medications and titrate as needed Hyperlipidemia Continue statin BABAR on CKD stage II Monitor renal parameters Electrolytes monitor and replace accordingly GI/DVT prophylaxis Advanced directive full code Discharge Plan: [facility] Plan to discharge in: 48 Hours - Advance Directives Does patient have a Living Will: No Does patient have a Durable POA for Healthcare: No - Code Status/Comfort Care Code Status: Full Code Time Spent Managing Pts Care (In Minutes): 48
[2024-11-11] MEDS: NA CHLORIDE 0.9% 1,000 ML IV SCH (04:00)
[2024-11-11 04:30] VITALS: BMI 26.4
[2024-11-11] MEDS ORDERED: NA CHLORIDE 0.9% 1,000 ML ONE (04:39)
[2024-11-11] MEDS ORDERED: CLOPIDOGREL 75 MG TABLET ONE (08:26)
[2024-11-11] MEDS ORDERED: Levofloxacin 750mg IV 750 MG/150 ML BAG IV ONE (08:26)
[2024-11-11] MEDS ORDERED: ASPIRIN EC 81 MG TAB PO ONE (08:26)
[2024-11-11] MEDS: CLOPIDOGREL 75 MG TABLET PO SCH (09:00)
[2024-11-11] MEDS: ASPIRIN EC 81 MG TAB PO SCH (09:00)
[2024-11-11] MEDS: Levofloxacin 750mg IV 750 MG/150 ML BAG IV SCH (09:30)
--- NOTE | 2024-11-11 09:39 | RAD REPORT ---
EXAMINATION: US CAROTID DUPLEX CLINICAL INDICATION: CVA TECHNIQUE: Real-time grayscale, color flow and spectral Doppler sonographic images were obtained of t he extracranial carotid system using a linear transducer. COMPARISON: 2023 FINDINGS: The velocity of the right internal carotid artery 79 cm/s The right ICA/CCA ratio 1.6 The velocity left internal carotid artery 112 cm/s The left ICA/CCA ratio normal Marked plaque right carotid bulb. Post stenosis velocity 11 cm/s. Mild plaque left carotid arteries.. Methods for NASCET criteria: mild stenosis, 0% to 49%; moderate, 50% to 69%; severe stenosis, 70% to 99% IMPRESSION: Severe stenosis right carotid bulb. Magnetic resonance angiogram recommended for further evaluation
[2024-11-11] MEDS ORDERED: ACETAMINOPHEN 325 MG TABLET ONE (10:20)
[2024-11-11] MEDS: ACETAMINOPHEN 325 MG TABLET PO PRN (10:27)
--- NOTE | 2024-11-11 12:05 | RAD REPORT ---
EXAMINATION: MRI BRAIN WITHOUT CONTRAST CLINICAL INDICATION: CVA TECHNIQUE: Multiplanar multisequence MR images of the brain were obtained without intravenous contras t. Unless otherwise specified, incidental findings do not require dedicated imaging follow-up. COMPARISON: November 10, [address] FINDINGS: Diffusion weighted/ADC mapping reveals 7.7 cm acute infarct right occipital lobe. .Ventricles are normal caliber. No extra-axial fluid collection. No fluid within the sinuses/mastoid seen IMPRESSION: 7.7 cm acute infarct right occipital lobe
[2024-11-11] MEDS: VANCOMYCIN 1.25 GM in NA CHLORIDE 0.9% 250 ML IVPB SCH (12:41)
--- NOTE | 2024-11-11 13:15 | ECHO ---
HEIGHT: 5 ft 3 in WEIGHT: 149 lb 0 oz DATE OF STUDY: 11/11/[address]: Luis Armando Ulloa DO 2-DIMENSIONAL: YES M.MODE: YES DOPPLER: YES COLOR FLOW: YES TDS: PORTABLE: YES DEFINITY: BUBBLE STUDY: DIAGNOSIS: ALTERED MENTAL STATUS CARDIAC HISTORY: CATHERIZATION: SURGERY: PROSTHETIC VALVE: PACEMAKER: MEASUREMENTS (cm) DIASTOLIC (NORMALS) SYSTOLIC (NORMALS) IVSd 1.0 (0.6-1.2) LA Diam 4.2 (1.9-4.0) LVEF 60-65% LVIDd 4.3 (3.5-5.7) LVIDs 2.5 (2.0-3.5) %FS 41% LVPWd 1.1 (0.6-1.2) Ao Diam 2.7 (2.0-3.7) 2 DIMENSIONAL ASSESSMENT: RIGHT ATRIUM: NORMAL LEFT ATRIUM: NORMAL RIGHT VENTRICLE: NORMAL LEFT VENTRICLE: NORMAL TRICUSPID VALVE: TRACE TRICUSPID REGURGITATION MITRAL VALVE: TRACE MITRAL REGURGITATION PULMONIC VALVE: NORMAL AORTIC VALVE: NORMAL, TRACE AORTIC REGURGITATION PERICARDIAL EFFUSION: NONE AORTIC ROOT: NORMAL LEFT VENTRICULAR WALL MOTION: NORMAL DOPPLER/COLOR FLOW: DIASTOLIC DYSFUNCTION COMMENTS: 1. NORMAL LEFT VENTRICULAR SYSTOLIC FUNCTION, EJECTION FRACTION 60-65%, NORMAL WALL MOTION 2. DIASTOLIC DYSFUNCTION TECHNOLOGIST: DEONTE DAVID
--- NOTE | 2024-11-11 14:10 | P.PN ---
Date of Service: 11/11/24 Patient has an acute stroke, 7.7 cm right occipital lobe infarct. Neurology, PT/OT/HIGH SPEED WARPER TENDER have been ordered. Case discussed with Dr. Heart from neurology. Patient will be on dual antiplatelet therapy and high intensity statin. She is also pending evaluation by ENT for severe mastoiditis.
[2024-11-11] MEDS: ATORVASTATIN 40 MG TAB PO SCH (20:18)
[2024-11-12 04:31] LABS: Absolute Lymphocytes (CBC) 1.1 K/uL (0.7-4.9); Hematocrit 37.0 % (36.0-45.0); Hemoglobin 12.7 g/dL (12.0-15.0); MCH 31.6 pg (27.0-35.0); MCHC 34.3 g/dL (32.0-36.0); MCV 92.1 fL (80-100); MPV 6.7 fL (7.6-11.3); Nucleated RBC Absolute Count 0.0 (0-0); Nucleated Red Blood Cells % 0.0 % (0-0); RBC Red Blood Cell Count 4.02 M/uL (3.86-4.86); White Blood Count 6.90 thou/uL (4.3-10.9)
[2024-11-12 04:49] LABS: ALT/SGPT 21.0 U/L (13-56); AST/SGOT 19.0 U/L (15-37); Albumin 2.9 g/dL (3.4-5.0); Albumin/Globulin Ratio 0.8 (1.1-1.8); Alkaline Phosphatase 61.0 U/L (45-117); Anion Gap 6.2 mEq/L (5.0-15.0); BUN Blood Urea Nitrogen 21.0 mg/dL (7-18); Globulin 3.5 g/dL (2.3-3.5); Glucose Level 126.0 mg/dL (74-106); HDL Cholesterol 84.0 mg/dL (40-60); LDL Cholesterol, Calculated 161.0 mg/dL (<130); LDL Cholesterol,Calc NonReport 161.0; Potassium 4.2 mEq/L (3.5-5.1)
[2024-11-12] MEDS: HYDRALAZINE HCL 20 MG/ML VIAL IV PRN (05:41)
[2024-11-12] MEDS: MEMANTINE HCL 10 MG TABLET PO SCH (07:44)
[2024-11-12] MEDS: GABAPENTIN 100 MG CAP PO SCH (07:44)
[2024-11-12] MEDS: LABETALOL 20 MG/4ML SYRINGE IV PRN (08:24)
[2024-11-12] MEDS ORDERED: CLOPIDOGREL 75 MG TABLET PO SCH (09:00)
--- NOTE | 2024-11-12 17:04 | P.PN ---
Subjective Date of Service: 11/12/24 Chief Complaint: AMS Subjective: Other (Patient appeared appropriate at this morning. Unfortunately, in the afternoon, she appeared more confused. A repeat CT head was ordered to rule out hemorrhagic transformation CVA) Physical Examination - Vital Signs Temperature: 97.5 F Blood Pressure: 133/63 Pulse: 88 Respirations: 16 Pulse Ox (%): 99 - Physical Exam General: In no apparent distress, Cooperative, Confused HEENT: Atraumatic, Normocephalic Respiratory: Clear to auscultation bilaterally, Normal air movement Cardiovascular: No edema, Normal pulses, Regular rate/rhythm, Normal S1 S2 Neurological: Other (Disoriented), Dementia Assessment And Plan - Plan Assessment Patient is a 89-year-old female with a known past medical history of dementia. She lives in an assisted living facility. She presented to the hospital with acute encephalopathy. 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 She is currently on dual antiplatelet therapy and high intensity statin and on permissive hypertension protocol. Acute CVA Severe right carotid bulb stenosis Acute metabolic encephalopathy Severe mastoiditis as per CT head Dementia Plan: CT head given worsening confusion and speech Continue permissive hypertension As needed IV antihypertensive on board Continue dual antiplatelet therapy and high intensity statin PT/OT/DIRECTOR OF STRATE[employer]IC MARKETING while in house Social service consulted for placement. Patient was previously living in an assisted living facility but may not be able to perform as well Of note, I have spoken with Dr. Villela regarding her CT finding of severe mastoiditis. Looks more like a mass with some fluid collection. Okay to narrow antibiotics to cefdinir 300 mg twice daily. She will need to follow-up with Dr. Villela after she recovers from her stroke.
--- NOTE | 2024-11-12 17:51 | RAD REPORT ---
EXAM: CT brain without contrast HISTORY: CVA COMPARISON: November 10, 2024 TECHNIQUE: Multiple contiguous axial images were obtained and a CT of the brain without contrast. Sagittal and coronal reformats were performed. Automated exposure control, adjustment of the mA and/or kV according to patient size, and/or itera tive reconstruction. Unless otherwise specified, incidental findings do not require dedicated imaging follow-u FINDINGS: Moderate to large early subacute infarct right cerebrum. No evidence of hemorrhagic transformation. No shift of midline structures. No acute change since prior exam IMPRESSION: Moderate to large early subacute infarct right cerebrum. No evidence of hemorrhagic transformation Patient's nurse Susu and notified at 5:47 PM November 12, 2024
[2024-11-12] MEDS: CEFDINIR 300 MG CAP PO SCH (21:03)
[2024-11-12] MEDS: DONEPEZIL HCL 5 MG TAB PO SCH (21:04)
[2024-11-13] MEDS: LEVOTHYROXINE SOD 0.075 MG TAB PO SCH (06:11)
[2024-11-13 07:11] LABS: Absolute Lymphocytes (CBC) 1.2 K/uL (0.7-4.9); Hematocrit 36.2 % (36.0-45.0); Hemoglobin 12.4 g/dL (12.0-15.0); MCH 31.9 pg (27.0-35.0); MCHC 34.2 g/dL (32.0-36.0); MCV 93.1 fL (80-100); MPV 7.1 fL (7.6-11.3); Nucleated RBC Absolute Count 0.0 (0-0); Nucleated Red Blood Cells % 0.1 % (0-0); RBC Red Blood Cell Count 3.89 M/uL (3.86-4.86); White Blood Count 8.10 thou/uL (4.3-10.9)
[2024-11-13 07:45] LABS: Anion Gap 11.0 mEq/L (5.0-15.0); BUN Blood Urea Nitrogen 25.0 mg/dL (7-18); Glucose Level 110.0 mg/dL (74-106)
[2024-11-13 07:48] LABS: Potassium 5.0 mEq/L (3.5-5.1)
[2024-11-13 07:49] LABS: Magnesium 2.3 mg/dL (1.6-2.4)
--- NOTE | 2024-11-13 08:57 | CON ---
Date of Consultation: 11/12/2024 Chief Complaint: Hearing loss. History Of Present Illness: The patient is a pleasant 89-year-old female, who was admitted on 2024 for acute CVA/TIA, acute encephalopathy, ischemic, and it was discovered on her MRI and CT of th e head that the patient had, potentially mastoid cavity fluid suggesting an acute mastoiditis. The p atient was started on levofloxacin, vancomycin, and I was consulted for further evaluation. Upon arr ival to bedside, the patient was happily eating breakfast in no acute distress. She states that she has chronic gradual bilateral hearing loss, but currently denies ear pain, ear drainage, tinnitus. S he denies all other ENT complaints today. Past Medical History: Hypertension, hyperlipidemia, dementia. Past Surgical History: Denies. Social History: Denies tobacco or alcohol. Review of Systems: Constitutional: Negative for lethargy, fever, chills. Head: Negative for headache or sinus pressure. Eyes: Negative for drainage or double vision/blurred vision. Ears: Positive for chronic bilateral hearing loss, but negative for otalgia, otorrhea, tinnitus. Nose: Negative for nasal congestion, rhinorrhea, postnasal drip. Oral Cavity: Negative for sore throat, difficulty swallowing. Physical Examination: Vital Signs: Stable. General: The patient is awake, alert, and oriented to person, place, and time. She is in no acute d istress. Head: Atraumatic, normocephalic. Eyes: PERRLA/EOMI. Ears: Moderate right ear cerumen, but tympanic membrane intact. No evidence of perforation, middle ear effusion. Malleus ossicle: It is normal anatomical position. Left ear, mild to moderate atelec tasis of the tympanic membrane, but malleus ossicle: It is normal position. No evidence of middle e ar effusion or tympanic membrane perforation. There is no erythema or edema of the skin overlying bi lateral mastoid cavities and there is no tenderness to palpation over the temporal bones. Nose: Moist intranasal mucosa. Midline septum. Oral Cavity: Midline uvula. No erythema or edema of the posterior oropharynx. No evidence of exuda te or postnasal drip. Neck: Supple. Trachea midline. Imaging Data: MRI of the brain without contrast and CT of the head with contrast demonstrates possib ly a polypoid lesion located in the left epitympanic recess, where the pars flaccida tympanic membran e would be. This could possibly be cholesteatoma versus polyp versus granulation tissue versus mucos al inflammation. It appears that it extends into the left mastoid cavity and this could also be gran ulation tissue versus cholesteatoma and effusion. The incus and malleus are normal appearing with no evidence of erosion and there is no evidence of coalescence in the left mastoid cavity. Right masto id cavity and middle ear space are normal. Laboratory Data: White blood cell count is 7.70, hemoglobin 12.1, hematocrit 35.7, and platelets are 167. Diagnoses: 1. Chronic left mastoiditis. Possible etiologies are cholesteatoma extending from the left epitympan ic recess, through the antrum, and into the left mastoid cavity with effusion, polyp, and/or granulat ion tissue and inflamed mucosa are also possible etiologies. 2. Chronic bilateral hearing loss. Plan: 1. Recommend deescalating IV antibiotic therapy and may place on cefdinir 300 mg b.i.d. for 10 days. 2. Recommend removing wax under the microscope in my office from the right ear and further middle ear examination with microscope. 3. Needs dedicated CT of the temporal bones without contrast and I can do this in my office when the patient is discharged. 4. Recommend the patient be seen in my office in approximately 2 weeks post discharge. Thank you for this interesting consultation. JOSÉ/LILIANA Voice ID: [id number] Report ID: [id number]
--- NOTE | 2024-11-13 10:52 | P.PN ---
Subjective Date of Service: 11/13/24 Chief Complaint: AMS Subjective: Improving (No acute events overnight. CT head without signs of hemorrhagic stroke.) Physical Examination - Vital Signs Temperature: 97.4 F Blood Pressure: 153/64 Pulse: 64 Respirations: 18 Pulse Ox (%): 100 - Physical Exam General: In no apparent distress, Cooperative HEENT: Atraumatic, Normocephalic Respiratory: Other (Breathing is not labored) Neurological: Normal speech, Dementia Assessment And Plan - Plan Assessment Patient is a 89-year-old female with a known past medical history of dementia. She lives in an assisted living facility. She presented to the hospital with acute encephalopathy. 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 She is currently on dual antiplatelet therapy and high intensity statin and on permissive hypertension protocol. Repeat CT head was done on 11/11 due to concern for confusion and aphasia. No signs of worsening or hemorrhagic stroke. Patient is now medically cleared pending transfer to SNF versus rehab Acute CVA Severe right carotid bulb stenosis Acute metabolic encephalopathy Severe mastoiditis as per CT head Dementia Plan: Patient is medically cleared pending transfer to a SNF versus rehab Repeat CT head did not show any signs of hemorrhagic stroke. Resuming home antihypertensive regimen, losartan/HCTZ Continue dual antiplatelet therapy and high intensity statin PT/OT/CHILDREN'S MINISTER while in house Social service consulted for placement. Patient was previously living in an assisted living facility but may not be able to perform as well at this time Of note, I have spoken with Dr. Villela regarding her CT finding of severe mastoiditis. Looks more like a mass with some fluid collection. Okay to narrow antibiotics to cefdinir 300 mg twice daily. She will need to follow-up with Dr. Villela after she recovers from her stroke.
[2024-11-13 23:35] VITALS: O2SAT 93
[2024-11-14 06:56] LABS: Absolute Lymphocytes (CBC) 0.9 K/uL (0.7-4.9); Hematocrit 32.7 % (36.0-45.0); Hemoglobin 11.0 g/dL (12.0-15.0); MCH 31.5 pg (27.0-35.0); MCHC 33.6 g/dL (32.0-36.0); MCV 93.8 fL (80-100); MPV 7.2 fL (7.6-11.3); Nucleated RBC Absolute Count 0.0 (0-0); Nucleated Red Blood Cells % 0.0 % (0-0); RBC Red Blood Cell Count 3.48 M/uL (3.86-4.86); White Blood Count 7.00 thou/uL (4.3-10.9)
[2024-11-14 06:59] LABS: Anion Gap 8.9 mEq/L (5.0-15.0); BUN Blood Urea Nitrogen 30.0 mg/dL (7-18); Glucose Level 114.0 mg/dL (74-106); Potassium 4.9 mEq/L (3.5-5.1)
--- NOTE | 2024-11-14 09:17 | P.PN ---
Subjective Date of Service: 11/14/24 Chief Complaint: AMS Subjective: Improving (No acute events overnight) Physical Examination - Vital Signs Temperature: 97.8 F Blood Pressure: 159/74 Pulse: 74 Respirations: 18 Pulse Ox (%): 98 - Physical Exam General: Alert, In no apparent distress, Cooperative HEENT: Atraumatic, Normocephalic Respiratory: Clear to auscultation bilaterally, Normal air movement Cardiovascular: No edema, Normal pulses, Regular rate/rhythm, Normal S1 S2 Neurological: Dementia Assessment And Plan - Plan Assessment Patient is a 89-year-old female with a known past medical history of dementia. She lives in an assisted living facility. She presented to the hospital with acute encephalopathy. 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 She is currently on dual antiplatelet therapy and high intensity statin and on permissive hypertension protocol. Repeat CT head was done on 11/11 due to concern for confusion and aphasia. No signs of worsening or hemorrhagic stroke. Patient is now medically cleared pending transfer to SNF versus rehab. No clinical exchange specialist the past 24 hours. Acute CVA Severe right carotid bulb stenosis Acute metabolic encephalopathy Severe mastoiditis as per CT head Chronic diastolic CHF Dementia Plan: Patient is medically cleared pending transfer to a SNF versus rehab Repeat CT head did not show any signs of hemorrhagic stroke. 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 Patient was previously living in an assisted living facility but may not be able to perform as well at this time Of note, I have spoken with Dr. Villela regarding her CT finding of severe mastoiditis. Looks more like a mass with some fluid collection. Okay to narrow antibiotics to cefdinir 300 mg twice daily. She will need to follow-up with Dr. Villela after she recovers from her stroke.
[2024-11-14] MEDS: LOSARTAN POTASSIUM 50 MG TABLET PO SCH (09:51)
--- NOTE | 2024-11-14 15:43 | P.DS ---
Admission Date: 11/11/24 Discharge Date: 11/14/24 Disposition: TRANSFER TO INPATIENT REHAB Discharge Condition: GOOD Reason for Admission: [facility] Hospital Course: Patient is a 89-year-old female with a known past medical history of dementia. She lives in an assisted living facility. She presented to the hospital with acute encephalopathy. 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 She is currently on dual antiplatelet therapy and high intensity statin and on permissive hypertension protocol. Repeat CT head was done on 11/11 due to concern for confusion and aphasia. No signs of worsening or hemorrhagic stroke. Patient is now medically cleared pending transfer to SNF versus rehab. No clinical global climate change researcher the past 24 hours. Vital Signs/Physical Exam: Temp Pulse Resp BP Pulse Ox 98.2 F 89 18 143/61 H 100 11/14/24 12:00 11/14/24 12:00 11/14/24 12:00 11/14/24 12:00 11/14/24 12:00 General: Alert, In no apparent distress, Cooperative HEENT: Atraumatic, Normocephalic Respiratory: Clear to auscultation bilaterally, Normal air movement Cardiovascular: No edema, Normal pulses, Regular rate/rhythm, Normal S1 S2 Neurological: Normal speech, Dementia Laboratory Data at Discharge: WBC 7.00 thou/uL (4.3-10.9) 11/14/24 05:52 Hgb 11.0 g/dL (12.0-15.0) L D 11/14/24 05:52 Hct 32.7 % (36.0-45.0) L 11/14/24 05:52 Plt Count 152 thou/uL (152-406) 11/14/24 05:52 Sodium 139 mEq/L (136-145) 11/14/24 05:52 Potassium 4.9 mEq/L (3.5-5.1) 11/14/24 05:52 BUN 30 mg/dL (7-18) H 11/14/24 05:52 Creatinine 1.11 mg/dL (0.55-1.02) H 11/14/24 05:52 Glucose 114 mg/dL (74-106) H 11/14/24 05:52 Phosphorus 3.2 mg/dL (2.5-4.9) 11/13/24 06:28 Magnesium 2.3 mg/dL (1.6-2.4) 11/13/24 06:28 Total Bilirubin 0.5 mg/dL (0.2-1.0) 11/12/24 04:07 AST 19 U/L (15-37) 11/12/24 04:07 ALT 21 U/L (13-56) 11/12/24 04:07 Alkaline Phosphatase 61 U/L (45-117) 11/12/24 04:07 Triglycerides 40 mg/dL (<150) 11/12/24 04:07 Cholesterol 253 mg/dL (<200) H 11/12/24 04:07 HDL Cholesterol 84 mg/dL (40-60) H 11/12/24 04:07 Cholesterol/HDL Ratio 3.01 11/12/24 04:07 Lipase 78 U/L (13-75) H 11/10/24 22:02 Home Medications: Clopidogrel Bisulfate [Plavix] 75 mg PO DAILY 11/11/24 Donepezil HCl 10 mg PO BEDTIME 11/11/24 Gabapentin 100 mg PO BID 11/11/24 Levothyroxine [Synthroid*] 75 mcg PO [id number] 11/11/24 Losartan Potassium 50 mg PO DAILY 11/11/24 Memantine HCl 5 mg PO BID 11/11/24 hydroCHLOROthiazide [Hydrochlorothiazide] 12.5 mg PO DAILY 11/11/24 Aspirin [Aspirin EC 81 MG] 81 mg PO DAILY #30 tab 11/14/24 Atorvastatin Calcium [Lipitor] 40 mg PO BEDTIME tab 11/14/24 Cefdinir [Cefdinir*] 300 mg PO BID cap 11/14/24 Clopidogrel Bisulfate [Plavix*] 75 mg PO DAILY 11/14/24 Memantine HCl [Namenda*] 5 mg PO BID 11/14/24 New Medications: Aspirin [Aspirin EC 81 MG] 81 mg PO DAILY #30 tab Followup: Sun Aguilar MD [Primary Care Provider] -
[2024-11-14 16:28] VITALS: BP 138/64; TEMP 98.3
== END 2024-11-14 16:29 | DRG 64 ==
LOC: ER 21:22 → ERHOLD 11-11 02:01 → 2ND 11-11 10:50
PROVIDERS: ADMIT Family Medicine; ATTEND Internal Medicine
DX: I63.9 Cerebral infarction, unspecified (principal); G93.41 Metabolic encephalopathy; E87.1 Hypo-osmolality and hyponatremia; N17.9 Acute kidney failure, unspecified; I50.32 Chronic diastolic (congestive) heart failure; I13.0 Hypertensive heart and chronic kidney disease with heart failure and stage 1 through stage 4 chronic kidney disease, or unspecified chronic kidney disease; N18.2 Chronic kidney disease, stage 2 (mild); E78.5 Hyperlipidemia, unspecified; E03.9 Hypothyroidism, unspecified; H70.92 Unspecified mastoiditis, left ear; H91.93 Unspecified hearing loss, bilateral; I65.21 Occlusion and stenosis of right carotid artery; F03.90 Unspecified dementia, unspecified severity, without behavioral disturbance, psychotic disturbance, mood disturbance, and anxiety; R47.01 Aphasia; R29.702 NIHSS score 2; Z88.0 Allergy status to penicillin; Z88.2 Allergy status to sulfonamides; Z86.73 Personal history of transient ischemic attack (TIA), and cerebral infarction without residual deficits; Z79.890 Hormone replacement therapy; Z79.899 Other long term (current) drug therapy
CPT/HCPCS: 36415; 70450; 70551; 74177; 80048; 80053; 80061; 81003; 83690; 83735; 84100; 85025; 86140; 92523; 93005; 93306; 93880; 94760; 97112; 97116; 97161; 97530; 99285; J0360; J3370; J7030; J7040; J7050; Q9967

== ENCOUNTER 2024-12-21 12:03 | Inpatient (IN) | payer OTHER ==
--- OUTSIDE RECORDS SUMMARY | 2024-12-21 12:10 | XMS REPORT | Continuity of Care Document ---
Author Name Unknown Address [address] [place] [address] [facility] Address [address] [place] [address] Care Team Providers Care Soccer Commentator Name Role Phone PCP, PATIENT DOES NOT HAVE A Primary Care Physic REBECA Landeros Attending Clinician Sandra Janie Mcpherson MA Attending Clinician Mariana Hassan MA Attending Clinician Evangelina Mary MD Attending Clinician [phone] EVANGELINA PATTERSON Attending Clinician Unavail able Doctor Unassigned, [place] Attending Clinician Destiney Wade MA Attending Clinician Randi Jarrett MD, Rebeca Dewitt Attending Clinician Roz HARDEN, Adri Mclean Attending Clinician Unavail ALEXYS Wynn Attending Clinician ALEXYS Griffith Attending Clinician Unavailab Jono COPELAND, Mustapha Attending Clinician [phone] Alexys Thapa MD Attending Clinician [phone] BLANCA NOLASCO Attending Clinician Randi Call RN, Keshia Attending Clinician Unavailabl e Pob, Adc Lab Main Attending Clinician Maria Teresa Ramirez MD Attending Clinician MARIA TERESA BHATIA Attending Clinician Randi leyva Doctor Unassigned, [place] Attending Clinician U tiable KIM SULTANA Attending Clinician Unavailable MOSHE LEWIS Attending Clinician Unavailable EMBER ATKINSON Attending Clinician UnavailALEXYS Astudillo Admitting Clinician UnavailAlexys Astudillo MD Admitting Clinician KIM SULTANA Admitting Clinician Unavailable Payers Payer Name Policy Type Policy Number Effective Date Expirati on Date Source [facility] MEDICARE ADVANTAGE Medicare [id number] 2023 00:00:00 Problems Condition Name Condition Details [...] ce Disease Active 2- 00:00: 00 Sherie Joens Walker as ambulation aid Walker as ambulation [...] dism Disease Active 08-08 00:00: 00 Sherie Smith Epic CVA (cerebrova scular accident) CVA (cerebrova scular [...] 08-08 00:00: 00 Sherie Jones Problem Condition [facility] Rib fractures Rib fractures Disease Resolve d 08-08 00:00: 00 2024-01-08 00:00:00 2024-01-08 11:33:49 Sherie Jones Allergies, Adverse Reactions, Alerts Allergy Name Allergy Type Status Severity Reaction(s) Onset Date Inactive Date Treating Clinician Comments Source Penicill in G Propensi ty to adverse reaction s Active 08-08 00:00: 00 Sherie Jones Sulfa Antibiot ics Propensi ty to adverse reaction s Active 08-08 00:00: 00 Sherie Smith Epic PENICILL IN G DRUG INGREDI Active 08-08 00:00: 00 [facility] SULFA ANTIBIOT ICS Drug Class Active 08-08 00:00: 00 [facility] PENICILL IN G DRUG INGREDI Active High Anaphylaxis 2018-05-27 00:00: 00 [facility] SULFA ANTIBIOT ICS Drug Class Active Other 2018-03 00:00: 00 [facility] SULFA (SULFONA MIDE ANTIBIOT ICS) Drug Class Active Other-Cmnt 2018-03 00:00: 00 [facility] Penicill in Propensi ty to adverse reaction s Active Anaphylaxis 2018-03 00:00: 00 [facility] Sulfa (Sulfona mide Antibiot ics) Propensi ty to adverse reaction s Active Other - See comments 2018-03 00:00: 00 "turns my skin purple" [facility] PENICILL IN DRUG INGREDI Active Anaphylaxis 2018-03 00:00: 00 [facility] Penicill in G Allergy to substanc e Active Anaphylaxis, Unknown 2018-03 00:00: 00 Sherie Jones Sulfa Antibiot ics Drug Intolera nce Active Other, Unknown 2018-03 00:00: 00 "turns my skin purple" Sherie Jones Penicill in Allergy to substanc e Active Unknown 12-18 00:00: 00 [facility] Sulfonam hetal Allergy to substanc e Active Unknown 12-18 00:00: 00 [facility] Social History Social Habit Start Date Stop Date Quantity Comments Source Gender identity 2023-06-22 08:33:40 Identifies as female gender (finding) Olga Jones ASSERTION Possible Olga Jones Sexual [facility] Alcoholic beverage intake 2024-06-17 00:00:00 2024-06-17 00:00:00 Lifetime non-drinker (finding) Olga Jones History of Social function 2023-11-04 00:00:00 2023-11-04 00:00:00 [facility] Tobacco use and exposure 2023-08-09 00:00:00 2023-08-09 00:00:00 Smokeless tobacco non-user Olga Jones Sex 2023-06-22 08:33:40 2023-06-22 08:33:40 Female (finding) Olga Jones Sex assigned at 1935 00:00:00 1935 00:00:00 [facility] Smoking Status Start Date Stop Date Source Tobacco smoking consumption unknown [facility] Never smoked tobacco Sherie Jones Medications [...] morning and 1 tablet in the evening. Sherie Jones clopidogrel (Plavix) 75 MG tablet clopidogrel (Plavix) 75 MG tablet 2023-03 00:00: 00 Yes 75mg QD TAKE 1 TABLET BY MOUTH 1 TIME EACH DAY. Sherie Jones losartan (Cozaar) 50 MG tablet losartan (Cozaar) 50 MG tablet 12-16 00:00: 00 12-16 23:59 :00 No 50mg QD Take 1 tablet by mouth 1 time each day. Sherie Smith [facility] clopidogrel (Plavix) 75 MG tablet clopidogrel (Plavix) 75 MG tablet -16 00:00: 00 02-08 00:00 :00 No 75mg QD Take 1 tablet by mouth 1 time each day. Sherie Jones loratadine 10 mg tablet 9-13 00:00: 00 Yes 10mg Take 1 tablet by mouth in the morning. [facility] acetaminoph en (acetaminop hen extra srength) 500 MG tablet acetaminoph en (acetaminop hen extra srength) 500 MG tablet 9-03 00:00: 00 Yes TAKE 1 TABLET BY MOUTH DAILY NEEDED FOR MILD PAIN (1-3). Sherie Jones donepezil (Aricept) 10 MG tablet donepezil (Aricept) 10 MG tablet 8- 00:00: 00 11-26 23:59 :00 No 10mg Take 1 tablet by mouth at bedtime. Sherie Smith [facility] acetaminoph en (Tylenol Extra Strength) 500 MG tablet acetaminoph en (Tylenol Extra Strength) 500 MG tablet 11-26 00:00: 00 12-01 00:00 :00 No 500mg Q24H Take 1 tablet by mouth daily as needed for mild pain (1-3). Sherie Jones gabapentin (Neurontin) 100 MG capsule [...] ed, Routine, Give vaccine prior to discharge [facility] aspirin chewable tablet 81 mg 11-04 14:00: 00 Yes 81mg 81 mg, Oral, DAILY, First dose on Fri11/05/23 at 0900, Until Discontinu ed, Routine [facility] enoxaparin (LOVENOX) injection 40 mg 11-04 14:00: 00 Yes 40mg 40 mg, Subcutaneo us, DAILY, First dose on Fri11/05/23 at 0900, Until Discontinu ed, Routine [facility] acetaminoph en (TYLENOL) tablet 650 mg 11-03 22:34: 24 Yes 650mg 650 mg, Oral, Q6HPRN, Starting on Fri11/04/23 at 1734, Until Discontinu ed, Routine, Pain (scale 1-3) [facility] losartan (Cozaar) 50 MG tablet losartan (Cozaar) 50 MG tablet 10-14 00:00: 00 12-15 00:00 :00 No 50mg QD Take 1 tablet by mouth 1 time each day. Sherie Jones triamcinolo ne acetonide 0.1 % cream 10-13 00:00: 00 Yes [facility] donepezil (Aricept) 5 MG tablet donepezil (Aricept) 5 MG tablet 09-23 00:00: 00 11-26 00:00 :00 No 5mg Take 1 tablet by mouth at bedtime. Sherie Jones gabapentin 100 mg capsule 09-18 00:00: 00 03-18 05:59 :00 No 100mg Take 1 capsule by mouth at bedtime. [facility] PLAVIX 75 mg tablet 09-07 00:00: 00 Yes 1 tablet Orally Once a day [facility] clopidogrel (Plavix) 75 MG tablet clopidogrel (Plavix) 75 MG tablet 09-07 00:00: 00 12-14 00:00 :00 No 75mg QD TAKE 1 TABLET BY MOUTH DAILY Sherie Jones losartan (Cozaar) 50 MG tablet [...] (Halfprin) 81 Mg TABEC No 81mg Daily [facility] Carvedilol (Coreg) 6.25 Mg TAB No 6.25mg Twic e A Day [facility] [place] Calcium1 Tab No 1 Twice A Day [facility] Lovastatin (Mevacor Immediate Release) 40 Mg TAB No 80mg Bedtime [facility] Multivitami ns/Minerals (Centrum Silver) 1 Tab TABLET No 1 Daily [facility] Solifenacin (Vesicare) 10 Mg TAB No 10mg Daily [facility] Tramadol Hcl (Ultram) 50 Mg TAB No 50mg Prn Pain [facility] Valsartan (Diovan) 160 Mg TAB No 160mg [facility] Calcium/Vit negron D (Citracal + D) 1 Tab TAB No 1 Twice A Day [facility] Vital Signs Vital Name Observation Time Observation Value Comments S juanita Systolic blood pressure 2024-06-17 13:26:00 170 mm[Hg] [facility] Diastolic blood pressure 2024-06-17 13:26:00 81 mm[Hg] [facility] Heart rate 2024-06-17 13:26:00 74 /min [facility] Body temperature 2024-06-17 13:26:00 36.33 [facility] Respiratory rate 2024-06-17 13:26:00 16 /min [facility] Body height 2024-06-17 13:26:00 153.7 cm [facility] Body weight 2024-06-17 13:26:00 70.308 kg [facility] BMI 2024-06-17 13:26:00 29.77 kg/m2 [facility] Oxygen saturation in Arterial blood by Pulse oximetry 2024-06-17 13:26:00 99 /min [facility] Systolic blood pressure 2024-06-17 13:26:00 170 mm[Hg] [facility] Diastolic blood pressure 2024-06-17 13:26:00 81 mm[Hg] [facility] Heart rate 2024-06-17 13:26:00 74 /min [facility] Body temperature 2024-06-17 13:26:00 36.33 Jennifer [facility] Respiratory rate 2024-06-17 13:26:00 16 /min [facility] Body height 2024-06-17 13:26:00 153.7 cm [facility] Body weight 2024-06-17 13:26:00 70.308 kg [facility] BMI 2024-06-17 13:26:00 29.77 kg/m2 [facility] Oxygen saturation in Arterial blood by Pulse oximetry 2024-06-17 13:26:00 99 /min [facility] Systolic blood pressure 2024-05-04 11:33:00 155 mm[Hg] [facility] Diastolic blood pressure 2024-05-04 11:33:00 78 mm[Hg] [facility] Heart rate 2024-05-04 11:33:00 75 /min [facility] Body temperature 2024-05-04 11:33:00 36.5 [facility] Respiratory rate 2024-05-04 11:33:00 16 /min [facility] Body height 2024-05-04 11:33:00 152.4 cm Anuel rial [facility] Body weight 2024-05-04 11:33:00 67.586 [facility] 2024-05-04 11:33:00 29.10 kg/m2 [facility] Oxygen saturation in Arterial blood by Pulse oximetry 2024-05-04 11:33:00 98 /min [facility] Systolic blood pressure 2024-05-04 11:33:00 155 mm[Hg] [facility] Diastolic blood pressure 2024-05-04 11:33:00 78 mm[Hg] [facility] Heart rate 2024-05-04 11:33:00 75 /min [facility] Body temperature 2024-05-04 11:33:00 36.5 [facility] Epic Respiratory rate 2024-05-04 11:33:00 16 /min [facility] Body height 2024-05-04 11:33:00 152.4 cm Anuel [facility] Body weight 2024-05-04 11:33:00 67.586 kg [facility] BMI 2024-05-04 11:33:00 29.10 kg/m2 [facility] Oxygen saturation in Arterial blood by Pulse oximetry 2024-05-04 11:33:00 98 /min [facility] Systolic blood pressure 2024-01-08 11:34:00 142 mm[Hg] [facility] Epic Diastolic blood pressure 2024-01-08 11:34:00 76 mm[Hg] [facility] Heart rate 2024-01-08 11:34:00 78 /min [facility] Body temperature 2024-01-08 11:34:00 36 Jennifer [facility] Respiratory rate 2024-01-08 11:34:00 16 /min [facility] Epic Systolic blood pressure 2024-01-08 11:34:00 142 mm[Hg] [facility] Her s[facility]uentes Epic Diastolic blood pressure 2024-01-08 11:34:00 76 mm[Hg] [facility] Heart rate 2024-01-08 11:34:00 78 /min [facility] Body temperature 2024-01-08 11:34:00 36 [facility] Luis Epic Respiratory rate 2024-01-08 11:34:00 16 /min [facility] Systolic blood pressure 2023-12-15 19:23:00 184 mm[Hg] [facility] Diastolic blood pressure 2023-12-15 19:23:00 88 mm[Hg] [facility] Heart rate 2023-12-15 19:21:00 78 /min [facility] Body temperature 2023-12-15 19:21:00 37.22 [facility] Body height 2023-12-15 19:21:00 162.6 cm stated [facility] Body weight 2023-12-15 19:21:00 64.592 kg [facility] BMI 2023-12-15 19:21:00 24.44 kg/m2 [facility] Oxygen saturation in Arterial blood by Pulse oximetry 2023-12-15 19:21:00 99 /min [facility] Systolic blood pressure 2023-11-27 10:15:00 166 mm[Hg] [facility] Epic Diastolic blood pressure 2023-11-27 10:15:00 67 mm[Hg] [facility] Epic Heart rate 2023-11-27 10:15:00 81 /min [facility] Body temperature 2023-11-27 10:15:[address] [facility] Respiratory rate 2023-11-27 10:15:00 16 /min Olga Smith Epic Oxygen saturation in Arterial blood by Pulse oximetry 2023-11-27 10:15:00 99 /min Olga sifuentes Epic Systolic blood pressure 2023-11-27 10:15:00 166 mm[Hg] Olga sifuentes [facility] Diastolic blood pressure 2023-11-27 10:15:00 67 mm[Hg] Olga sifuentes [facility] Heart rate 2023-11-27 10:15:00 81 /min Memor ia[facility] Smith [facility] Body temperature 2023-11-27 10:15:00 34 Jennifer [facility] [place] [facility] Respiratory rate 2023-11-27 10:15:00 16 /min Olga Smith Epic Oxygen saturation in Arterial blood by Pulse oximetry 2023-11-27 10:15:00 99 /min [facility] Her sifuentes Epic Systolic blood pressure 2023-11-13 16:04:00 158 mm[Hg] [facility] Diastolic blood pressure 2023-11-13 16:04:00 72 mm[Hg] [facility] Heart rate 2023-11-13 16:00:00 74 /min [facility] Body weight 2023-11-13 16:00:00 62.596 kg [facility] BMI 2023-11-13 16:00:00 24.45 kg/m2 [facility] Oxygen saturation in Arterial blood by Pulse oximetry 2023-11-13 16:00:00 99 /min [facility] Systolic blood pressure 2023-11-05 18:45:00 140 mm[Hg] [facility] Diastolic blood pressure 2023-11-05 18:45:00 70 mm[Hg] [facility] Heart rate 2023-11-05 18:45:00 80 /min [facility] Body temperature 2023-11-05 18:45:00 36.83 Jennifer [facility] Respiratory rate 2023-11-05 18:45:00 17 /min [facility] Oxygen saturation in Arterial blood by Pulse oximetry 2023-11-05 18:45:00 100 /min [facility] Body height 2023-11-04 17:07:00 160 cm [facility] Body weight 2023-11-04 17:07:00 58.968 kg [facility] BMI 2023-11-04 17:07:00 23.03 kg/m2 [facility] Systolic blood pressure 2023-12-15 19:23:00 184 mm[Hg] [facility] Diastolic blood pressure 2023-12-15 19:23:00 88 mm[Hg] [facility] Heart rate 2023-12-15 19:21:00 78 /min [facility] Body temperature 2023-12-15 19:21:00 37.22 Jennifer [facility] Body height 2023-12-15 19:21:00 162.6 cm stated [facility] Body weight 2023-12-15 19:21:00 64.592 kg [facility] BMI 2023-12-15 19:21:00 24.44 kg/m2 [facility] Oxygen saturation in Arterial blood by Pulse oximetry 2023-12-15 19:21:00 99 /min [facility] Respiratory rate 2023-11-05 18:45:00 17 /min [facility] Procedures Procedure Date / Time Performed Performing Clinician Source XR knee 3 views bilateral 2024-05-04 00:00:00 [facility] VENOUS REFLUX DUPLEX BILATERAL - BY VASCULAR LAB 2023-11-20 16:56:15 Rebeca Jarrett [facility] CAROTID DUPLEX BILATERAL - BY VASCULAR LAB 2023-11-20 16:46:14 Rebeca Jarrett [facility] SHUBHAM MULTI LEVEL - BY VASCULAR LAB 2023-11-20 16:39:55 Rebeca Jarrett [facility] COMP. METABOLIC PANEL (58377) 2023-11-05 14:06:00 Alexi Owens [facility] CBC WITH DIFF 2023-11-05 14:06:00 Alexi Owens [facility] TROPONIN I 2023-11-05 02:07:00 Emi Cleaning [facility] THYROID STIMULATING HORMONE 2023-11-05 02:07:00 Bairon Martinez [facility] LIPID PANEL ([id number])(TOTAL CHOLESTEROL, TRIGLYCERIDES, HDL) 2023-11-05 02:07:00 Bairon Martinez [facility] MRI brain wo IV contrast 2023-11-05 00:00:00 [facility] Epi c TROPONIN I 2023-11-04 23:58:00 [facility] 2023-11-04 20:13:00 Cristopher [facility] INFLUENZA A/B RSV COVID NAAT 2023-11-04 20:13:00 Cristopher [facility] CT HEAD WO CONTRAST 2023-11-04 18:28:32 Robert Nicholas [facility] TROPONIN I 2023-11-04 18:11:00 [facility] COMP. METABOLIC PANEL ([id number]) 2023-11-04 18:11:00 Cristopher [facility] CBC WITH DIFF 2023-11-04 18:11:00 Cristopher [facility] GLYCOSYLATED HEMOGLOBIN (A1C) 2023-11-04 18:11:00 Bairon Martinez [facility] XR CHEST 1 VW 2023-11-04 17:28:00 [facility]OUT[facility] & RHYTHM STRIP 2023-11-04 17:03:55 Cristopher [facility] PHYSICIAN ORDERS 2023-07-15 18:58:32 Doctor Unas signed, [place] [facility] COMP. METABOLIC PANEL ([id number]) 2023-06-18 14:13:00 Evangelina Patterson [facility] LIPID PANEL ([id number])(TOTAL CHOLESTEROL, TRIGLYCERIDES, HDL) 2023-06-18 14:13:00 Evangelina Patterson [facility] CBC WITH DIFF 2023-06-18 14:13:00 Evangelina Patterson [facility] CONSENT/REFUSAL FOR DIAGNOSIS AND TREATMENT 2023-06-18 13:49:18 Doctor Unassigned, [place] [facility] ASSIGNMENT OF BENEFITS 2023-06-18 13:49:01 Docto r Unassigned, [place] [facility] Plan of Care Planned Activity Planned Date Details Comments Source Encounters Start Date/Time End Date/Time Encounter Type Admission Type Attending Clinicians Care Facility Care Department Encounter ID Source 2024-12-02 00:00:00 2024-12-02 00:00:00 Outpatient R REBECA JARRETT [facility] [id number] [facility] 2024-10-07 00:00:00 2024-10-07 14:46:47 Telephone Jaden JanieJanie Huerta 1.2.840.114 350.1.13.70 8.2.7.2.686 [id number] Sherie mclean [facility] 2024-07-15 00:00:00 2024-08-09 15:22:58 Telephone Mariana Lee Arianna [place] 1.2.840.114 350.1.13.70 8.2.7.2.686 [id number] Sherie mclean [facility] 2024-07-13 00:00:00 2024-07-13 10:00:31 Refill Evangelina Patterson 1.2.840.114 350.1.13.70 8.2.7.2.686 [id number] Sherie mclean [facility] 2024-06-17 13:15:00 2024-06-17 13:52:59 Office Visit Evangelina Patterson 1.2840.114 350.1.13.70 8.2.7.2.686 [id number] Sherie mclean [facility] 2024-06-17 13:01:50 2024-06-17 13:52:59 Outpatient Elective EVANGELINA PATTERSON CHANTE EOUT [id number] [facility] 2023-07-15 00:00:00 2024-05-15 02:19:31 Orders Only Doctor Unassigned, [place] Doctor Unassigned, [place] [facility] 1.2.840.114 350.1.13.10 4.2.7.2.686 [id number] [facility] 2024-05-04 11:30:00 2024-05-04 12:03:44 Office Visit Evangelina Patterson Alyse 1.2.840.114 350.1.13.70 8.2.7.2.686 [id number] Sherie mclean [facility] 2024-05-04 11:20:30 2024-05-04 12:03:44 Outpatient EVANGELINA PATTERSON [facility] [id number] [facility] 2024-02-09 00:00:00 2024-02-09 14:44:30 Refill Evangelina Patterson Alyse 1.2.840.114 350.1.13.70 8.2.7.2.686 [id number] Sherie mclean [facility] 2024-01-08 11:30:00 2024-01-08 12:04:42 Office Visit Evangelina Patterson Alyse 1.2.840.114 350.1.13.70 8.2.7.2.686 [id number] Sherie mclean [facility] 2024-01-08 11:16:48 2024-01-08 12:04:42 Outpatient EVANGELINA PATTERSON [facility] MHEOUT [id number] [facility] 2023-12-16 00:00:00 2023-12-17 14:12:09 RefDestiney Esparza Jessica [place] 1.2.840.114 350.1.13.70 8.2.7.2.686 [id number] Sherie mclean [facility] 2023-12-15 14:00:00 2023-12-15 14:52:49 Outpatient REBECA PORTILLO [facility] [id number] [facility] 2023-12-15 14:00:00 2023-12-15 14:52:49 Office Visit Rebeca Jarrett [facility] 1.2.840.114 350.1.13.10 4.2.7.2.686 [id number] [facility] 2023-12-15 00:00:00 2023-12-15 13:42:21 Telephone Janie Stanley Kasandra [place] 1.2.840.114 350.1.13.70 8.2.7.2.686 [id number] Sherie mclean [facility] 2023-12-08 00:00:00 2023-12-09 11:38:26 Telephone Janie Stanley Kasandra [place] 1.2.840.114 350.1.13.70 8.2.7.2.686 [id number] Sherie mclean [facility] 2023-12-02 00:00:00 2023-12-02 11:56:50 Evangelina Whitfield 1.2.840.114 350.1.13.70 8.2.7.2.686 [id number] Sherie mclean [facility] 2023-11-27 10:15:00 2023-11-27 10:59:16 Office Visit Evangelina Patterson 1.2.840.114 350.1.13.70 8.2.7.2.686 [id number] Sherie mclean [facility] 2023-11-27 10:04:27 2023-11-27 10:59:16 Outpatient EVANGELINA PATTERSON MHJoseloOUT [facility] [id number] [facility]OUT 2023-11-24 00:00:00 2023-11-24 17:21:12 Destiney Varela Jessica [place] 1.2.840.114 350.1.13.70 8.2.7.2.686 [id number] Sherie mclean [facility] 2023-11-20 09:50:13 2023-11-20 23:59:00 Hospital Encounter Rebeca Jarrett [facility] 1.2.840.114 350.1.13.10 4.2.7.2.686 [id number] [facility] 2023-11-20 09:48:37 2023-11-20 09:49:00 Hospital Encounter Rebeca Jarrett [facility] 1.2.840.114 350.1.13.10 4.2.7.2.686 [id number] [facility] 2023-11-20 09:45:37 2023-11-20 09:47:00 Outpatient R REBECA JARRETT [facility] [id number] [facility] 2023-11-20 09:45:37 2023-11-20 09:47:00 Hospital Encounter Rebeca Jarrett [facility] 1.2.840.114 350.1.13.10 4.2.7.2.686 [id number] [facility] 2023-11-06 00:00:00 2023-11-17 09:30:42 Transition of Care Adri Courtney Kristi L SHEARN MARIA [place] 1.2.840.114 350.1.13.10 4.2.7.2.686 [id number] [facility] 2023-11-13 10:45:00 2023-11-13 11:47:40 Outpatient R REBECA JARRETT [facility] [id number] [facility] 2023-11-13 10:45:00 2023-11-13 11:47:40 Office Visit MichellRebeca king Renate [facility] 1.2.840.114 350.1.13.10 4.2.7.2.686 [id number] [facility] 2023-11-05 00:00:00 2023-11-05 18:07:44 Telephone Janie Stanley Kasandra [place] 1.2.840.114 350.1.13.70 8.2.7.2.686 [id number] Sherie mclean [facility] 2023-11-04 12:08:00 2023-11-05 13:47:00 Outpatient ALEXYS COFFEY [facility] [id number] [facility] 2023-11-04 12:08:00 2023-11-05 13:47:00 Emergency Mustapha Nicholas Steven [facility] 1.2.840.114 350.1.13.10 4.2.7.2.686 [id number] [facility] 2023-11-04 11:30:00 2023-11-04 11:30:00 Outpatient BLANCA SANCHEZ [facility] [id number] [facility] 2023-10-15 00:00:00 2023-10-15 11:26:50 Destiney Varela Jessica [place] 1.2.840.114 350.1.13.70 8.2.7.2.686 [id number] Memoria vinay [facility] 2023-09-24 00:00:00 2023-09-24 17:35:34 Keshia Ferrara Sabrina [place] 1.2.840.114 350.1.13.70 8.2.7.2.686 [id number] Memoria vinay [facility] 2023-09-16 00:00:00 2023-09-19 13:32:32 Telephone Janie Stanley Kasandra [place] 1.2.840.114 350.1.13.70 8.2.7.2.686 [id number] Sherie mclean [facility] 2023-09-11 00:00:00 2023-09-11 18:14:07 Treatment Evangelina Patterson [place] 1..840.114 350.1.13.70 8.2.7.2.686 [id number] Sherie Smith [facility] 2023-08-21 13:26:29 2023-08-21 14:14:00 Outpatient EVANGELINA PATTERSON MHIEEPIC IEEPIC [id number] Sherie Smith [facility] 2023-06-18 09:00:00 2023-06-18 09:15:00 Prn Physical Therapist Visit Pob, Adc Lab Main Maria Teresa Bhatia [facility] 1.2.840.114 350.1.13.10 4.2.7.2.686 [id number] [facility] 2023-06-18 09:00:00 2023-06-18 09:00:00 Outpatient MARIA TERESA WOODSON [facility] [id number] [facility] 2023-06-18 00:00:00 2023-06-18 00:00:00 Orders Only Doctor Unassigned, [place] [facility] 1.2.840.114 350.1.13.10 4.2.7.2.686 [id number] [facility] 2020-08-08 12:25:00 2020-08-08 14:35:00 Emergency X KIM SULTANA [facility] ERT [id number] [facility] 2019-07-30 00:00:00 2019-08-29 00:01:00 Outpatient MOSHE CHOPRA [id number] [facility] 2019-06-30 10:38:00 2019-06-30 10:38:00 Discharged Recurring MOSHE CHOPRA [id number] [facility] 2019-06-01 08:41:00 2019-06-01 08:41:00 Discharged Recurring DAKOTA SAIDAMOSHE RAYMUNDO [id number] [facility] 2019-03-27 00:56:30 2019-03-27 02:41:00 Emergency X EMBER ATKINSON [facility] ERT [id number] [facility] Results Test Description Test Time Test Comments Results Result Co mments Source [facility] with Zghp7982-17-76 14:19:17* Test Item Value Reference Range Interpretation [...] 32.9 g/dL 31.6-35.1 RDW-SD (test code = 14436-6) 43.8 fL 39.0-49.9 RDW-CV (test code = 788-0) 12.6 % 12.0-15.5 PLT (test code = 777-3) 139 166-358 L MPV (test code = 67840-6) 9.0 fL 9.5-12.9 L IPF % (test code = 0787386995) 1.0 % 1.3-7.7 L Platelet count measured by fluorescence method. NRBC/100 WBC (test code = 5424914083) 0.0 0.0-10.0 NRBC x10^3 (test code = 6172506562) See_Comment [Automated messa ge] The system which generated this result transmitted reference range: 10*3/?L. The reference range was not used to interpret this result as normal/abnormal. GRAN MAT (NEUT) % (test code = 770-8) 71.5 % IMM GRAN % (test code = 9415367726) 0.40 % LYMPH % (test code = 736-9) 16.3 % MONO % (test code = 5905-5) 9.6 % EOS % (test code = 713-8) 1.8 % BASO % (test code = 706-2) 0.4 % GRAN MAT x10^3(ANC) (test code = 0772334491) 5.53 10*3/uL 1.88-7.09 IMM GRAN x10^3 (test code = 2988616585) 0.03 10*3/uL 0.00-0.06 LYMPH x10^3 (test code = 731-0) 1.26 10*3/uL 1.32-3.29 L MONO x10^3 (test code = 742-7) 0.74 10*3/uL 0.33-0.92 EOS x10^3 (test code = 711-2) 0.14 10*3/uL 0.03-0.39 BASO x10^3 (test code = 704-7) 0.03 10*3/uL 0.01-0.07 Lab Interpretation (test code = 10085-8) [facility]0764-28-90 18:31:27CT HEAD WO CONTRAST HISTORY: Female 88 [...] air cells andvisualized paranasal air sinuses are clear.[facility] QV4095-94-18 17:38:53 PROCEDURE: XR CHEST 1 11/04/2023 12:19 [...] cardiac size is normal. No aggressive osseous lesion.[facility] YVBFHK1158-35-72 18:58:32Ordered by an unspecified provider.[facility] Lipid Panel (08302)(Total Cholesterol, Triglycerides, HDL)2023-06-18 15:28:43* Test Item Value Reference Range Interpretation Comme nts CHOL (test code = 9066055832) 197 mg/dL 120-200 HDL (test code = 3583815150) 57 mg/dL >=50 HDLC RATIO (test code = 9634426698) 3.5 <=4.5 TRIG (test code = 9262567593) 48 mg/dL 30-170 LDL CHOL (test code = 83415-0) 130 mg/dL <=160 VLDL (test code = 8592214501) 10 mg/dL 5-60 Lab Interpretation (test cod e = 06410-7) Normal [facility] (11112)2023-06-18 15:28:28* Test Item Value Reference Range Interpretation Comme nts NA (test code = 3544061554) 138 mmol/L 135-145 K (test code = 5880761328) 4.4 mmol/L 3.5-5.0 CL (test code = 6237897889) 101 mmol/L 98-108 CO2 TOTAL (test code = 8369154709) 33 mmol/L 23-31 H AGAP (test code = 9901471907) 4 2-16 BUN (test code = 6631228789) 22 mg/dL 7-23 GLUCOSE (test code = 0326810487) 94 mg/dL 70-110 CREATININE (test code = 2160-0) 0.76 mg/dL 0.50-1.04 TOTAL BILI (test code = 9459922963) 0.5 mg/dL 0.1-1.1 CALCIUM (test code = 3430111435) 9.4 mg/dL 8.6-10.6 T PROTEIN (test code = 3470618325) 6.2 g/dL 6.3-8.2 L ALBUMIN (test code = 2089586363) 3.0 g/dL 3.5-5.0 L ALK PHOS (test code = 1504546729) 100 U/L 34-122 ALTv (test code = 1742-6) 15 U/L 5-35 AST(SGOT) (test code = 9765289610) 31 U/L 13-40 eGFR (test code = 01807-0) 76.4 mL/min/1.73m2 CKD-EPI eGFR (2020). Assuming creatinine has been stable day-to-day for at least three months, the eGFR indicates Category G2 (60 - 89 mL/min/1.73 m2) Lab Interpretation (test code = 16531-4) Abnormal [facility] with Hvge1491-02-94 14:47:22* Test Item Value Reference Range Interpretation [...] 32.2 g/dL 31.6-35.1 RDW-SD (test code = 36522-7) 43.2 fL 39.0-49.9 RDW-CV (test code = 788-0) 12.1 % 12.0-15.5 PLT (test code = 777-3) 161 166-358 L MPV (test code = 57300-3) 8.8 fL 9.5-12.9 L NRBC/100 WBC (test code = 4809060132) 0.0 0.0-10.0 NRBC x10^3 (test code = 2039259201) See_Comment [Automated messa ge] The system which generated this result transmitted reference range: 10*3/?L. The reference range was not used to interpret this result as normal/abnormal. GRAN MAT (NEUT) % (test code = 770-8) 60.4 % IMM GRAN % (test code = 7537513556) 0.80 % LYMPH % (test code = 736-9) 20.4 % MONO % (test code = 5905-5) 10.1 % EOS % (test code = 713-8) 7.7 % BASO % (test code = 706-2) 0.6 % GRAN MAT x10^3(ANC) (test code = 9120608400) 3.06 10*3/uL 1.88-7.09 IMM GRAN x10^3 (test code = 3484411365) 0.04 10*3/uL 0.00-0.06 LYMPH x10^3 (test code = 731-0) 1.03 10*3/uL 1.32-3.29 L MONO x10^3 (test code = 742-7) 0.51 10*3/uL 0.33-0.92 EOS x10^3 (test code = 711-2) 0.39 10*3/uL 0.03-0.39 BASO x10^3 (test code = 704-7) 0.03 10*3/uL 0.01-0.07 Lab Interpretation (test code = 75969-8) Abnormal [facility] XOEEW9209-61-91 09:43:00* Test Item Value Reference Range Interpretation Comme nts CULTURIN (test code = CULTURIN) CULTURIN (test code = EOAIDKRN7072) PDG 2022-04-06 1506 >100,000 CFU/ML PD 2022-04-06 1507 OXIDASE NEGATIVE GRAM NEGATIVE BACILLI ISOLATED PRELIMINARY REPORT [facility] 2022-04-06 1508 ID AND/OR SENSITIVITY TO FOLLOW PRELIMINARY REPORT MG Mammo Digital Screening Vorashqfk1127-26-97 08:57:13Patient: QASIM BATISTA Date/Time05/18/2018 14:17 CSTReason for ExamMAMMO SCREEN INGReportCAD MAMMOGRAM: With tomocenthesisCOMPARISON: [facility]CLINICAL INFORMATION: ScreeningRoutine mediolateral and craniocaudal [...] ASigned (Electronic Signature): 05/19/2018 8:57 amLEXISCAN KAYLEEN. REST/QWSRXI7918-33-23 14:31:[address] [address]QLASURVFUY IMAGING REPORTPatient Name: Agusto BATISTA of Service: [id number]: 81 Sex: F Order #: [id number] Room: OPEDOB: 1935 X-Ray Number: [id number] Record Number: [id number] Hospital Number: [id number] Physician: MARIA TERESA CHICAS - Ordering Physician: MARIA TERESA CHICAS -NUCLEAR CARDIAC EVALUATION WITH REST AND STRESS:CLINICAL HISTORY: Chronic dyspnea, sleep apnea and hypertensionTECHNIQUE: This patientwas administered 10.2 millicuries of ixmfrtbeki14o labeled Myoview intravenously for the resting portion of thisexamination. The stress portion of examination was monitored by . Stress was achieved utilizing intravenous Lexiscan. An rakapyjjoy27.2 mCi of the tracer was injected intravenously [...] CVA with left sided deficits. Presents to [facility] with chest pain during vascular surgery appointment. [...] history. Prior Living Situation: lives at the [facility] DME: shower chair, rollator Prior level of [...] before and after session COMMUNICATION Primary Language: Mongolian Able to Verbalize needs: Yes Vision:good; no [...] 15 min Walter Green PT License #: [id number] A physical therapy evaluation of moderate complexity [...] presentation with changing characteristics Walter Green PT [facility] Notes Date/Time Note Provider Source Referral ID Status Reason Start Date Expiration Date Visits Requested Visits Authorized [id number] Pending Review Consult and Treat 10/07/2024 10/02/2025 1 1 [facility]pizgqc7056[facility]59-70 14:46:54 [facility]Hpasjkw1924-22-25 14:46:54Upcoming Encounters Scheduled Referrals Name Type Priority [...] on patient's age to complete this topic [facility] HospitalUlfpeab1096-87-08 14:46:54 Diagnosis Chronic pain of both knees - Primary [facility] HospitalBdhqlbs9640-47-42 14:46:54 [place] 047755-07-10 14:17:49 Patients daughter called and stated that she had spoken to you before about cortisol shots for patients knee pain. Daughter stated that they believe that is the next step they would like to proceed with. They would like to know what has to be done to start the process. [facility] HospitalUqeobuc4871-08-93 15:23:08 [facility] HospitalGizkxko5317-66-00 15:23:08Upcoming Encounters Health Maintenance Due Date Last [...] on patient's age to complete this topic [facility] HospitalRysecjq1684-62-34 15:23:08 [facility] HospitalMuvgobm9954-42-36 11:18:22 came into the office and picked the letter up. Mariana Lee [facility]2025-04-24 14:15:43 Patients daughter called in again requesting the handicap placards. [facility] HospitalXaaxjbi6040-60-87 11:27:32 Patients daughter called in and requested a letter for a handicap placard for both herself (Gabriel) and her sister (Melissa). She also would like to know if the duration could be extended to longer than [address] [facility] HospitalYandvxj0126-13-86 10:00:42* [facility] HospitalUvdnnxm1684-22-69 10:00:42 [facility] HospitalZpldwyd0887-83-38 10:00:42Upcoming Encounters Health Maintenance Due Date Last [...] on patient's age to complete this topic [facility] HospitalXlbpweb9458-71-13 10:00:42 [facility] HospitalUtybvwx8994-53-15 17:24:33* [facility] HospitalLjxtjcw4320-14-12 17:24:33 [facility] HospitalLtycpzv1101-17-53 17:24:33* Evangelina Patterson MD - 06/17/2024 1:15 [...] disease, unspecified (HCC) Stable, continue present medications. [facility] Impdwwd2618-78-19 17:24:33Upcoming Encounters Health Maintenance Due Date Last [...] on patient's age to complete this topic [facility] HospitalLlmqvvc5931-50-27 17:24:33 Diagnosis Cerebrovascular accident (CV A) due to thrombosis of middle cerebral artery, unspecified blood vessel laterality (HCC) - Primary Alzheimer's disease, unspeci fied (HCC) [facility] HospitalOglbceg9129-07-90 17:24:33 [facility] Bmhhsoc2843-06-49 17:24:33* [facility] Wjkdliy6255-19-86 17:24:[address] [facility] HospitalUefsayt3236-96-96 17:24:33* Evangelina Patterson MD - 06/17/2024 1:15 [...] disease, unspecified (HCC) Stable, continue present medications. T [facility] HospitalVqwjlau4298-10-47 17:24:33Upcoming Encounters Health Maintenance Due Date Last [...] on patient's age to complete this topic [facility] HospitalWpneasi7379-93-27 17:24:33 Diagnosis Cerebrovascular accident (CV A) due to thrombosis of middle cerebral artery, unspecified blood vessel laterality (HCC) - Primary Alzheimer's disease, unspeci fied (HCC) [facility] HospitalFwxclpg2336-01-03 17:24:33 [facility] HospitalSfzjmbn2961-51-77 13:08:59* [facility] HospitalEszwelm6204-97-55 13:08:59 [facility] HospitalJjwehmt5586-49-33 13:08:59* Evangelina Patterson MD - 05/04/2024 11:30 AM TECHNICAL ACCOUNT EXECUTIVE History of Present Illness Memory Loss Cerebrovascular [...] patient's single, serious condition or complex condition. [facility]2025-02-04 13:08:59Upcoming Encounters Scheduled Orders Name Type Priority [...] on patient's age to complete this topic [facility] HospitalSldqlnn8243-00-66 13:08:59 Diagnosis Cerebrovascular accident (CV A) due to thrombosis of middle cerebral artery, unspecified blood vessel laterality (HCC) - Primary Dementia in other diseases c lassified elsewhere, unspecified severity, without behavioral disturbance, psychotic disturbance, mood disturbance, and anxiety (HCC) Chronic pain of both knees [facility] HospitalGlblvzc4647-83-47 13:08:59 [facility] HospitalHdsszto0918-49-60 13:08:59* [facility] HospitalUjamrwq8688-48-32 13:08:59 [facility] HospitalVlflaej2304-04-77 13:08:59* Evangelina Patterson MD - 05/04/2024 11:30 AM TECHNICAL ACCOUNT EXECUTIVE History of Present Illness Memory Loss Cerebrovascular [...] patient's single, serious condition or complex condition. NICAL ACCOUNT EXECUTIVE [facility] HospitalDaeppvz5733-58-79 13:08:59Upcoming Encounters Scheduled Orders Name Type Priority [...] on patient's age to complete this topic [facility] HospitalKgroeio0154-26-47 13:08:59 Diagnosis Cerebrovascular accident (CV A) due to thrombosis of middle cerebral artery, unspecified blood vessel laterality (HCC) - Primary Dementia in other diseases c lassified elsewhere, unspecified severity, without behavioral disturbance, psychotic disturbance, mood disturbance, and anxiety (HCC) Chronic pain of both knees [facility] HospitalHtgaknc4626-95-69 13:08:59 [place] 047754-11-11 14:44:40* [facility] HospitalJyhyetz7714-50-72 14:44:[address] [facility] [address] HospitalGjhykmy3992-24-61 14:44:40Upcoming Encounters Health Maintenance Due Date Last [...] on patient's age to complete this topic [facility] HospitalFbgpxic2016-84-87 14:44:[address] [facility] [address] HospitalEyaddko5902-75-53 12:10:45* [facility] HospitalCiicusi7354-39-93 12:10:[address] [facility] HospitalIudebhy0827-79-54 12:10:45* Evangelina Patterson MD - 01/08/2024 11:30 [...] vessel laterality (HCC) Stable, continue present medications. 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, without behavioral disturbance, psychotic disturbance, mood disturbance, or anxiety (HCC) - Primary Cerebrovascular accident (CV A) due to thrombosis of middle cerebral artery, unspecified blood vessel laterality (HCC) [facility] HospitalJksmkxt6517-22-39 12:10:45 [facility] HospitalKlhfrnj0209-26-47 14:12:17* [facility] HospitalMwqvofw2241-75-06 14:12:17Upcoming Encounters Health Maintenance Due Date Last [...] on patient's age to complete this topic [facility] HospitalEpgmosq6142-86-75 14:12:17 [facility] HospitalVailkvl5936-03-12 17:38:57 Done [facility] HospitalAcnvtdk6757-68-23 15:27:41 [facility] [employer] faxed Losartan 50mg tab refill request. [facility] HospitalQrfsoem1637-81-16 13:42:27Upcoming Encounters Health Maintenance Due Date Last [...] on patient's age to complete this topic [facility] HospitalSjrydwk0064-03-02 13:42:27 [facility] HospitalAelydzk0028-13-31 13:33:38 Patients daughter called requesting a refill on the Clopidogrel. [facility] HospitalGxcuuce8346-76-43 11:38:34Upcoming Encounters Health Maintenance Due Date Last [...] on patient's age to complete this topic [place] 047754-09-10 11:38:34 [place] 047754-09-09 16:40:31 Patients daughter has been notified. [facility] HospitalAyovrqh8061-96-87 15:10:10 Patients daughter called and stated that the patients handicap placard expires this month and they would like to know if they can get a prescription for a new one. Patients last appointment was 11/26. [facility] HospitalJlioupr8818-67-67 11:57:01* [place] 047754-09-03 11:57:01Upcoming Encounters Health Maintenance Due Date Last [...] on patient's age to complete this topic [place] 047754-09-03 11:57:01 [facility] HospitalJlyrabm9301-77-58 11:28:39* [facility] HospitalWedbssy7173-82-09 11:28:39* Evangelina Patterson MD - 11/27/2023 10:15 AM CDT History of Present Illness HPI A lot of fatigue, at [facility]. Had a hospital stay with chest pain but no GA. ? 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, without behavioral disturbance, psychotic disturbance, mood disturbance, or anxiety (HCC) [facility] HospitalChzcewt8262-41-71 11:28:39 [facility] HospitalZxzjmau4799-91-10 17:21:23* [facility] HospitalEkmlxrf0657-55-75 17:21:23Upcoming Encounters Health Maintenance Due Date Last [...] on patient's age to complete this topic [facility] HospitalMlffgmh9795-39-32 17:21:23 [place] 047754-08-26 17:20:54 Done [facility] HospitalZgvdjca2836-50-77 16:39:48 [facility] faxed refill request [facility]Stephen[facility] HospitalPipakrv5733-13-18 11:23:51 TRANSITIONAL CARE MANAGEMENT ASSESSMENT 11/06/2023 Qasim Batista [id number] Qasim Batista is a 88 year old /White female was admitted on 11/04/23 to [facility]. She was discharged on 11/05/23 with discharge disposition of HR- Routine Discharge. Admitting Physician: Alexys Thapa Discharge Diagnosis: Chest pain with ACS ruled ou No linked episodes TCM Nim-xnin-aw-face outreach documentation: Discharge Assessment Chart Assessed: 11/06/23 [...] concerns at this time?: No Future [facility]ments: [facility]Csygjg2215-13-66 18:07:45Upcoming Encounters Scheduled Orders Name Type Priority [...] on patient's age to complete this topic [facility] HospitalEcnphtf3728-02-98 18:07:45 Diagnosis Cerebrovascular accident (CV A) due to thrombosis of middle cerebral artery, unspecified blood vessel laterality (HCC) - Primary [facility] HospitalLwdfmbk4882-93-36 18:07:45 [place] 047754-08-07 14:35:40 Patients daughter called and stated that the patient went to the ER on 11/04 due to symptoms she was experiencing of weakness in her left leg and being unable to move. You did recommend they visit the ER due to patient having a stroke previously. [facility] to have an MRI done however the patients daughter would like for you to order the MRI. They would like the [facility] sent [facility]. [facility] HospitalZwrjgtf8171-29-21 13:46:37 Per CYNDEE Middleton, patient good to [...] with steady gait, in no apparent distress. [place] 178094-08-07 12:57:40 Neurology at bedside speaking with patient and daughter. [place] 178094-08-07 12:20:03 Neurology called to speak with patient prior to discharge. [place] [address]-08-07 12:17:42 Patient returns to the ED treatment room. [place] 178094-08-07 11:45:00 Per cardiology, patient OK to discharge. [place] 178094-08-07 11:30:00 Cardiology at bedside speaking with patient. [place] [address]-08-07 11:06:30 Patient at ultrasound. [place] [address]-08-07 10:46:39 Patient pending discharge for clearance from cardiology and neurology. [place] [address]-08-07 10:02:09 Patient finished eating. Daughter at bedside speaking with patient and grandson on telephone. [place] [address]-08-07 09:10:54 Patient sitting upright eating breakfast. AOX4, NAD, VSS [place] [address]-08-07 09:05:47 KOBI Owens at bedside. [place] [address]-08-07 08:54:30 MD Juan at bedside. [place] [address]-08-07 07:11:11 Report received from FINA Jansen. [place] [address]-08-06 12:06:03 Qasim Batista is a 88 year [...] in triage process. AOX4, appears uncomfortable, VSS [facility] Magdalena Pablo [place] [address]-08-06 11:58:00 Associated Order(s): EKG-12 Lead ROUTINE ONCE Pre-Procedure Diagnose(s): Chest pain, unspecified type Post-Procedure Diagnose(s): Chest pain, unspecified type [facility] Emergency Department Note Patient Name: Qasim Batista Date of : 1935 88 year old female Treatment Room: [address] Primary Care Physician: PATIENT DOES NOT HAVE A PCP Patient Escorted by: Family [5] Mode of Arrival: Personal means [1] EMS Treatment Prior to ED Arrival: [facility] treatment: None Travel and Exposure Screening: Symptoms [...] Lab Results: Lab Results COMP. METABOLIC PANEL (02767) - Abnormal Result Value Ref Range NA [...] WO CONTRAST TROPONIN I COMP. METABOLIC PANEL (42144) URINALYSIS CBC WITH DIFF Influenza A B [...] 3)) AdmissionCare documentation entered by: Mustapha Nicholas [facility] [employer], 28th edition, Copyright ? 2023 [employer] All Rights Reserved. [id number]:42:22-05:00 ED COURSE Diagnosis/Impression as of 11/04/23 1654 Chest pain, unspecified type Generalized weakness Procedures: EKG-12 Lead ROUTINE ONCE Date/Time: 11/04/2023 4:50 PM Performed by: Mustapha Nicholas MD Authorized by: Mustapha Nicholas MD ECG interpreted by ED Physician in the absence of a staff midwife/apprenticeship director: yes Interpretation: Interpretation: normal Rate: ECG rate [...] - Observation Condition Stable Comment Treatment Team: [facility] [[id number]] Discharge Medications: Patient's Medications No medications on file Follow-up: Electronically signed by: Mustapha Nicholas MD 11/04/231653 [facility] HospitalTsrers5071-63-48 11:58:00 AdmissionCare Guideline: Chest Pain - OBS, [...] 3)) AdmissionCare documentation entered by: Mustapha Nicholas [facility] [employer], 28th edition, Copyright ? 2023 [facility] [employer] [facility] All Rights Reserved. [id number]:42:22-05:00 [facility] Vjggqb6763-13-29 11:26:59* [facility] Gjriwdx3127-58-03 11:26:59Upcoming Encounters Health Maintenance Due Date Last [...] on patient's age to complete this topic [facility] HospitalFuwrayu9996-21-12 11:26:59 [place] 047754-07-17 11:24:04 Done [facility]2024-07-17 10:40:45 Ela faxed prescription request. [facility]Stephen[facility] HospitalAjwrulf1236-92-54 17:35:44Upcoming Encounters Health Maintenance Due Date Last [...] on patient's age to complete this topic [facility] HospitalOnacwyy5631-63-64 17:35:44 [place] 047754-06-26 15:07:43 [facility] called stating that the Patient is needing a refill on Donepezil 5mg and would like for it be sent to [facility]. [facility]Stephen[facility] HospitalKwsbzlp0821-41-01 13:32:42* [facility] HospitalFnhhngo3650-34-69 13:32:42 Upcoming Encounters Health Maintenance Due Date [...] on patient's age to complete this topic [facility] HospitalEoughtb7060-25-81 13:32:42 [facility] HospitalTuxupyw4123-96-54 16:28:32 Notified patients daughter Gabriel. She would like a new order sent out. [facility] HospitalKrjxdbq5855-89-36 15:17:56 Daughter called and stated that this past weekend the patient showed signs of depression. Daughter would like to know if either Losartan or Gabapentin could be causing this. [facility] HospitalTgpzuhf9018-90-42 18:14:18* Evangelina Patterson MD - 09/11/2023 6:11 PM CDT Home health orders [facility] HospitalIpsvjtz8609-32-99 18:14:18Upcoming Encounters Health Maintenance Due Date Last [...] on patient's age to complete this topic [id number] 18:14:18 Diagnosis Cerebrovascular accident (CV A) due to thrombosis of middle cerebral artery, unspecified blood vessel laterality (HCC) - Primary Falls frequently Personal history of fall Memory loss [id number] 18:14:18 [facility] [id number] 09:00:00 Images from the original note were not included. Venipuncture collection performed by clean technique on the left anticubitus. Total of 1 attempts were made. Slight pressure and a bandage/dressing were applied to the site(s). The patient experienced no complications. The following specimens were processed according to instructions and sent to [facility] laboratories per lab order on 06/18/2023 : LT BLUE SST 1 RED LAV 1 PPT DK GREEN (LiHep) DK GREEN (SodH) STORM DK BLUE (K2) DK BLUE (S) ACD Blood Culture NIPT/NTD [facility]
--- NOTE | 2024-12-21 12:37 | RAD REPORT ---
EXAM: CT brain without contrast HISTORY: HEADACHE COMPARISON: 11/24/2024 TECHNIQUE: Multiple contiguous axial images were obtained and a CT of the brain without contrast. Sag ittal and coronal reformats were performed. One or more of the following dose reduction techniques were used: Automated exposure control, adjust ment of the mA and/or kV according to patient size, and/or iterative reconstruction. FINDINGS: No evidence of hydrocephalus, intracranial hemorrhage, or extra-axial fluid collection. Large area of diminished density is seen in the right parieto-occipital region compatible with subac [place] infarction. Minimal right to left posterior falcine midline shift. The calvarium is intact. Moderate left mastoid effusion. IMPRESSION: No evidence of acute intracranial abnormality. Large area of diminished density right parietal occipital region likely representing subacute infarct .
--- NOTE | 2024-12-21 12:51 | RAD REPORT ---
EXAMINATION: ONE VIEW CHEST XR CLINICAL INDICATION: COUGH TECHNIQUE: Frontal chest projection is submitted. Examination is limited by patient positioning and t echnique. COMPARISON: 11/29/2024 FINDINGS: Mild bilateral pulmonary edema is suspected. The heart is moderately enlarged in size. No displaced f ractures identified. IMPRESSION: Mild CHF versus volume overload pattern is suspected.
[2024-12-21 13:41] LABS: PT Prothrombin Time 15.0 SECONDS (10-13.0); Protime INR 1.34
[2024-12-21 13:53] LABS: ALT/SGPT 21.0 U/L (13-56); AST/SGOT 16.0 U/L (15-37); Albumin 2.6 g/dL (3.4-5.0); Albumin/Globulin Ratio 0.5 (1.1-1.8); Alkaline Phosphatase 58.0 U/L (45-117); Anion Gap 10.7 mEq/L (5.0-15.0); BUN Blood Urea Nitrogen 37.0 mg/dL (7-18); Bilirubin Indirect, Calculated 0.4 mg/dL (0.2-0.8); Globulin 5.2 g/dL (2.3-3.5); Glucose Level 96.0 mg/dL (74-106); Magnesium 2.5 mg/dL (1.6-2.4); NT PRO-BNP 563.0 pg/mL (<450); Potassium 3.7 mEq/L (3.5-5.1); Troponin High Sensitivity 15.7 pg/mL (<58.9)
[2024-12-21 14:04] LABS: Absolute Lymphocytes (CBC) 0.9 K/uL (0.7-4.9); Hematocrit 37.1 % (36.0-45.0); Hemoglobin 12.2 g/dL (12.0-15.0); MCH 29.7 pg (27.0-35.0); MCHC 33.0 g/dL (32.0-36.0); MCV 89.8 fL (80-100); MPV 6.8 fL (7.6-11.3); Nucleated RBC Absolute Count 0.0 (0-0); Nucleated Red Blood Cells % 0.0 % (0-0); RBC Red Blood Cell Count 4.13 M/uL (3.86-4.86); White Blood Count 8.00 thou/uL (4.3-10.9)
[2024-12-21] MEDS ORDERED: METOCLOPRAMIDE 10 MG/2mL INJ ONE (15:16)
[2024-12-21] MEDS ORDERED: KETOROLAC 30 MG/ML INJ ONE (15:16)
[2024-12-21] MEDS ORDERED: NA CHLORIDE 0.9% 500 ML ONE (15:17)
[2024-12-21] MEDS ORDERED: DIPHENHYDRAMINE 50 MG/ML VIAL ONE (15:17)
--- NOTE | 2024-12-21 16:46 | EDPHYS ---
Physician Documentation [facility] Name: Nerissa Batista Age: 89 yrs Sex: Female : 1935 Arrival Date: 12/21/2024 Time: 12:03 Bed 24 Private MD: ED Physician Addi Menjivar HPI: 12/21 16:36 This 89 yrs old Female presents to ER via Wheelchair with complaints of shmuel Headache. 16:36 The patient complains of pain to the top of head and forehead. The patient describes shmuel the headache as aching, constant. Onset: The symptoms/episode began/occurred 1 day(s) ago. Associated signs and symptoms: The patient has no apparent associated signs or symptoms. Severity of symptoms: At its worst the pain was mild, in the emergency department the pain is unchanged. Headache History: The patient has had previous headaches and this one is similar to previous episodes. The symptoms are alleviated by nothing. the symptoms are aggravated by nothing. The patient has not experienced similar symptoms in the past. Historical: - Allergies: 12:20 PENICILLINS; ss 12:20 Sulfa (Sulfonamide Antibiotics); ss - PMHx: 12:20 Dementia; Hypertensive disorder; Hypothyroidism; TIA (Hypothyroidism); ss - Social history:: Smoking status: Patient denies any tobacco usage or history of. - Family history:: not pertinent. ROS: 16:36 Constitutional: Negative for fever, chills, and weight loss, Eyes: Negative for injury, shmuel pain, redness, and discharge, ENT: Negative for injury, pain, and discharge, Neck: Negative for injury, pain, and swelling, Cardiovascular: Negative for chest pain, palpitations, and edema, Respiratory: Negative for shortness of breath, cough, wheezing, and pleuritic chest pain, Abdomen/GI: Negative for abdominal pain, nausea, vomiting, diarrhea, and constipation, Back: Negative for injury and pain, : Negative for injury, bleeding, discharge, and swelling, MS/Extremity: Negative for injury and deformity, Skin: Negative for injury, rash, and discoloration, Psych: Negative for depression, anxiety, suicide ideation, homicidal ideation, and hallucinations, Allergy/Immunology: Negative for hives, rash, and allergies, Endocrine: Negative for neck swelling, polydipsia, polyuria, polyphagia, and marked weight changes, Hematologic/Lymphatic: Negative for swollen nodes, abnormal bleeding, and unusual bruising, 16:36 Neuro: Positive for dizziness, headache, Exam: 16:36 Constitutional: This is a well developed, well nourished patient who is awake, alert, shmuel and in no acute distress. Head/Face: Normocephalic, atraumatic. Eyes: Pupils equal round and reactive to light, extra-ocular motions intact. Lids and lashes normal. Conjunctiva and sclera are non-icteric and not injected. Cornea within normal limits. Periorbital areas with no swelling, redness, or edema. ENT: Nares patent. No nasal discharge, no septal abnormalities noted. Tympanic membranes are normal and external auditory canals are clear. Oropharynx with no redness, swelling, or masses, exudates, or evidence of obstruction, uvula midline. Mucous membranes moist. Neck: Trachea midline, no thyromegaly or masses palpated, and no cervical lymphadenopathy. Supple, full range of motion without nuchal rigidity, or vertebral point tenderness. No Meningismus. Chest/axilla: Normal chest wall appearance and motion. Nontender with no deformity. No lesions are appreciated. Cardiovascular: Regular rate and rhythm with a normal S1 and S2. No gallops, murmurs, or rubs. Normal PMI, no JVD. No pulse deficits. Respiratory: Lungs have equal breath sounds bilaterally, clear to auscultation and percussion. No rales, rhonchi or wheezes noted. No increased work of breathing, no retractions or nasal flaring. Abdomen/GI: Soft, non-tender, with normal bowel sounds. No distension or tympany. No guarding or rebound. No evidence of tenderness throughout. Back: No spinal tenderness. No costovertebral tenderness. Full range of motion. Female : Normal external genitalia. Skin: Warm, dry with normal turgor. Normal color with no rashes, no lesions, and no evidence of cellulitis. MS/ Extremity: Pulses equal, no cyanosis. Neurovascular intact. Full, normal range of motion., bilateral aka Neuro: Awake and alert, GCS 15, oriented to person, place, time, and situation. Cranial nerves II-XII grossly intact. Motor strength 5/5 in all extremities. Sensory grossly intact. Cerebellar exam normal. Normal gait. Psych: Awake, alert, with orientation to person, place and time. Behavior, mood, and affect are within normal limits. 16:36 ECG was reviewed by the Attending Physician. Vital Signs: 12:22 BP 123 / 73; Pulse 117; Resp 16; Temp 98.9; Pulse Ox 97% on R/A; ss 15:26 BP 181 / 92; Pulse 109; Resp 16; Pulse Ox 100% on R/A; jb4 16:30 BP 129 / 99; Pulse 112; Resp 16; Pulse Ox 100% on 2 lpm NC; jb4 17:45 BP 128 / 62; Pulse 108; Resp 16; Pulse Ox 98% on 2 lpm NC; jb4 19:00 BP 146 / 87; Pulse 110; Resp 16; Pulse Ox 98% on 2 lpm NC; jb4 [place] Coma Score: 16:38 Eye Response: spontaneous(4). Motor Response: obeys commands(6). Verbal Response: shmuel oriented(5). Total: 15. MDM: 12:07 Medical Screening Exam initiated shmuel 16:38 Differential diagnosis: cluster headache, hypertensive headache, hypoglycemia, shmuel hyponatremia, intracerebral hemorrhage, migraine, subarachnoid bleed, subdural hematoma, temporal arteritis, tension headache, traumatic injuries, trigeminal neuralgia, uremia, vasomotor headache. Data reviewed: vital signs, nurses notes. Consideration of Admission/Observation Patient was admitted/placed on observation. Escalation of care including admission/observation considered. I considered the following discharge prescriptions or medication management in the emergency department Medications were administered in the Emergency Department. See MAR. Independent interpretation of the following test(s) in the Emergency Department EKG: See my EKG interpretation above. Test considered but Not performed: MRI: no mri brain. Historians other than the Patient: Daughter/Son: 2 daughters. Care significantly affected by the following chronic conditions: Hypertension, tia, cva, dementia. 12/21 12:10 Order name: Basic Metabolic Panel; Complete Time: 16: [facility] 12/21 12:10 Order name: CBC with Diff; Complete Time: : [facility] 12/21 12:10 Order name: LFT's; Complete Time: : [facility] 12/21 12:10 Order name: Magnesium; Complete Time: : [facility] 12/21 12:10 Order name: NT PRO-BNP; Complete Time: : [facility] 12/21 12:10 Order name: PT-INR; Complete Time: 16:23 [facility] 12/21 12:10 Order name: Troponin HS; Complete Time: 16:23 [facility] 12/21 12:10 Order name: UA Rfx Familia Cult if indicated [facility] 12/21 18:07 Order name: Basic Metabolic Panel EDDE 12/21 18:07 Order name: Basic Metabolic Panel EDDE 12/21 18:07 Order name: CBC with Automated Diff EDMS 12/21 18:07 Order name: CBC with Automated Diff EDMS 12/21 12:10 Order name: XRAY Chest (1 view); Complete Time: 16:23 [facility] 12/21 12:10 Order name: CT Head Brain wo Cont; Complete Time: 16: [facility] 12/21 12:10 Order name: Cardiac monitoring; Complete Time: 15:15 [facility] 12/21 12:10 Order name: EKG - Nurse/Tech; Complete Time: 15:15 [facility] 12/21 12:10 Order name: IV Saline Lock; Complete Time: 13:27 [facility] 12/21 12:10 Order name: Labs collected and sent; Complete Time: 13: [facility] 12/21 12:10 Order name: O2 Per Protocol; Complete Time: 15:14 [facility] 12/21 12:10 Order name: O2 Sat Monitoring; Complete Time: 15:14 [facility] 12/21 12:10 Order name: Oxygen: 2 liters; Complete Time: 15:15 [facility] EC:36 Rate is 114 beats/min. Rhythm is regular. QRS [place] is Normal. [place] interval is normal. [facility] QRS interval is normal. QT interval is normal. No Q waves. T waves are Normal. No ST changes noted. Clinical impression: Sinus tachycardia and No evidence of ischemia. Interpreted by me. Reviewed by me. Administered Medications: 15:26 Drug: NS 0.9% IV 500 ml 500 ml IV at 1 bolus once; to be given as a bolus over 30 jb4 minutes Volume: 500 ml; Route: IV; Rate: 1 bolus; Site: right forearm; 16:00 Follow up: Response: No adverse reaction; IV Status: Completed infusion; IV Intake: jb4 500ml 15:26 Drug: metoCLOPramide IVP 10 mg IVP once; over 1 to 2 minutes Route: IVP; Site: right jb4 forearm; 16:00 Follow up: Response: No adverse reaction; Marked relief of symptoms jb4 15:26 Drug: diphenhydrAMINE IVP 25 mg IVP once Route: IVP; Site: right forearm; jb4 16:00 Follow up: Response: No adverse reaction; Marked relief of symptoms jb4 15:26 Drug: Ketorolac IVP 15 mg IVP once Route: IVP; Site: right forearm; jb4 16:00 Follow up: Response: No adverse reaction; Marked relief of symptoms jb4 Disposition Summary: 12/21/24 16:45 Hospitalization Ordered Notes: Hospitalization Status: Observation shmuel Provider: John Owens cha Location: Telemetry/MedSurg (observation) shmuel Condition: Fair shmuel Problem: new shmuel Symptoms: have improved shmuel Bed/Room Type: Standard shmuel Room Assignment: 215(12/21/24 18:12) bd Diagnosis - Headache - subacute cva , right parietal/occipital shmuel - Weakness shmuel - Dementia in other diseases classified elsewhere without behavioral disturbance shmuel - Ventricular tachycardia - non sustained shmuel Forms: - Medication Reconciliation Form shmuel - SBAR form shmuel - Leadership Thank You Letter shmuel Signatures: Dispatcher [employer] EDMS Lorelei Gutierrez Corey, MD MD cha Blanchard, Shelby, RN RN ss Macario Mendez, RN RN jb4 Corrections: (The following items were deleted from the chart) 12:10 12:10 BASIC METABOLIC PANEL+C.LAB.BRZ ordered. EDMS EDMS 12:10 12:10 CBC+H.LAB.BRZ ordered. EDMS EDMS 12:10 12:10 HEPATIC FUNCTION+C.LAB.BRZ ordered. EDMS EDMS 12:10 12:10 MAGNESIUM+C.LAB.BRZ ordered. EDMS EDMS 12:10 12:10 PROBNP+C.LAB.BRZ ordered. EDMS EDMS 12:10 12:10 PROTIME (+INR)+COAG.LAB.BRZ ordered. EDMS EDMS 12:10 12:10 Troponin High Sensitivity+C.LAB.BRZ ordered. EDMS EDMS 12:10 12:10 UA Rfx Familia Cult if indicated+U.LAB.BRZ ordered. EDMS EDMS 12:10 12:10 Chest Single View+RAD.RAD.BRZ ordered. EDMS EDMS 12:11 12:11 Head Brain Wo Cont+CT.RAD.BRZ ordered. EDMS EDMS 18:12 16:45 shmuel bd 18:14 16:[address] [facility] jb4
--- NOTE | 2024-12-21 16:46 | ER ---
Nurse's Notes [facility] Name: Nerissa Batista Age: 89 yrs Sex: Female : 1935 Arrival Date: 12/21/2024 Time: 12:03 Bed 24 Private MD: Diagnosis: Headache-subacute cva , right parietal/occipital;Weakness;Dementia in other diseases classified elsewhere without behavioral disturbance;Ventricular tachycardia-non sustained Presentation: 12/21 12:17 Chief complaint: Patient's son or daughter states: migraine since this morning. ss Ibuprofen typically helps, but has not as of yet this morning. Daughter is concerned because pt had a stroke a month ago and wants to make sure nothing else is going on. Coronavirus screen: Client denies travel out of the [place] in the last 14 days. Ebola Screen: Patient denies exposure to infectious person. Patient denies travel to an Ebola-affected area in the 21 days before illness onset. Initial Sepsis Screen: Does the patient meet any 2 criteria? Does the patient have a suspected source of infection? No. Patient's initial sepsis screen is negative. 12:17 Method Of Arrival: Wheelchair ss 12:20 Risk Assessment: Do you want to hurt yourself or someone else? Patient reports no ss desire to harm self or others. Onset of symptoms was December 21, 2024. 12:20 Acuity: LIN 3 ss Historical: - Allergies: 12:20 PENICILLINS; ss 12:20 Sulfa (Sulfonamide Antibiotics); ss - PMHx: 12:20 Dementia; Hypertensive disorder; Hypothyroidism; TIA (Hypothyroidism); ss - Social history:: Smoking status: Patient denies any tobacco usage or history of. - Family history:: not pertinent. Screenin:30 [facility] ED Fall Risk Assessment (Adult) History of falling in the last 3 months, jb4 including since admission No falls in past 3 months (0 pts) Confusion or Disorientation Yes (5 pts) Intoxicated or Sedated No (0 pts) Impaired Gait No (0 pts) Mobility Assist Device Used Yes (1 pt) Altered Elimination Yes (1 pt) Score/Fall Risk Level 3 or more points = High Risk Oriented to surroundings, Maintained a safe environment. Abuse screen: Denies threats or abuse. Nutritional screening: No deficits noted. Tuberculosis screening: No symptoms or risk factors identified. Assessment: 15:30 General: Appears in no apparent distress. comfortable, Behavior is. Pain: Complains of jb4 pain in headache Pain does not radiate. Pain currently is 8 out of 10 on a pain scale. Neuro: Level of Consciousness is awake, alert, obeys commands, Oriented to person, Reports headache. Cardiovascular: Patient's skin is warm and dry. Respiratory: Airway is patent Respiratory effort is even, unlabored, Respiratory pattern is regular, symmetrical. Derm: Skin is intact, Skin is pink, warm \T\ dry. Musculoskeletal: Circulation, motion, and sensation intact. Range of motion: intact in all extremities. 16:30 Reassessment: pt remains A\T\Ox1, respirations are even and unlabored, no s/s of distress jb4 noted. 17:30 Reassessment: Patient appears in no apparent distress at this time. No changes from jb4 previously documented assessment. Patient and/or family updated on plan of care and expected duration. Pain level reassessed. 18:30 Reassessment: Patient appears in no apparent distress at this time. No changes from jb4 previously documented assessment. Patient and/or family updated on plan of care and expected duration. Pain level reassessed. 19:15 Reassessment: Patient appears in no apparent distress at this time. No changes from jb4 previously documented assessment. Patient and/or family updated on plan of care and expected duration. Pain level reassessed. Vital Signs: 12:22 BP 123 / 73; Pulse 117; Resp 16; Temp 98.9; Pulse Ox 97% on R/A; ss 15:26 BP 181 / 92; Pulse 109; Resp 16; Pulse Ox 100% on R/A; jb4 16:30 BP 129 / 99; Pulse 112; Resp 16; Pulse Ox 100% on 2 lpm NC; jb4 17:45 BP 128 / 62; Pulse 108; Resp 16; Pulse Ox 98% on 2 lpm NC; jb4 19:00 BP 146 / 87; Pulse 110; Resp 16; Pulse Ox 98% on 2 lpm NC; jb4 [place] Coma Score: 16:38 Eye Response: spontaneous(4). Motor Response: obeys commands(6). Verbal Response: shmuel oriented(5). Total: 15. ED Course: 12:05 Patient arrived in ED. im 12:07 Addi Menjivar MD is Attending Physician. shmuel 12:20 Triage completed. ss 12:20 Arm band placed on right wrist. ss 12:32 CT Head Brain wo Cont In Process Unspecified. EDMS 12:48 XRAY Chest (1 view) In Process Unspecified. EDMS 13:27 Missed attempt(s): 22 gauge in right forearm. Bleeding controlled, band aid applied, ts3 catheter tip intact. 13:28 Initial lab(s) drawn, by ED staff, sent to lab. Inserted saline lock: 24 gauge in right ts3 hand, using aseptic technique. Blood collected. Flushed with 10 mL NS. 15:30 Patient has correct armband on for positive identification. Bed in low position. Call jb4 light in reach. Side rails up X 1. Provided Education on: plan of care to family. 15:30 No provider procedures requiring assistance completed. jb4 15:58 placed in purewick. ts3 16:43 John Owens MD is Hospitalizing Provider. shmuel 19:00 Patient admitted, IV remains in place. jb4 Administered Medications: 15:26 Drug: NS 0.9% IV 500 ml 500 ml IV at 1 bolus once; to be given as a bolus over 30 jb4 minutes Volume: 500 ml; Route: IV; Rate: 1 bolus; Site: right forearm; 16:00 Follow up: Response: No adverse reaction; IV Status: Completed infusion; IV Intake: jb4 500ml 15:26 Drug: metoCLOPramide IVP 10 mg IVP once; over 1 to 2 minutes Route: IVP; Site: right jb4 forearm; 16:00 Follow up: Response: No adverse reaction; Marked relief of symptoms jb4 15:26 Drug: diphenhydrAMINE IVP 25 mg IVP once Route: IVP; Site: right forearm; jb4 16:00 Follow up: Response: No adverse reaction; Marked relief of symptoms jb4 15:26 Drug: Ketorolac IVP 15 mg IVP once Route: IVP; Site: right forearm; jb4 16:00 Follow up: Response: No adverse reaction; Marked relief of symptoms jb4 Intake: 16:00 IV: 500ml; Total: 500ml. jb4 Outcome: 16:45 Decision to Hospitalize by Provider. shmuel 19:37 Admitted to Tele accompanied by tech, via stretcher, room 415, vc1 19:37 Patient left the ED. vc1 Signatures: Dispatcher [employer] EDAddi Trinidad MD MD cha Blanchard, Shelby, FINA RN Macario Feliz RN RN jb4 Kellee Zaldivar RN RN vc1 Margarita Contreras Taisha ts3 Corrections: (The following items were deleted from the chart) 19:10 16:30 BP 129 / 99; Pulse 112bpm; Resp 16bpm; Pulse Ox 100% RA; jb4 jb4 19:10 17:45 BP 128 / 62; Pulse 108bpm; Resp 16bpm; Pulse Ox 98%; jb4 jb4
--- NOTE | 2024-12-21 18:14 | P.HP ---
Certification for Inpatient Patient admitted to: Observation With expected LOS: <2 Midnights Patient will require the following post-hospital care: [facility]sp Practitioner: I am a practitioner with admitting privileges, knowledge of patient current condition, hospital course, and medical plan of care. Services: Services provided to patient in accordance with Admission requirements found in Title 42 Section 412.3 of the Code of Federal Regulations <VinodHerman - Last Filed: 12/21/24 18:06> Patient History Date of Service: 12/21/24 Reason for admission: Headache History of Present Illness: 89-year-old female prior medical history of advanced dementia, hypertension, hypothyroid, TIA presents ER via wheelchair from [facility] for headache waxing and waning since recent TIA approximately 2 weeks ago treated here at [facility]. Family endorses they did not notice the headaches before while she was in the hospital, or upstairs in rehab afterwards. However, after arriving at her facility she started having headaches approximately every other day worsening in severity. Light sensitivity, squeezing sensation, 10/10 pain. Denies any issues with that balance, dizziness, ringing in the ears, visual disturbances. Residual left upper extremity, left lower extremity deficit. ER course: On arrival to ED and ECG was completed along with vital signs. Patient noted to be hypertensive with BP 181/92. Patient underwent CT imaging of the head with no acute abnormalities chest x-ray was completed without concern for cause of headache. Patient given ketorolac IVP x 1 with mild relief, diphenhydramine IVP 25 mg x 1, Reglan IVP 10 mg x 1 and 500 mL liter normal saline bolus. Home medications list reviewed: Yes - Past Medical/Surgical History Has patient received pneumonia vaccine in the past: No Diabetic: No -: Hypertension, hyperlipidemia, dementia -: TIA -: Hypothyroidism -: No significant past surgical history - Social History Smoking Status: Never smoker Alcohol use: No CD- Drugs: No Caffeine use: No Place of Residence: Skilled Nursing <Herman Brock - Last Filed: 12/21/24 18:06> Date of Service: 12/23/24 <John Owens - Last Filed: 12/23/24 06:42> Allergies Penicillins Allergy (Verified 11/11/24 04:28) Anaphylaxis Sulfa (Sulfonamide Antibiotics) Allergy (Verified 11/14/24 19:43) Itching/Hives/Rash Home Medications: Acetaminophen [Tylenol*] 650 mg PO Q4H PRN tab 12/01/24 Atorvastatin Calcium [Lipitor] 40 mg PO BEDTIME tab 12/01/24 Cyanocobalamin [Vitamin B-12*] 1,000 mcg PO DAILY tab 12/01/24 Diclofenac Sodium [Voltaren Arthritis Pain] 2 appl TOP DAILY tube 12/01/24 Levothyroxine [Synthroid*] 0.075 mg PO DAILYAC tab 12/01/24 Losartan Potassium [Cozaar*] 50 mg PO DAILY 12/01/24 Magnesium Lysinate Glycinate 1 tab PO BID 12/01/24 Ondansetron [Zofran (Odt)*] 4 mg PO Q4H PRN tab 12/01/24 hydroCHLOROthiazide [Hydrochlorothiazide*] 12.5 mg PO DAILY cap 12/01/24 Clopidogrel Bisulfate [Plavix] 75 mg PO DAILY 12/22/24 Loratadine [Claritin] 10 mg PO DAILY 12/22/24 Review of Systems 10-point ROS is otherwise unremarkable <Herman Brock - Last Filed: 12/21/24 18:06> Physical Examination - Physical Exam General: Alert, Oriented x2, Cooperative, Cachectic, Demented HEENT: Atraumatic, Normocephalic, PERRLA, Mucous membr. moist/pink Neck: Supple, 2+ carotid pulse no bruit, JVD not distended, No Thyromegaly, No LAD Respiratory: Clear to auscultation bilaterally, Normal air movement, Diminished (Bases) Cardiovascular: No edema, Normal pulses, Regular rate/rhythm, Normal S1 S2 Capillary refill: <2 Seconds Gastrointestinal: Normal bowel sounds, Soft and benign, Non-distended Musculoskeletal: No clubbing, No contractures, No erythema Integumentary: No rashes, No breakdown, No significant lesion Neurological: Sensation intact, Dementia External genitalia: Deferred Rectal: Deferred - Studies Laboratory Data (last 24 hrs) 12/21/24 12/21/24 12/21/24 13:25 13:25 13:25 WBC 8.00 Hgb 12.2 Hct 37.1 Plt Count 378 PT 15.0 H INR 1.34 Sodium 137 Potassium 3.7 BUN 37 H Creatinine 1.34 H Glucose 96 Magnesium 2.5 H Total Bilirubin 0.6 AST 16 ALT 21 Alkaline Phosphatase 58 <Herman Brock - Last Filed: 12/21/24 18:06> Assessment and Plan - Plan Assessment: 89-year-old female prior medical history of advanced dementia, hypertension, hypothyroid, TIA presents ER via wheelchair from [facility] for headache waxing and waning since recent TIA approximately 2 weeks ago treated here at [facility]. Family endorses they did not notice the headaches before while she was in the hospital, or upstairs in rehab afterwards. However, after arriving at her facility she started having headaches approximately every other day worsening in severity. Light sensitivity, squeezing sensation, 10/10 pain. Denies any issues with that balance, dizziness, ringing in the ears, visual disturbances. Residual left upper extremity, left lower extremity deficit. Plan: Headache Weakness Concern for CVA CT head nonconcerning for acute abnormality IV fluid NS at 50 mL/h, gentle rehydration ECG with sinus tachycardia. Advised by RN in ED patient had short run of V. tach on monitor, asymptomatic. Monitor CBC, BMP Ibuprofen 400 mg every 4 hours as needed for headache Hypertension Hypothyroidism Recent TIA Resume home meds once med rec complete Dispo: Anticipate back to [facility] with headache pain control and stroke rule out Discharge Plan: Skilled Nursing Plan to discharge in: 24 Hours - Advance Directives Does patient have a Living Will: No Does patient have a Durable POA for Healthcare: Yes - Code Status/Comfort Care Code Status Assessed: Yes (DNR) Critical Care: No <Herman Brock - Last Filed: 12/21/24 18:06> Physician Review: Patient Assessed, Agree with Above Assessment and Plan <John Owens - Last Filed: 12/23/24 06:42>
[2024-12-21 19:54] LABS: Sqamous Epithelial <5 /HPF (None Seen); Urine Culture Reflex Order NOT NEEDED; Urine Microscopic Reflex YN ORDER UMIC
[2024-12-21] MEDS: NA CHLORIDE 0.9% 1,000 ML IV SCH (20:07)
[2024-12-21 20:12] VITALS: O2SAT 98
[2024-12-22] MEDS: HEPARIN 5000 UNIT/ML 1 ML VIAL SQ SCH (01:29)
[2024-12-22 04:40] LABS: Absolute Lymphocytes (CBC) 0.8 K/uL (0.7-4.9); Hematocrit 26.2 % (36.0-45.0); Hemoglobin 9.0 g/dL (12.0-15.0); MCH 30.4 pg (27.0-35.0); MCHC 34.3 g/dL (32.0-36.0); MCV 88.6 fL (80-100); MPV 6.6 fL (7.6-11.3); Nucleated RBC Absolute Count 0.0 (0-0); Nucleated Red Blood Cells % 0.0 % (0-0); RBC Red Blood Cell Count 2.96 M/uL (3.86-4.86); White Blood Count 6.50 thou/uL (4.3-10.9)
[2024-12-22 04:43] LABS: Anion Gap 9.8 mEq/L (5.0-15.0); BUN Blood Urea Nitrogen 33.0 mg/dL (7-18); Glucose Level 99.0 mg/dL (74-106); Potassium 3.8 mEq/L (3.5-5.1)
--- NOTE | 2024-12-22 12:38 | RAD REPORT ---
EXAMINATION: MRI BRAIN WITHOUT AND WITH CONTRAST CLINICAL INDICATION: Persistent right-sided headache / hx of infarct TECHNIQUE: Multiplanar multisequence MR images of the brain were obtained without and with intravenou s contrast. Unless otherwise specified, incidental findings do not require dedicated imaging follow-up. COMPARISON: 12/21/2024 FINDINGS: INTRACRANIAL: Large area of elevated FLAIR signal involving the right temporal parietal lobe compatib le with history of infarct in this region. Some normalization of ADC signal occurred however there continues to be areas within this large infarction with diminished ADC map signal. Persistent diffusi on-weighted sequences. There is postcontrast enhancement seen which is typical of breakdown of the blood-brain barrier related to infarction evolution. Serpiginous elevated noncontrast T1 signal also seen suggesting necrosis. VASCULATURE: Normal signal voids in the larger intracranial arteries and dural venous sinuses. SINUSES: Left mastoid effusion. BONE: The marrow signal pattern is within normal limits. CONTRAST: No additional areas of pathologic postcontrast enhancement to indicate tumor or infection. IMPRESSION: Large area of subacute CVA involving the right temporal and parietal lobe as detailed with signal shmuel nges and postcontrast enhancement typical of infarct evolution. No acute bleed, hydrocephalus or midline shift seen.
--- NOTE | 2024-12-22 15:53 | P.PN ---
Date of Service: 12/22/24 Subjective: Patient has a history of dementia and I am unable to elicit any kind of history from her. No family at bedside. I spoke with her daughter over the phone for quite some time. She states that since her stay at [facility] [place] [facility] she has been experiencing right-sided headaches. Her daughter states she has not been running any fevers. Review of Systems 10-point ROS is otherwise unremarkable Physical Examination - Physical Exam General: Alert, Oriented x2, Cooperative, Cachectic, Demented HEENT: Atraumatic, Normocephalic, PERRLA, Mucous membr. moist/pink Neck: Supple, 2+ carotid pulse no bruit, JVD not distended, No Thyromegaly, No LAD Respiratory: Clear to auscultation bilaterally, Normal air movement, Diminished (Bases) Cardiovascular: No edema, Normal pulses, Regular rate/rhythm, Normal S1 S2 Capillary refill: <2 Seconds Gastrointestinal: Normal bowel sounds, Soft and benign, Non-distended Musculoskeletal: No clubbing, No contractures, No erythema Integumentary: No rashes, No breakdown, No significant lesion Neurological: Sensation intact, Dementia External genitalia: Deferred Rectal: Deferred - Studies Laboratory Data (last 24 hrs) 12/21/24 12/21/24 12/21/24 13:25 13:25 13:25 WBC 8.00 Hgb 12.2 Hct 37.1 Plt Count 378 PT 15.0 H INR 1.34 Sodium 137 Potassium 3.7 BUN 37 H Creatinine 1.34 H Glucose 96 Magnesium 2.5 H Total Bilirubin 0.6 AST 16 ALT 21 Alkaline Phosphatase 58 Assessment and Plan - Plan Assessment: 89-year-old female prior medical history of advanced dementia, hypertension, hypothyroid, TIA presents ER via wheelchair from [facility] for headache waxing and waning since recent TIA approximately 2 weeks ago treated here at [facility]. Family endorses they did not notice the headaches before while she was in the hospital, or upstairs in rehab afterwards. However, after arriving at her facility she started having headaches approximately every other day worsening in severity. Light sensitivity, squeezing sensation, 10/10 pain. Denies any issues with that balance, dizziness, ringing in the ears, visual disturbances. Residual left upper extremity, left lower extremity deficit. 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 Continue to monitor on telemetry. Magnesium level within normal limits. Potassium within normal limit - Continue levothyroxine Headache Weakness Concern for CVA CT head nonconcerning for acute abnormality IV fluid NS at 50 mL/h, gentle rehydration ECG with sinus tachycardia. Advised by RN in ED patient had short run of V. tach on monitor, asymptomatic. Monitor CBC, BMP Ibuprofen 400 mg every 4 hours as needed for headache Hypertension Hypothyroidism Recent TIA Resume home meds once med rec complete Dispo: Anticipate back to [facility] with headache pain control and stroke rule out Discharge Plan: [facility]iary Plan to discharge in: 24 Hours - Advance Directives Does patient have a Living Will: No Does patient have a Durable POA for Healthcare: Yes - Code Status/Comfort Care Code Status Assessed: Yes (DNR) Critical Care: No
[2024-12-22] MEDS: ACETAMINOPHEN 325 MG TABLET PO PRN (16:21)
[2024-12-22] MEDS ORDERED: ATORVASTATIN 40 MG TAB PO SCH (21:00)
[2024-12-23] MEDS ORDERED: LEVOTHYROXINE SOD 0.075 MG TAB PO SCH (06:30)
[2024-12-23] MEDS ORDERED: CLOPIDOGREL 75 MG TABLET PO SCH (09:00)
[2024-12-23] MEDS ORDERED: LOSARTAN POTASSIUM 50 MG TABLET PO SCH (09:00)
[2024-12-23] MEDS: KETOROLAC 30 MG/ML INJ IV PRN (13:40)
--- NOTE | 2024-12-23 16:15 | P.PN ---
Date of Service: 12/24/19 Subjective: Daughter Alyson at bedside today. Her mom is asleep. She states she continues to endorse pain over the right side of the head. In addition she states she had a fever last night Review of Systems 10-point ROS is otherwise unremarkable Physical Examination - Physical Exam General: Alert, Oriented x2, Cooperative, Cachectic, Demented HEENT: Atraumatic, Normocephalic, PERRLA, Mucous membr. moist/pink Neck: Supple, 2+ carotid pulse no bruit, JVD not distended, No Thyromegaly, No LAD Respiratory: Clear to auscultation bilaterally, Normal air movement, Diminished (Bases) Cardiovascular: No edema, Normal pulses, Regular rate/rhythm, Normal S1 S2 Capillary refill: <2 Seconds Gastrointestinal: Normal bowel sounds, Soft and benign, Non-distended Musculoskeletal: No clubbing, No contractures, No erythema Integumentary: No rashes, No breakdown, No significant lesion Neurological: Sensation intact, Dementia External genitalia: Deferred Rectal: Deferred - Studies Laboratory Data (last 24 hrs) 12/21/24 12/21/24 12/21/24 13:25 13:25 13:25 WBC 8.00 Hgb 12.2 Hct 37.1 Plt Count 378 PT 15.0 H INR 1.34 Sodium 137 Potassium 3.7 BUN 37 H Creatinine 1.34 H Glucose 96 Magnesium 2.5 H Total Bilirubin 0.6 AST 16 ALT 21 Alkaline Phosphatase 58 Assessment and Plan - Plan Assessment: 89-year-old female prior medical history of advanced dementia, hypertension, hypothyroid, TIA presents ER via wheelchair from [facility] for headache waxing and waning since recent TIA approximately 2 weeks ago treated here at [facility]. Family endorses they did not notice the headaches before while she was in the hospital, or upstairs in rehab afterwards. However, after arriving at her facility she started having headaches approximately every other day worsening in severity. Light sensitivity, squeezing sensation, 10/10 pain. Denies any issues with that balance, dizziness, ringing in the ears, visual disturbances. Residual left upper extremity, left lower extremity deficit. 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 Continue to monitor on telemetry. Magnesium level within normal limits. Potassium within normal limit - Continue levothyroxine Headache Weakness Concern for CVA CT head nonconcerning for acute abnormality IV fluid NS at 50 mL/h, gentle rehydration ECG with sinus tachycardia. Advised by RN in ED patient had short run of V. tach on monitor, asymptomatic. Monitor CBC, BMP Ibuprofen 400 mg every 4 hours as needed for headache Hypertension Hypothyroidism Recent TIA Resume home meds once med rec complete Dispo: Anticipate back to [facility] with headache pain control and stroke rule out Discharge Plan: [facility] Plan to discharge in: 24 Hours - Advance Directives Does patient have a Living Will: No Does patient have a Durable POA for Healthcare: Yes - Code Status/Comfort Care Code Status Assessed: Yes (DNR) Critical Care: No
[2024-12-23] MEDS: Levofloxacin500mg IV 500 MG/100 ML BAG IV SCH (17:02)
[2024-12-23] MEDS: ONDANSETRON 4 MG/2 ML VIAL IV PRN (19:22)
[2024-12-23] MEDS: PANTOPRAZOLE 40 MG INJ IVP ONE (19:43)
[2024-12-23] MEDS: SODIUM CHLORIDE 0.9% 10ML INJ IV PRN (19:43)
[2024-12-23 20:05] LABS: Sqamous Epithelial <5 /HPF (None Seen); Urine Culture Reflex Order NOT NEEDED; Urine Microscopic Reflex YN ORDER UMIC
--- NOTE | 2024-12-23 20:29 | RAD REPORT ---
EXAMINATION: ONE VIEW CHEST XR CLINICAL INDICATION: Fevers TECHNIQUE: Frontal chest projection is submitted. Examination is limited by patient positioning and t echnique. COMPARISON: 12/21/2024 FINDINGS: Mild interstitial pulmonary edema. Small pleural effusions likely. Hazy opacity in the left lung base may represent developing infiltrate/pneumonia. The heart is mildly enlarged in size. IMPRESSION: Possible developing infiltrate/atelectasis in the left base.
[2024-12-23] MEDS: TOPIRAMATE 25 MG TAB PO SCH (20:56)
[2024-12-24] MEDS: PANTOPRAZOLE 40MG TABLET PO SCH (05:18)
[2024-12-24 05:24] VITALS: BMI 28.8
[2024-12-24 09:28] LABS: Absolute Lymphocytes (CBC) 0.7 K/uL (0.7-4.9); Hematocrit 27.9 % (36.0-45.0); Hemoglobin 9.3 g/dL (12.0-15.0); MCH 29.8 pg (27.0-35.0); MCHC 33.2 g/dL (32.0-36.0); MCV 89.7 fL (80-100); MPV 6.8 fL (7.6-11.3); Nucleated RBC Absolute Count 0.0 (0-0); Nucleated Red Blood Cells % 0.0 % (0-0); RBC Red Blood Cell Count 3.11 M/uL (3.86-4.86); White Blood Count 6.20 thou/uL (4.3-10.9)
[2024-12-24 09:50] LABS: ALT/SGPT 15.0 U/L (13-56); AST/SGOT 22.0 U/L (15-37); Albumin 1.9 g/dL (3.4-5.0); Albumin/Globulin Ratio 0.5 (1.1-1.8); Alkaline Phosphatase 55.0 U/L (45-117); Anion Gap 9.1 mEq/L (5.0-15.0); BUN Blood Urea Nitrogen 18.0 mg/dL (7-18); Globulin 4.0 g/dL (2.3-3.5); Glucose Level 115.0 mg/dL (74-106); Potassium 4.1 mEq/L (3.5-5.1)
--- NOTE | 2024-12-24 12:59 | P.PN ---
Date of Service: 12/24/24 Subjective: Doing better today. Her daughter is at bedside. She is more alert and talkative. She is trying to eat something we discussed hydrating and getting adequate nutrition. Review of Systems 10-point ROS is otherwise unremarkable Physical Examination - Physical Exam General: Alert, Oriented x2, Cooperative, Cachectic, Demented HEENT: Atraumatic, Normocephalic, PERRLA, Mucous membr. moist/pink Neck: Supple, 2+ carotid pulse no bruit, JVD not distended, No Thyromegaly, No LAD Respiratory: Clear to auscultation bilaterally, Normal air movement, Diminished (Bases) Cardiovascular: No edema, Normal pulses, Regular rate/rhythm, Normal S1 S2 Capillary refill: <2 Seconds Gastrointestinal: Normal bowel sounds, Soft and benign, Non-distended Musculoskeletal: No clubbing, No contractures, No erythema Integumentary: No rashes, No breakdown, No significant lesion Neurological: Sensation intact, Dementia External genitalia: Deferred Rectal: Deferred - Studies Laboratory Data (last 24 hrs) 12/21/24 12/21/24 12/21/24 13:25 13:25 13:25 WBC 8.00 Hgb 12.2 Hct 37.1 Plt Count 378 PT 15.0 H INR 1.34 Sodium 137 Potassium 3.7 BUN 37 H Creatinine 1.34 H Glucose 96 Magnesium 2.5 H Total Bilirubin 0.6 AST 16 ALT 21 Alkaline Phosphatase 58 Assessment and Plan - Plan Assessment: 89-year-old female prior medical history of advanced dementia, hyperte nsion, hypothyroid, TIA presents ER via wheelchair from [facility] for headache waxing and waning since recent TIA approximately 2 weeks ago treated here at [facility]. Family endorses they did not notice the headaches before while she was in the hospital, or upstairs in rehab afterwards. However, after arriving at her facility she started having headaches approximately every other day worsening in severity. Light sensitivity, squeezing sensation, 10/10 pain. Denies any issues with that balance, dizziness, ringing in the ears, visual disturbances. Residual left upper extremity, left lower extremity deficit. 12/24 -Chest x-ray reviewed, continue Levaquin - Overall improved. She is more alert and more talkative although it is still difficult to understand her. 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 Continue to monitor on telemetry. Magnesium level within normal limits. Potassium within normal limit - Continue levothyroxine Headache Weakness Concern for CVA CT head nonconcerning for acute abnormality IV fluid NS at 50 mL/h, gentle rehydration ECG with sinus tachycardia. Advised by RN in ED patient had short run of V. tach on monitor, asymptomatic. Monitor CBC, BMP Ibuprofen 400 mg every 4 hours as needed for headache Hypertension Hypothyroidism Recent TIA Resume home meds once med rec complete Dispo: Anticipate back to [facility] with headache pain control and stroke rule out Discharge Plan: Care Home Plan to discharge in: 24 Hours - Advance Directives Does patient have a Living Will: No Does patient have a Durable POA for Healthcare: Yes - Code Status/Comfort Care Code Status Assessed: Yes (DNR) Critical Care: No
[2024-12-24] MEDS: TRAMADOL HCL 50 MG TAB PO PRN (19:21)
[2024-12-24] MEDS: LOSARTAN POTASSIUM 50 MG TABLET PO ONE (21:30)
[2024-12-24] MEDS: HYDRALAZINE HCL 20 MG/ML VIAL IV PRN (23:00)
[2024-12-25 08:15] LABS: Absolute Lymphocytes (CBC) 0.6 K/uL (0.7-4.9); Hematocrit 29.4 % (36.0-45.0); Hemoglobin 10.0 g/dL (12.0-15.0); MCH 30.3 pg (27.0-35.0); MCHC 34.0 g/dL (32.0-36.0); MCV 89.2 fL (80-100); MPV 7.1 fL (7.6-11.3); Nucleated RBC Absolute Count 0.0 (0-0); Nucleated Red Blood Cells % 0.1 % (0-0); RBC Red Blood Cell Count 3.30 M/uL (3.86-4.86); White Blood Count 8.40 thou/uL (4.3-10.9)
[2024-12-25 08:28] LABS: AST/SGOT 15 U/L (15-37); Albumin 1.9 g/dL (3.4-5.0); Albumin/Globulin Ratio 0.4 (1.1-1.8); Alkaline Phosphatase 58 U/L (45-117); Anion Gap 11.2 mEq/L (5.0-15.0); BUN Blood Urea Nitrogen 20 mg/dL (7-18); Globulin 4.3 g/dL (2.3-3.5); Glucose Level 112 mg/dL (74-106); Potassium 4.2 mEq/L (3.5-5.1)
[2024-12-25 08:34] LABS: ALT/SGPT < 14 U/L (13-56)
--- NOTE | 2024-12-25 13:50 | P.PN ---
Date of Service: 12/25/24 Subjective: More alert this morning. No acute events overnight. She denies headaches today. We discussed drinking more water. Review of Systems 10-point ROS is otherwise unremarkable Physical Examination - Physical Exam General: Alert, Oriented x2, Cooperative, Cachectic, Demented HEENT: Atraumatic, Normocephalic, PERRLA, Mucous membr. moist/pink Neck: Supple, 2+ carotid pulse no bruit, JVD not distended, No Thyromegaly, No LAD Respiratory: Clear to auscultation bilaterally, Normal air movement, Diminished (Bases) Cardiovascular: No edema, Normal pulses, Regular rate/rhythm, Normal S1 S2 Capillary refill: <2 Seconds Gastrointestinal: Normal bowel sounds, Soft and benign, Non-distended Musculoskeletal: No clubbing, No contractures, No erythema Integumentary: No rashes, No breakdown, No significant lesion Neurological: Sensation intact, Dementia External genitalia: Deferred Rectal: Deferred - Studies Laboratory Data (last 24 hrs) 12/21/24 12/21/24 12/21/24 13:25 13:25 13:25 WBC 8.00 Hgb 12.2 Hct 37.1 Plt Count 378 PT 15.0 H INR 1.34 Sodium 137 Potassium 3.7 BUN 37 H Creatinine 1.34 H Glucose 96 Magnesium 2.5 H Total Bilirubin 0.6 AST 16 ALT 21 Alkaline Phosphatase 58 Assessment and Plan - Plan Assessment: 89-year-old female prior medical history of advanced dementia, hypertension, hypothyroid, TIA presents ER via wheelchair from [facility] for headache waxing and waning since recent TIA approximately 2 weeks ago treated here at [facility]. Family endorses they did not notice the headaches before while she was in the hospital, or upstairs in rehab afterwards. However, after arriving at her facility she started having headaches approximately every other day worsening in severity. Light sensitivity, squeezing sensation, 10/10 pain. Denies any issues with that balance, dizziness, ringing in the ears, visual disturbances. Residual left upper extremity, left lower extremity deficit. 12/25 - More awake and alert this morning - Continue Topamax to schedule - Tramadol as needed for headache - Continue losartan, hydrochlorothiazide - DVT prophylaxis with heparin 12/24 -Chest x-ray reviewed, continue Levaquin - Overall improved. She is more alert and more talkative although it is still difficult to understand her. 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 Continue to monitor on telemetry. Magnesium level within normal limits. Potassium within normal limit - Continue levothyroxine Headache Weakness Concern for CVA CT head nonconcerning for acute abnormality IV fluid NS at 50 mL/h, gentle rehydration ECG with sinus tachycardia. Advised by RN in ED patient had short run of V. tach on monitor, asymptomatic. Monitor CBC, BMP Ibuprofen 400 mg every 4 hours as needed for headache Hypertension Hypothyroidism Recent TIA Resume home meds once med rec complete Dispo: Anticipate back to [facility] with headache pain control and stroke rule out Discharge Plan: [facility] Plan to discharge in: 24 Hours - Advance Directives Does patient have a Living Will: No Does patient have a Durable POA for Healthcare: Yes - Code Status/Comfort Care Code Status Assessed: Yes (DNR) Critical Care: No
--- NOTE | 2024-12-26 07:07 | P.PN ---
Date of Service: 12/26/24 Subjective: Review of Systems 10-point ROS is otherwise unremarkable Physical Examination - Physical Exam General: Alert, Oriented x2, Cooperative, Cachectic, Demented HEENT: Atraumatic, Normocephalic, PERRLA, Mucous membr. moist/pink Neck: Supple, 2+ carotid pulse no bruit, JVD not distended, No Thyromegaly, No LAD Respiratory: Clear to auscultation bilaterally, Normal air movement, Diminished (Bases) Cardiovascular: No edema, Normal pulses, Regular rate/rhythm, Normal S1 S2 Capillary refill: <2 Seconds Gastrointestinal: Normal bowel sounds, Soft and benign, Non-distended Musculoskeletal: No clubbing, No contractures, No erythema Integumentary: No rashes, No breakdown, No significant lesion Neurological: Sensation intact, Dementia External genitalia: Deferred Rectal: Deferred - Studies Laboratory Data (last 24 hrs) 12/21/24 12/21/24 12/21/24 13:25 13:25 13:25 WBC 8.00 Hgb 12.2 Hct 37.1 Plt Count 378 PT 15.0 H INR 1.34 Sodium 137 Potassium 3.7 BUN 37 H Creatinine 1.34 H Glucose 96 Magnesium 2.5 H Total Bilirubin 0.6 AST 16 ALT 21 Alkaline Phosphatase 58 Assessment and Plan - Plan Assessment: 89-year-old female prior medical history of advanced dementia, hypertension, hypothyroid, TIA presents ER via wheelchair from [facility] for headache waxing and waning since recent TIA approximately 2 weeks ago treated here at [facility]. Family endorses they did not notice the headaches before while she was in the hospital, or upstairs in rehab afterwards. However, after arriving at her facility she started having headaches approximately every other day worsening in severity. Light sensitivity, squeezing sensation, 10/10 pain. Denies any issues with that balance, dizziness, ringing in the ears, visual disturbances. Residual left upper extremity, left lower extremity deficit. 12/26 - Discharge today - Follow-up with neurology as outpatient - Continue losartan and hydrochlorothiazide - Will prescribe tramadol and Topamax upon discharge - Follow-up with primary care provider - CBC and BMP reviewed - Schedule senna S twice daily at bedtime - Acute kidney injury resolved 12/25 - More awake and alert this morning - Continue Topamax to schedule - Tramadol as needed for headache - Continue losartan, hydrochlorothiazide - DVT prophylaxis with heparin 12/24 -Chest x-ray reviewed, continue Levaquin - Overall improved. She is more alert and more talkative although it is still difficult to understand her. 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 Continue to monitor on telemetry. Magnesium level within normal limits. Potassium within normal limit - Continue levothyroxine Headache Weakness Concern for CVA CT head nonconcerning for acute abnormality IV fluid NS at 50 mL/h, gentle rehydration ECG with sinus tachycardia. Advised by RN in ED patient had short run of V. tach on monitor, asymptomatic. Monitor CBC, BMP Ibuprofen 400 mg every 4 hours as needed for headache Hypertension Hypothyroidism Recent TIA Resume home meds once med rec complete Dispo: Anticipate back to [facility] with headache pain control and stroke rule out Discharge Plan: [facility] Plan to discharge in: 24 Hours - Advance Directives Does patient have a Living Will: No Does patient have a Durable POA for Healthcare: Yes - Code Status/Comfort Care Code Status Assessed: Yes (DNR) Critical Care: No
[2024-12-26 07:51] LABS: Absolute Lymphocytes (CBC) 0.7 K/uL (0.7-4.9); Hematocrit 27.4 % (36.0-45.0); Hemoglobin 9.0 g/dL (12.0-15.0); MCH 29.4 pg (27.0-35.0); MCHC 32.8 g/dL (32.0-36.0); MCV 89.6 fL (80-100); MPV 6.9 fL (7.6-11.3); Nucleated RBC Absolute Count 0.0 (0-0); Nucleated Red Blood Cells % 0.0 % (0-0); RBC Red Blood Cell Count 3.06 M/uL (3.86-4.86); White Blood Count 8.80 thou/uL (4.3-10.9)
[2024-12-26 07:54] LABS: Anion Gap 9.8 mEq/L (5.0-15.0); BUN Blood Urea Nitrogen 22.0 mg/dL (7-18); Glucose Level 104.0 mg/dL (74-106); Potassium 3.8 mEq/L (3.5-5.1)
[2024-12-26 12:01] VITALS: BP 156/77; TEMP 98
--- NOTE | 2024-12-26 13:14 | P.DS ---
Admission Date: 12/22/24 Discharge Date: 12/26/24 Disposition: ROUTINE DISCHARGE Discharge Condition: GOOD Reason for Admission: Headache Brief History of Present Illness: 89-year-old female prior medical history of advanced dementia, hypertension, hypothyroid, TIA presents ER via wheelchair from [facility] for headache waxing and waning since recent TIA approximately 2 weeks ago treated here at [facility]. Family endorses they did not notice the headaches before while she was in the hospital, or upstairs in rehab afterwards. However, after arriving at her facility she started having headaches approximately every other day worsening in severity. Light sensitivity, squeezing sensation, 10/10 pain. Denies any issues with that balance, dizziness, ringing in the ears, visual disturbances. Residual left upper extremity, left lower extremity deficit. ER course: On arrival to ED and ECG was completed along with vital signs. Patient noted to be hypertensive with BP 181/92. Patient underwent CT imaging of the head with no acute abnormalities chest x-ray was completed without concern for cause of headache. Patient given ketorolac IVP x 1 with mild relief, diphenhydramine IVP 25 mg x 1, Reglan IVP 10 mg x 1 and 500 mL liter normal saline bolus. Hospital Course: Physical Examination - Physical Exam General: Alert, Oriented x2, Cooperative, Cachectic, Demented HEENT: Atraumatic, Normocephalic, PERRLA, Mucous membr. moist/pink Neck: Supple, 2+ carotid pulse no bruit, JVD not distended, No Thyromegaly, No LAD Respiratory: Clear to auscultation bilaterally, Normal air movement, Diminished (Bases) Cardiovascular: No edema, Normal pulses, Regular rate/rhythm, Normal S1 S2 Capillary refill: <2 Seconds Gastrointestinal: Normal bowel sounds, Soft and benign, Non-distended Musculoskeletal: No clubbing, No contractures, No erythema Integumentary: No rashes, No breakdown, No significant lesion Neurological: Sensation intact, Dementia External genitalia: Deferred Rectal: Deferred - Studies Laboratory Data (last 24 hrs) 12/21/24 12/21/24 12/21/24 13:25 13:25 13:25 WBC 8.00 Hgb 12.2 Hct 37.1 Plt Count 378 PT 15.0 H INR 1.34 Sodium 137 Potassium 3.7 BUN 37 H Creatinine 1.34 H Glucose 96 Magnesium 2.5 H Total Bilirubin 0.6 AST 16 ALT 21 Alkaline Phosphatase 58 Assessment and Plan - Plan Assessment: 89-year-old female prior medical history of advanced dementia, hypertension, hypothyroid, TIA presents ER [facility] wheelchair [facility] for headache waxing and waning since recent TIA approximately 2 weeks ago treated here at [facility]. Family endorses they did not notice the headaches before while she was in the hospital, or upstairs in rehab afterwards. However, after arriving at her facility she started having headaches approximately every other day worsening in severity. Light sensitivity, squeezing sensation, 10/10 pain. Denies any issues with that balance, dizziness, ringing in the ears, visual disturbances. Residual left upper extremity, left lower extremity deficit. 12/26 - Discharge today - Follow-up with neurology as outpatient - Continue losartan and hydrochlorothiazide - Will prescribe tramadol and Topamax upon discharge - Follow-up with primary care provider - CBC and BMP reviewed - Schedule senna S twice daily at bedtime - Acute kidney injury resolved 12/25 - More awake and alert this morning - Continue Topamax to schedule - Tramadol as needed for headache - Continue losartan, hydrochlorothiazide - DVT prophylaxis with heparin 12/24 -Chest x-ray reviewed, continue Levaquin - Overall improved. She is more alert and more talkative although it is still difficult to understand her. 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 Continue to monitor on telemetry. Magnesium level within normal limits. Potassium within normal limit - Continue levothyroxine Headache Weakness Concern for CVA CT head nonconcerning for acute abnormality IV fluid NS at 50 mL/h, gentle rehydration ECG with sinus tachycardia. Advised by RN in ED patient had short run of V. tach on monitor, asymptomatic. Monitor CBC, BMP Ibuprofen 400 mg every 4 hours as needed for headache Hypertension Hypothyroidism Recent TIA Resume home meds once med rec complete Dispo: Anticipate back to [facility] with headache pain control and stroke rule out Discharge Plan: [facility] Plan to discharge in: 24 Hours - Advance Directives Does patient have a Living Will: No Does patient have a Durable POA for Healthcare: Yes - Code Status/Comfort Care Code Status Assessed: Yes (DNR) Critical Care: No Vital Signs/Physical Exam: Temp Pulse Resp BP Pulse Ox 98.0 F 99 H 16 156/77 H 96 12/26/24 12:00 12/26/24 12:00 12/26/24 12:00 12/26/24 12:00 12/26/24 12:00 Laboratory Data at Discharge: WBC 8.80 thou/uL (4.3-10.9) 12/26/24 07:30 Hgb 9.0 g/dL (12.0-15.0) L D 12/26/24 07:30 Hct 27.4 % (36.0-45.0) L 12/26/24 07:30 Plt Count 270 thou/uL (152-406) 12/26/24 07:30 PT 15.0 SECONDS (10-13.0) H 12/21/24 13:25 INR 1.34 12/21/24 13:25 Sodium 138 mEq/L (136-145) 12/26/24 07:30 Potassium 3.8 mEq/L (3.5-5.1) 12/26/24 07:30 BUN 22 mg/dL (7-18) H 12/26/24 07:30 Creatinine 1.18 mg/dL (0.55-1.02) H 12/26/24 07:30 Glucose 104 mg/dL (74-106) 12/26/24 07:30 Magnesium 2.5 mg/dL (1.6-2.4) H 12/21/24 13:25 Total Bilirubin 0.4 mg/dL (0.2-1.0) 12/25/24 07:37 AST 15 U/L (15-37) 12/25/24 07:37 ALT < 14 U/L (13-56) 12/25/24 07:37 Alkaline Phosphatase 58 U/L (45-117) 12/25/24 07:37 Home Medications: Acetaminophen [Tylenol*] 650 mg PO Q4H PRN tab 12/01/24 Atorvastatin Calcium [Lipitor] 40 mg PO BEDTIME tab 12/01/24 Cyanocobalamin [Vitamin B-12*] 1,000 mcg PO DAILY tab 12/01/24 Diclofenac Sodium [Voltaren Arthritis Pain] 2 appl TOP DAILY tube 12/01/24 Levothyroxine [Synthroid*] 0.075 mg PO DAILYAC tab 12/01/24 Losartan Potassium [Cozaar*] 50 mg PO DAILY 12/01/24 Magnesium Lysinate Glycinate 1 tab PO BID 12/01/24 Ondansetron [Zofran (Odt)*] 4 mg PO Q4H PRN tab 12/01/24 hydroCHLOROthiazide [Hydrochlorothiazide*] 12.5 mg PO DAILY cap 12/01/24 Clopidogrel Bisulfate [Plavix] 75 mg PO DAILY 12/22/24 Loratadine [Claritin*] 10 mg PO DAILY 12/22/24 Topiramate [Topamax*] 25 mg PO DAILY@1800 30 Days #30 tab 12/26/24 traMADol HCL [Ultram*] 50 mg PO Q6H PRN 7 Days #28 tab 12/26/24 New Medications: Topiramate [Topamax*] 25 mg PO DAILY@1800 30 Days #30 tab traMADol HCL [Ultram*] 50 mg PO Q6H PRN 7 Days #28 tab PRN Reason: Pain Scale 5-7 (Moderate) Followup: Constantino Heart MD [ASSOCIATE-ACTIVE - CAN ADMIT] - Nelson Moon FNP [Primary Care Provider] - 1-2 Weeks
[2024-12-26] MEDS ORDERED: TOPIRAMATE 25 MG TAB PO SCH (18:00)
== END 2024-12-26 15:30 | disposition home or self-care (01) | DRG 65 ==
LOC: ER 12:03 → ERHOLD 18:02 → 2ND 18:19 → OBSVTOIN 12-22 15:38
PROVIDERS: ADMIT Family Medicine; ATTEND Family Medicine
DX: I63.9 Cerebral infarction, unspecified (principal); I47.20 Ventricular tachycardia, unspecified; R64 Cachexia; N17.9 Acute kidney failure, unspecified; I10 Essential (primary) hypertension; E03.9 Hypothyroidism, unspecified; F03.90 Unspecified dementia, unspecified severity, without behavioral disturbance, psychotic disturbance, mood disturbance, and anxiety; Z88.2 Allergy status to sulfonamides; Z88.0 Allergy status to penicillin; Z86.73 Personal history of transient ischemic attack (TIA), and cerebral infarction without residual deficits; Z79.890 Hormone replacement therapy; Z79.899 Other long term (current) drug therapy; Z79.02 Long term (current) use of antithrombotics/antiplatelets; Z68.29 Body mass index [BMI] 29.0-29.9, adult; Z66 Do not resuscitate
CPT/HCPCS: 36415; 70450; 70553; 71045; 80048; 80053; 80076; 81001; 83735; 83880; 84484; 85025; 85610; 93005; 96361; 96374; 96375; 97116; 97161; 97530; 99285; A4216; A9577; G0378; J0360; J1200; J1644; J2405; J2470; J2765; J7030; J7040